=== PATIENT | female | born 1935 | race Hispanic/Latino ===

== ENCOUNTER 2017-09-22 17:46 | Inpatient (IN) | payer MEDICARE, OTHER ==
[2017-09-22] MEDS ORDERED: Levalbuterol 1.25 MG/3 ML Inhal Soln UD IH STA ×2 (18:28→18:35)
--- NOTE | 2017-09-22 19:00 | RAD ---
HISTORY: cough COMPARISON: None. FINDINGS: LUNGS: Right upper lobe infiltrate/volume loss. Underlying mass is not excluded. Consolidative changes left lower lobe lateral segment. PLEURA: Left pleural effusion. CARDIOVASCULAR: No radiographic findings to suggest acute or significant cardiovascular disease. OSSEOUS STRUCTURES: No significant abnormalities. VISUALIZED UPPER ABDOMEN: Normal. OTHER FINDINGS: None. IMPRESSION: Infiltrate/ mass right upper lobe. Left pleural effusion likely partially loculated with underlying compressive atelectasis.
[2017-09-22 19:06] LABS: VENOUS BLOOD GAS BASE EXCESS 21.4 mmol/L (0.0-2.0); VENOUS BLOOD GAS PO2 27 mm/Hg (30-55); VENOUS BLOOD PH 7.34 (7.32-7.43)
[2017-09-22 19:13] LABS: BASO # 0.01 K/mm3 (0.0-2.0); BASO % 0.1 % (0.0-3.0); EOS # 0.2 (0.0-0.7); EOS % 1.3 % (1.5-5.0); GRAN # 8.49 (1.4-6.5); GRAN % 74.3 % (50.0-68.0); HEMOGLOBIN 11.4 g/dL (12.0-16.0); LYMPH # 1.4 (1.2-3.4); LYMPH % 12.1 % (22.0-35.0); MEAN CELL VOLUME 93.6 fl (80.0-105.0); MEAN CORPUSCULAR HEMOGLOBIN 27.2 pg (25.0-35.0); MEAN CORPUSCULAR HGB CONC 29.1 g/dl (31.0-37.0); MONO # 1.4 (0.1-0.6); MONO % 12.2 % (1.0-6.0); RBC 4.19 10^6/uL (3.5-6.1); RED CELL DISTRIBUTION WIDTH 15.1 % (11.5-14.5); WHITE BLOOD COUNT 11.4 10^3/ul (4.5-11.0)
[2017-09-22 19:17] LABS: ALBUMIN 3.7 g/dL (3.0-4.8); ALT/SGPT 32 U/L (7-56); AST/SGOT 23 U/L (14-36); BLOOD UREA NITROGEN 18 mg/dL (7-21); CALCIUM 10.3 mg/dL (8.4-10.5); GFR AFRICAN-AMERICAN > 60; GFR NON-AFRICAN AMERICAN > 60
[2017-09-22 19:20] LABS: PARTIAL THROMBOPLASTIN TIME 29.5 Seconds (25.1-36.5); PROTHROMBIN TIME 11.8 SECONDS (9.4-12.5)
[2017-09-22 19:29] LABS: B-TYPE NATRIURETIC PEPTIDE 93.2 pg/mL (0-450); TROPONIN I < 0.01 ng/mL
--- NOTE | 2017-09-22 19:49 | ED PDOC ---
Arrival/HPI - General Chief Complaint: Cough, Cold, Congestion Time Seen by Provider: 09/22/17 18:27 Historian: Patient - History of Present Illness Narrative History of Present Illness (Text): 09/22/17 19:46 82yo female with PMhx of COPD, Lung CA, hypothyroid, hypertension who present with complaint of greenish productive cough, generalized weakness and rhinorrhea. also reports worsening SOB for the past few days. States she uses oxygen at home. She reports that she did radiation last year, after she was diagnosed in 2016 with Lung CA. She denies fever, chills, nausea, vomiting, chest pain, sick contact, travel. Past Medical History - Provider Review Nursing Documentation Reviewed: Yes - Infectious Disease Hx of Infectious Diseases: None - Cardiac Hx Hypertension: Yes - Pulmonary Hx Chronic Obstructive Pulmonary Disease (COPD): Yes Other/Comment: Lung CA - Psychiatric Hx Substance Use: No Family/Social History - Physician Review Nursing Documentation Reviewed: Yes Family/Social History: Unknown Family HX Smoking Status: Never Smoked Hx Alcohol Use: No Hx Substance Use: No Allergies/Home Meds Allergies/Adverse Reactions: Allergies codeine Allergy (Verified 09/22/17 17:55) ANAPHYLAXIS Home Medications: Home Meds Medication Instructions Recorded Confirmed Aspirin [Ecotrin] 81 mg PO DAILY 09/22/17 09/22/17 Atorvastatin [Lipitor] 20 mg PO DAILY 09/22/17 09/22/17 Isosorbide Mononitrate [Isosorbide 30 mg PO DAILY 09/22/17 09/22/17 Mononitrate ER] Levetiracetam [Roweepra] 500 mg PO BID 09/22/17 09/22/17 Levothyroxine [Synthroid] 25 mcg PO DAILY 09/22/17 09/22/17 Losartan/Hydrochlorothiazide 100 tab PO DAILY 09/22/17 09/22/17 [Losartan-Hctz 100-25 mg Tab] Umeclidinium Brm/Vilanterol Tr 62.5 puff PO DAILY 09/22/17 09/22/17 [Anoro Ellipta 62.5-25 Mcg INH] Verapamil [Calan SR Tab] 240 mg PO DAILY 09/22/17 09/22/17 Review of Systems - Physician Review All systems were reviewed & negative as marked: Yes - Review of Systems Constitutional: Fatigue Eyes: Normal ENT: Normal Respiratory: SOB, Cough, Sputum. absent: Wheezing Cardiovascular: Normal Gastrointestinal: Normal Genitourinary Female: Normal Musculoskeletal: Normal Skin: Normal Neurological: Normal Endocrine: Normal Hemo/Lymphatic: Normal Psychiatric: Normal Physical Exam Vital Signs Reviewed: Yes Vital Signs Temp Pulse Resp BP Pulse Ox 09/22/17 20:08 77 18 141/71 100 09/22/17 18:03 97.5 F L 79 21 143/72 93 L Temperature: Afebrile Blood Pressure: Normal Pulse: Regular Respiratory Rate: Normal Appearance: Positive for: Well-Appearing, Non-Toxic, Comfortable Pain Distress: None Mental Status: Positive for: Alert and Oriented X 3 - Systems Exam Head: Present: Atraumatic, Normocephalic Pupils: Present: PERRL Extroacular Muscles: Present: EOMI Conjunctiva: Present: Normal Mouth: Present: Moist Mucous Membranes Neck: Present: Normal Range of Motion Respiratory/Chest: Present: Good Air Exchange, Decreased Breath Sounds (Diffuse decrease BS x 4). No: Respiratory Distress, Accessory Muscle Use, Wheezes, Rales, Retracting, Rhonchi, Tachypneic Cardiovascular: Present: Regular Rate and Rhythm, Normal S1, S2. No: Murmurs Abdomen: Present: Normal Bowel Sounds. No: Tenderness, Distention, Peritoneal Signs Back: Present: Normal Inspection Upper Extremity: Present: Normal Inspection. No: Cyanosis, Edema Lower Extremity: Present: Normal Inspection. No: Edema Neurological: Present: GCS=15, CN II-XII Intact, Speech Normal Skin: Present: Warm, Dry, Normal Color. No: Rashes Psychiatric: Present: Alert, Oriented x 3, Normal Insight, Normal Concentration Medical Decision Making ED Course and Treatment: 09/23/17 01:08 Pt presented for stated history. Her PO on NC was 93%. Mild leukocytosis was noted. CXR Right upper infiltrate with underlaying mass and LLL mass. Pt is already aware of the mass. Notes that she did Radiation last year. PT with multiple co morbidities, will be admitted for IV abx Case was DW Dr. Palomino and he accepted pt for admission. Result and plan was DW both pt and the daughter and they agreed. - Lab Interpretations Lab Results: 09/22/17 18:45 09/22/17 18:45 Lab Results 09/22/17 18:45: pO2 27 L, VBG pH 7.34, VBG pCO2 98.0 H*, VBG HCO3 52.9 H, VBG Total CO2 55.9 H, VBG O2 Sat (Calc) 57.9, VBG Base Excess 21.4 H, VBG Potassium 4.4, Sodium 138.0, Chloride 96.0 L, Glucose 126 H, Lactate 1.4, FiO2 21.0, Venous Blood Potassium 4.4 09/22/17 18:45: Sodium 141, Chloride 88 L, Potassium 4.4, Carbon Dioxide 39 H, Anion Gap 18, BUN 18, Creatinine 0.7, Est GFR ( Amer) > 60, Est GFR (Non- Af Amer) > 60, Random Glucose 121 H, Calcium 10.3, Total Bilirubin 0.4, AST 23, ALT 32, Alkaline Phosphatase 89, Lactate Dehydrogenase 311 L, Total Creatine Kinase 21 L, Troponin I < 0.01, NT-Pro-B Natriuret Pep 93.2, Total Protein 7.2, Albumin 3.7, Globulin 3.5, Albumin/Globulin Ratio 1.0 L 09/22/17 18:45: PT 11.8, INR 1.00, APTT 29.5 09/22/17 18:45: WBC 11.4 H, RBC 4.19, Hgb 11.4 L, Hct 39.2, MCV 93.6, MCH 27.2, MCHC 29.1 L, RDW 15.1 H, Plt Count 248, MPV 10.0, Gran % 74.3 H, Lymph % (Auto) 12.1 L, Bay % (Auto) 12.2 H, Eos % (Auto) 1.3 L, Baso % (Auto) 0.1, Gran # 8.49 H, Lymph # (Auto) 1.4, Bay # (Auto) 1.4 H, Eos # (Auto) 0.2, Baso # (Auto ) 0.01 - RAD Interpretation Radiology Orders: 09/22/17 18:28 CHEST PORTABLE [RAD] Stat - Medication Orders Current Medication Orders: Albuterol/Ipratropium (Duoneb 3 Mg/0.5 Mg (3 Ml) Ud) 3 ml IH Q2H PRN PRN Reason: Shortness of Breath Last Admin: 09/22/17 23:34 Dose: 3 ml Albuterol/Ipratropium (Duoneb 3 Mg/0.5 Mg (3 Ml) Ud) 3 ml IH [id number] KATE Last Admin: 09/23/17 01:07 Dose: Aspirin (Ecotrin) 81 mg PO DAILY KATE Ceftriaxone Sodium (Rocephin 1 Gram Ivpb) 1 gm in 100 mls @ 100 mls/hr IVPB DAILY KATE PRN Reason: Protocol Azithromycin 250 mg/ Sodium (Chloride) 250 mls @ 167 mls/hr IVPB DAILY KATE PRN Reason: Protocol Methylprednisolone (Solu-Medrol) 40 mg IV Q12 KATE Last Admin: 09/22/17 22:24 Dose: 40 mg eMAR Start Stop Document 09/22/17 22:24 OCS (Rec: 09/22/17 22:24 OCS [id number]) Intravenous Solution Start Date 09/22/17 Start Time 22:24 End Date 09/22/17 End time 22:26 Total Infusion Time 2 Pantoprazole Sodium (Protonix Ec Tab) 40 mg PO 0630 KATE Discontinued Medications Ceftriaxone Sodium (Rocephin 1 Gram Ivpb) 1 gm in 100 mls @ 200 mls/hr IVPB STAT STA PRN Reason: Protocol Stop: 09/22/17 20:24 Last Admin: 09/22/17 20:47 Dose: 200 mls/hr eMAR Start Stop Document 09/22/17 20:47 OCS (Rec: 09/22/17 20:48 OCS [id number]) Intravenous Solution Start Date 09/22/17 Start Time 20:48 End Date 09/22/17 End time 21:18 Total Infusion Time 30 Azithromycin (Zithromax 500mg In Ns) 500 mg in 250 mls @ 167 mls/hr IVPB STAT STA PRN Reason: Protocol Stop: 09/22/17 21:24 Last Admin: 09/22/17 22:24 Dose: 167 mls/hr eMAR Start Stop Document 09/22/17 22:24 OCS (Rec: 09/22/17 22:25 OCS [id number]) Intravenous Solution Start Date 09/22/17 Start Time 22:25 End Date 09/22/17 End time 23:55 Total Infusion Time 90 Levalbuterol HCl (Xopenex) 1.25 mg IH STAT STA Stop: 09/22/17 18:29 Last Admin: 09/22/17 19:45 Dose: 1.25 mg Levalbuterol HCl (Xopenex) 1.25 mg IH STAT STA Stop: 09/22/17 18:36 Last Admin: 09/22/17 20:48 Dose: Methylprednisolone (Solu-Medrol) 125 mg IVP STAT STA Stop: 09/22/17 18:29 Last Admin: 09/22/17 19:45 Dose: 125 mg IVP Administration Document 09/22/17 19:45 [email or web address] (Rec: 09/22/17 19:45 [id number] Charges for Administration # of IVP Administrations 1 Disposition/Present on Arrival - Present on Arrival Any Indicators Present on Arrival: No History of DVT/PE: No History of Uncontrolled Diabetes: No Urinary Catheter: No History of Decub. Ulcer: No History Surgical Site Infection Following: None - Disposition Have Diagnosis and Disposition been Completed?: Yes Diagnosis: Pneumonia, Lung cancer Disposition: HOSPITALIZED Disposition Time: 19:50 Patient Problems: Current Active Problems Problem Status Onset Lung cancer Acute Pneumonia Acute Condition: FAIR
[2017-09-22] MEDS ORDERED: Azithromycin 500MG/NS 250ml 500 MG/250 ML BAG IVPB STA (19:55)
[2017-09-22] MEDS ORDERED: cefTRIAXone 1 gm 1 GM/100 ML BAG IVPB STA (19:55)
[2017-09-22] MEDS ORDERED: Albuterol-Ipratrop 3 mg / 0.5 (3 ml) UD IH PRN (21:24)
[2017-09-22] MEDS: MethylPREDNISolone 40 mg Vial IV SCH (22:24)
[2017-09-23] MEDS: Albuterol-Ipratrop 3 mg / 0.5 (3 ml) UD IH SCH ×4 (01:07→19:40)
[2017-09-23] MEDS: Pantoprazole 40 mg EC Tab PO SCH (06:59)
--- NOTE | 2017-09-23 08:06 | HP ---
HISTORY OF PRESENT ILLNESS: The patient is 82-year-old, seen and examined, came to the emergency room because of increasing cough, congestion, and shortness of breath, has been going on for almost a week, got worse today, complained of generalized weakness, complained of having productive yellow phlegm with increasing weakness and runny nose. PAST MEDICAL HISTORY: The patient has a significant past medical history of: 1. COPD. 2. History of CA of lung. 3. Hypothyroidism. 4. Hypertension. The patient had radiation done last year. She was diagnosed with CA of lung in 2016. ALLERGIES: THE PATIENT IS ALLERGIC TO CODEINE. MEDICATIONS AT HOME: She is on home oxygen and omeprazole. SOCIAL HISTORY: Denies smoking, drinking or alcohol use. REVIEW OF SYSTEMS: Significant for generalized weakness, increasing shortness of breath, or cough. PHYSICAL EXAMINATION GENERAL: On examination, the patient is awake, alert, oriented and communicative. VITAL SIGNS: The patient is afebrile. Pulse 79, respirations 21, and blood pressure 140/71. LUNGS: Bilateral decreased breath sounds. HEART: S1 and S2 audible. ABDOMEN: Soft, nontender. No rebound. No guarding. NEUROLOGIC: The patient is awake, alert, oriented, and able to communicate. LABORATORY EXAM: WBC 11.4, hemoglobin 11.4, hematocrit 39.2, and platelets 248,000. PT 11.8 and INR 1.00. Chemistries: Sodium 141, potassium 4.4, chloride 88, CO2 39, BUN 18, creatinine 0.7, and blood sugar 121. LFTs are within normal limits. LDH is 311. Troponin is 0.01, BNP 93. X-ray shows right upper lobe infiltrate and has mass in the left upper lung. ASSESSMENT 1. Right upper lobe infiltrate. 2. Left upper lobe mass. 3. Hypertension. 4. Hyperlipidemia. 5. History of carcinoma of lung, status post radiation. PLAN: This patient will be admitted; started on IV steroids, IV antibiotics, nebulizer treatment. Monitor blood sugar, monitor blood pressure. Rosana Palomino MD
[2017-09-23] MEDS: cefTRIAXone 1 gm 1 GM/100 ML BAG IVPB SCH (11:10)
[2017-09-23] MEDS: MethylPREDNISolone 40 mg Vial IV SCH ×2 (11:10→21:34)
[2017-09-23] MEDS: Azithromycin 250 MG in Sodium Chloride 0.9% 250 ML IVPB SCH (11:11)
[2017-09-23] MEDS ORDERED: [UNRECOGNIZED DRUG - OTHER] PO SCH (12:15)
[2017-09-23] MEDS ORDERED: HYDROCHLOROTHIAZIDE PO SCH (12:15)
[2017-09-23] MEDS ORDERED: LOSARTAN PO SCH (12:15)
[2017-09-23] MEDS: Levothyroxine 25 MCG TAB PO SCH (12:18)
[2017-09-23] MEDS: Verapamil 240 mg ER Tab PO SCH (12:50)
--- NOTE | 2017-09-23 14:29 | CT ---
PROCEDURE: CT Chest without contrast HISTORY: lung mass COMPARISON: None. TECHNIQUE: Contiguous axial images were obtained through the chest without intravenous contrast enhancement. Sagittal and coronal reconstructions were performed. Radiation dose (DLP): 530.42 mGy-cm. This CT exam was performed using one or more of the following dose reduction techniques: Automated exposure control, adjustment of the mA and/or kV according to patient size, and/or use of iterative reconstruction technique. FINDINGS: LUNGS: There is a right upper lobe mass, irregular in shape, measuring approximately 4.4 x 2.9 x 2.5 cm. There is associated minimal right upper lobe atelectasis abutting the minor fissure. Mass extends to the right hilum. There is no other pulmonary mass identified. There is mild centrilobular pulmonary emphysema. There is no acute infiltrate. There is minimal left lower lobe subsegmental atelectasis adjacent to a small pleural effusion. MEDIASTINUM: Unremarkable thoracic aorta. No aneurysm. Mild cardiomegaly. There is shift of the heart and mediastinum towards the left side which should indicate some left-sided volume loss though there is no atelectasis evident. Main pulmonary artery unremarkable. No vascular congestion. There is mild mediastinal lymphadenopathy. There is a 1.5 cm short axis precarinal lymph node. Several other minimally enlarged mediastinal nodes are evident. The left hilum is unremarkable. PLEURA: Minimal left pleural effusion. No right pleural effusion. No pneumothorax. BONES: No fracture. No destructive lesion. UPPER ABDOMEN: Small hiatal hernia. OTHER FINDINGS: None. IMPRESSION: Irregular right upper lobe mass with mild associated right upper lobe atelectasis. The mass measures approximately 4.4 cm in greatest dimension. Strongly suspicious for malignancy. Extension to right hilum with mild associated mediastinal lymphadenopathy. Very small left pleural effusion. Left-sided volume loss without evidence of atelectasis, as demonstrated by shift of heart and mediastinum towards the left side. Mild cardiomegaly. Small hiatal hernia. Mild centrilobular pulmonary emphysema.
--- NOTE | 2017-09-23 15:53 | PN ---
DATE: SUBJECTIVE: The patient is 82 years old, seen and examined, seems to be doing a little better. Daughter present at bedside. Denies any nausea or vomiting. No diarrhea, no shortness of breath. PHYSICAL EXAMINATION: VITAL SIGNS: She is afebrile, pulse 82, respirations 24, blood pressure 130/75. LUNGS: Bilateral few expiratory rhonchi. HEART: S1, S2 audible. ABDOMEN: Soft, nontender. No rebound, no guarding. NEUROLOGIC: She is awake, alert, oriented. Able to communicate. LABORATORY DATA: Her blood sugar is 187. Flu test is negative. ASSESSMENT: 1. Right upper lobe pneumonia. 2. Chronic obstructive pulmonary disease exacerbation. 3. History of cancer of lung, status post radiation, last 08/2016. 4. Left pleural effusion, partially loculated with underlying compressive atelectasis. 5. Hypothyroidism. 6. History of seizure disorder. PLAN: We will continue patient on antibiotics. I will order for CT scan of the chest to see details of the mass. As per patient's daughter, they were told that mass has almost gone away. Once the CT scan is available, we will discuss with patient further management. Rosana Palomino MD
[2017-09-24] MEDS: Albuterol-Ipratrop 3 mg / 0.5 (3 ml) UD IH SCH ×4 (01:27→20:02)
[2017-09-24] MEDS: Pantoprazole 40 mg EC Tab PO SCH (06:22)
[2017-09-24] MEDS: Levothyroxine 25 MCG TAB PO SCH (11:38)
[2017-09-24] MEDS: Verapamil 240 mg ER Tab PO SCH (11:39)
[2017-09-24] MEDS: cefTRIAXone 1 gm 1 GM/100 ML BAG IVPB SCH (11:40)
[2017-09-24] MEDS: MethylPREDNISolone 40 mg Vial IV SCH ×2 (11:40→22:06)
[2017-09-24 12:05] LABS: ARTERIAL BLOOD GAS HEMOGLOBIN 11.1 g/dL (11.7-17.4); ARTERIAL BLOOD GAS O2 CAPACITY 15.4 mL/dl (16-24); ARTERIAL BLOOD GAS O2 CONTENT 15.2 ML/dl (15-23); ARTERIAL BLOOD GAS PCO2 64 mm/Hg (35-45); ARTERIAL BLOOD GAS PH 7.42 (7.35-7.45); ARTERIAL BLOOD GAS TCO2 43.5 mmol.L (22-28)
[2017-09-24 12:10] LABS: ARTERIAL BLOOD GAS HCO3 41.5 mmol/L (21-28)
[2017-09-24] MEDS: Azithromycin 250 MG in Sodium Chloride 0.9% 250 ML IVPB SCH (13:00)
--- NOTE | 2017-09-24 15:56 | PN ---
DATE: SUBJECTIVE: The patient is 82-year-old, seen and examined, lying in bed, seems to be comfortable. No cough. No congestion. No nausea or vomiting. She states her shortness of breath is much better. PHYSICAL EXAMINATION: VITAL SIGNS: She is afebrile, pulse 88, respirations 20, and blood pressure 126/67. LUNGS: Bilateral good airflow. Occasional expiratory rhonchi. HEART: S1 and S2 audible. ABDOMEN: Soft and nontender. No rebound. No guarding. NEUROLOGIC: The patient is awake, alert, oriented, ambulatory. EXTREMITIES: Bilateral leg, no edema. LABORATORY DATA: Blood sugar is 174. She has CT scan of the chest done that shows irregular right upper lobe mass with mild associated right upper lobe atelectasis. Mass measures 4.4 cm in greatest dimension, suspicious for malignancy, extension to the right hilum with mild associated mediastinal lymphadenopathy, very small left pleural effusion, left side volume loss without evidence of atelectasis. ASSESSMENT: 1. Chronic obstructive pulmonary disease exacerbation. 2. Bronchospasm. 3. Right upper lung mass, status post 36 rounds of radiation. 4. History of seizure disorder. 5. Hypothyroidism. 6. Hypertension. 7. Hyperlipidemia. PLAN: We will continue the patient on current medication. Continue on nebulizer treatment. The patient states she became little confused and disoriented last night. I will cut down her steroids since her wheezing has improved. We will follow up closely in a.m. and taper down her steroids. Encourage ambulation and we will reevaluate in a.m. Rosana Palomino MD
[2017-09-24] MEDS: Budesonide 0.5 mg/2 ml Inhal Susp UD IH SCH (20:02)
--- NOTE | 2017-09-24 21:40 | CON ---
DATE: PULMONARY CONSULTATION REASON FOR CONSULTATION: Lung mass. REFERRING PHYSICIAN: Rosana Palomino MD. HISTORY OF PRESENT ILLNESS: The patient is an 82-year-old female, with past medical history significant for advanced lung cancer (diagnosed in 2016), status post radiation therapy (no chemotherapy), advanced chronic obstructive pulmonary disease(on home oxygen), hypothyroidism, hypertension, who presents to [facility] with increasing shortness of breath at rest, dyspnea on exertion, cough, and sputum production for 1 week. There is no history of chest pain, coughing up of blood, or chest pain - made worse with deep respirations. There is no history of temperatures, chills, or infectious exposure. There is no history of night sweats, weight loss, or appetite change prior to the above events. No history of leg or calf pains. No history of syncope or diaphoresis. No history of recent travel or trauma. REVIEW OF SYSTEMS: No history of nausea, vomiting, or diarrhea. No acute urinary symptoms. No new neurologic or musculoskeletal complaints. Rest of the review of systems negative. ALLERGIES: CODEINE. SOCIAL HISTORY: Positive for former tobacco usage. No alcohol. FAMILY HISTORY: No inheritable diseases. HOME MEDICATIONS: Include Synthroid, Ecotrin, losartan, Lipitor, isosorbide mononitrate, Anoro Ellipta. PHYSICAL EXAMINATION: GENERAL: Patient appears comfortable this morning. She is not short of breath at rest. VITAL SIGNS: Temperature is 98.2, pulse 88, respirations 18/20, blood pressure 126/67. Oxygen saturation on nasal cannula is 96%. HEENT: Normocephalic and atraumatic. No JVD. CARDIOVASCULAR: Systolic ejection murmur at the lower left sternal border. No S3 gallop. LUNGS: Decreased breath sounds at the bases. Mild bilateral rhonchi and wheezing are appreciated. EXTREMITIES: Mild edema. No cyanosis, no clubbing. Calves are nontender to palpation. GASTROINTESTINAL: Abdomen is soft, nontender, and nondistended. Bowel sounds are positive. SKIN: No acute rash. NEUROLOGIC: Exam limited to present time. PERTINENT LABORATORY DATA: CAT scan of the chest was done yesterday and reviewed. There is a large right upper lobe lung mass seen. There is also a small left pleural effusion with adjacent atelectasis. There is also increased mediastinal lymphadenopathy noted. CBC: White count 11.4, hemoglobin 11.4, hematocrit 39.2, platelets of 248,000. Complete metabolic profile: Chloride 88, carbon dioxide 39, glucose 121, LDH 311, rest of the metabolic profile is within normal limits. IMPRESSION: 1. Acute bronchitis. 2. Advanced chronic obstructive pulmonary disease, on home oxygen. 3. Advanced lung cancer. 4. Mild anemia. PLAN: The patient presents to [facility] with a 1-week history of worsening pulmonary symptoms. I did question the patient at length, as well as reviewed the chart at length. The patient does have a history of advanced lung cancer -- first diagnosed in 2016. As per the patient, the cancer was first diagnosed in both of the upper lobes. As above, I did review the CAT scan of the chest. The CAT scan of the chest reveals a large right upper lobe mass. There is also associated mediastinal adenopathy. Lastly, there is also a small left pleural effusion with adjacent atelectasis. I will discuss the above history with the nursing staff and nurse practitioner. We will try to get the old records from [place] as soon as possible. On physical exam, there is mild bronchospasm noted. I will continue the current nebulizer treatments and intravenous steroids for now. I will also add inhaled Pulmicort. The patient has also been placed on intravenous antibiotic therapy. There is no history of temperatures. There is a mild leukocytosis. I will continue with the antibiotic therapy for now. The patient does feel better this morning and is clinically improved -- compared to the past few days. However, unfortunately, her overall status/prognosis is poor. Again, we will try to obtain the old records from [place] as soon as possible. I will discuss the above with Dr. Palomino. Thank you very much for this pulmonary consultation. Ace Tovar MD ITA
[2017-09-25] MEDS: Albuterol-Ipratrop 3 mg / 0.5 (3 ml) UD IH SCH ×4 (01:16→19:58)
[2017-09-25] MEDS: Pantoprazole 40 mg EC Tab PO SCH (07:37)
--- NOTE | 2017-09-25 08:58 | PN ---
DATE: 09/25/2017 PULMONARY NOTE SUBJECTIVE: The patient appears very comfortable this morning. She is not short of breath at rest. PHYSICAL EXAMINATION VITAL SIGNS: (Last noted in the computer): Temperature is 98.2, pulse 88, respirations 18, blood pressure 126/67. Oxygen saturation on nasal cannula is 96%. HEENT: Normocephalic, atraumatic. No JVD. CARDIOVASCULAR: Systolic ejection murmur at the lower left sternal border. No S3 gallop. LUNGS: Improved breath sounds at the bases. Mild/less rhonchi. No wheezing this morning. EXTREMITIES: Mild edema. No cyanosis, no clubbing. Calves are nontender to palpation. GI: Abdomen is soft, nontender and nondistended. Bowel sounds are positive. SKIN: No acute rash. NEUROLOGIC: Limited at the present time. PERTINENT LABORATORY DATA: Arterial blood gas was done yesterday on nasal cannula. Results are: PH 7.42, pCO2 of 64, pO2 of 93. IMPRESSION: 1. Acute bronchitis. 2. Advanced chronic obstructive pulmonary disease, on home oxygen. 3. Advanced lung cancer. 4. Mild anemia. PLAN: The patient appears very comfortable this morning. She is not short of breath at rest. She does state to feeling much, much better overall. On physical exam, there is certainly less bronchospasm noted. I will continue the current nebulizer treatments and low-dose intravenous steroids (decreased yesterday) for now. I have also reviewed the arterial blood gas. The pCO2 is significantly elevated. However, the pH is normal - indicating advanced chronic lung disease. As noted yesterday, I did discuss the CAT scan findings with the patient at length. I also discussed the case with the nurse practitioner on 5R. We are trying to obtain the records from [place]. I believe the patient has had maximum radiation already. She is definitely not interested in chemotherapy at this point in time. The patient also has two grandchildren who are physicians. I asked the patient to give my number(she has my card) to the grandchildren-- so that we can have additional conversation. Clinical status of the patient is significantly improved - compared to the initial presentation. However, again, unfortunately, the future status/prognosis for this jeffrey elderly patient does remain poor. I did discuss the above with Dr. Palomino yesterday. I will also discuss the case with her today. Ace Tovar MD [facility] # [id number] ITA
[2017-09-25] MEDS: MethylPREDNISolone 40 mg Vial IV SCH ×2 (10:20→21:25)
[2017-09-25] MEDS: Levothyroxine 25 MCG TAB PO SCH (10:20)
[2017-09-25] MEDS: Verapamil 240 mg ER Tab PO SCH (10:22)
[2017-09-25] MEDS: cefTRIAXone 1 gm 1 GM/100 ML BAG IVPB SCH (10:22)
[2017-09-25] MEDS: Azithromycin 250 MG in Sodium Chloride 0.9% 250 ML IVPB SCH (12:00)
[2017-09-25] MEDS: Budesonide 0.5 mg/2 ml Inhal Susp UD IH SCH ×2 (13:51→19:58)
[2017-09-25 17:14] VITALS: RESP 20
--- NOTE | 2017-09-25 20:17 | PN ---
DATE: SUBJECTIVE: The patient is an 82-year-old, seen and examined, sitting in chair, seems to be comfortable. Less cough and congestion. No shortness of breath. PHYSICAL EXAMINATION: VITAL SIGNS: She is afebrile, pulse 84, respirations 18, blood pressure 118/70. LUNGS: Bilateral fair airflow. Few occasional rhonchi on the right upper lung region. HEART: S1, S2 audible. ABDOMEN: Soft, nontender. No rebound, no guarding. NEUROLOGIC: Patient is awake and alert, able to communicate. LABORATORY DATA: Blood sugar is 174. Flu test is negative. ASSESSMENT AND PLAN: 1. Right upper lung mass. 2. Asthmatic bronchitis. 3. Chronic obstructive pulmonary disease exacerbation. 4. Hypertension. 5. Seizure disorder. 6. Hyperlipidemia. PLAN: The patient is slowly improving. Steroid has been tapered down. Continue antibiotics, and get physical therapy evaluation to assess if she is a candidate to go home on p.o. medication or she needs rehab. Rosana Palomino MD
[2017-09-26] MEDS: Albuterol-Ipratrop 3 mg / 0.5 (3 ml) UD IH SCH ×3 (01:53→13:14)
[2017-09-26] MEDS: Pantoprazole 40 mg EC Tab PO SCH (06:33)
[2017-09-26] MEDS: Budesonide 0.5 mg/2 ml Inhal Susp UD IH SCH (07:40)
[2017-09-26 09:08] VITALS: BP 132/63; PULSE 84; TEMP 98.8; O2SAT 95
--- NOTE | 2017-09-26 09:08 | PN ---
DATE: 09/26/2017 PULMONARY NOTE SUBJECTIVE: The patient appears very comfortable this morning. She is not short of breath at rest. PHYSICAL EXAMINATION VITAL SIGNS: (Last noted in the computer): Temperature is 97.9, pulse is 56, respirations 18, blood pressure 124/57. Oxygen saturation on nasal cannula is 100%. HEENT: Normocephalic, atraumatic. No JVD. CARDIOVASCULAR: Systolic ejection murmur at the lower left sternal border. No S3 gallop. LUNGS: Very minimal/less rhonchi. No wheezing. EXTREMITIES: Mild edema. No cyanosis, no clubbing. Calves are nontender to palpation. GI: Abdomen is soft, nontender and nondistended. Bowel sounds are positive. SKIN: No acute rash. NEUROLOGIC: Limited at the present time. IMPRESSION: 1. Acute bronchitis. 2. Advanced chronic obstructive pulmonary disease, on home oxygen. 3. Advanced lung cancer. 4. Mild anemia. PLAN: The patient appears very comfortable this morning. She is not short of breath at rest. She does state to feeling much, much better overall. On physical exam, her bronchospasm continues to resolve. In addition, the oxygen saturation is now 100% on nasal cannula. I will continue the current nebulizer treatments and change to oral steroids this morning. I did have a long talk with the patient again in reference to her CAT scan and overall condition. At this point in time, the patient does not want any additional evaluation regarding her right upper lobe lung mass. She also stated to me again that she does not want any chemotherapy. I then offered the idea of getting a PET scan as an outpatient - to more adequately assess her disease. She also does not want any PET scanning done. I then asked the patient if she can call her daughter - so I can meet with her this morning. A tentative meeting is scheduled at 11:00 a.m. In addition, we have not received any old records from [place]. I did discuss this issue with the nursing staff this morning. The clinical status of this patient is significantly improved - compared to the initial presentation. However, again, unfortunately, the future status/prognosis for this jeffrey elderly patient is very poor. Again, I have a tentative family meeting scheduled at 11:00 a.m. I will discuss the above with Dr. Palomino later this morning. Ace Tovar MD [facility] # [id number]
[2017-09-26] MEDS: Verapamil 240 mg ER Tab PO SCH (09:38)
[2017-09-26] MEDS: Levothyroxine 25 MCG TAB PO SCH (09:38)
[2017-09-26] MEDS: cefTRIAXone 1 gm 1 GM/100 ML BAG IVPB SCH (09:43)
[2017-09-26] MEDS: Azithromycin 250 MG in Sodium Chloride 0.9% 250 ML IVPB SCH (09:44)
[2017-09-27] MEDS ORDERED: Cefpodoxime (Vantin) 200 mg Tab PO SCH (10:00)
== END 2017-09-26 15:00 | disposition home or self-care (01) | DRG 194 ==
LOC: ED 17:46 → ERH 20:11 → 5RNO 23:09 → OBSVTOIN 09-23 17:05 → UNDODISIN 09-24 14:57
PROVIDERS: ADMIT Internal Medicine; ATTEND Internal Medicine
DX: J18.9 Pneumonia, unspecified organism (principal); J44.1 Chronic obstructive pulmonary disease with (acute) exacerbation; C34.11 Malignant neoplasm of upper lobe, right bronchus or lung; J44.0 Chronic obstructive pulmonary disease with (acute) lower respiratory infection; J20.9 Acute bronchitis, unspecified; J90 Pleural effusion, not elsewhere classified; J98.11 Atelectasis; D64.9 Anemia, unspecified; E03.9 Hypothyroidism, unspecified; E78.5 Hyperlipidemia, unspecified; G40.909 Epilepsy, unspecified, not intractable, without status epilepticus; I10 Essential (primary) hypertension; Z99.81 Dependence on supplemental oxygen; Z79.82 Long term (current) use of aspirin; Z87.891 Personal history of nicotine dependence; Z88.5 Allergy status to narcotic agent

== ENCOUNTER 2017-12-18 19:07 | Inpatient (IN) | payer MEDICARE ==
--- NOTE | 2017-12-18 19:30 | ED PDOC ---
Arrival/HPI - General Chief Complaint: Shortness Of Breath Time Seen by Provider: 12/18/17 19:23 - History of Present Illness Narrative History of Present Illness (Text): 82 y/o F c PMHx COPD, Lung CA, hypothyroid, hypertension p/w dyspnea x 1 week. Patient states she has dyspnea at baseline but worse than typical for the past week, which she states feels similar to previous COPD exacerbations and dyspnea from lung cancer. She is on home O2 at 3.5 L. She denies fever, chills, body aches, chest pain, leg swelling, vomiting, recent travel, sick contacts. PMD Kerry Cortes Past Medical History - Infectious Disease Hx of Infectious Diseases: None - Cardiac Hx Hypertension: Yes - Pulmonary Hx Chronic Obstructive Pulmonary Disease (COPD): Yes Other/Comment: Lung CA Stage 4 - Neurological Hx Neurological Disorder: No - HEENT Hx Cataracts: Yes (B/L removed) - Renal Hx Renal Disorder: No - Endocrine/Metabolic Hx Endocrine Disorders: Yes Hx Hypothyroidism: Yes - Hematological/Oncological Hx Cancer: Yes (lung ca 2016) - Integumentary Hx Dermatological Disorder: No - Musculoskeletal/Rheumatological Hx Musculoskeletal Disorders: No Hx Falls: No - Gastrointestinal Hx Gastrointestinal Disorders: No - Genitourinary/Gynecological Hx Genitourinary Disorders: No - Psychiatric Hx Psychophysiologic Disorder: No Hx Substance Use: No Family/Social History Family/Social History: No Known Family HX Smoking Status: Never Smoked Hx Alcohol Use: No Hx Substance Use: No Allergies/Home Meds Allergies/Adverse Reactions: Allergies codeine Allergy (Verified 12/18/17 19:19) ANAPHYLAXIS Home Medications: Home Meds Medication Instructions Recorded Confirmed Aspirin [Ecotrin] 81 mg PO DAILY 09/22/17 09/22/17 Atorvastatin [Lipitor] 20 mg PO DAILY 09/22/17 09/22/17 Isosorbide Mononitrate [Isosorbide 30 mg PO DAILY 09/22/17 09/22/17 Mononitrate ER] Levetiracetam [Roweepra] 500 mg PO BID 09/22/17 09/22/17 Levothyroxine [Synthroid] 25 mcg PO DAILY 09/22/17 09/22/17 Losartan/Hydrochlorothiazide 100 tab PO DAILY 09/22/17 09/22/17 [Losartan-Hctz 100-25 mg Tab] Umeclidinium Brm/Vilanterol Tr 62.5 puff PO DAILY 09/22/17 09/22/17 [Anoro Ellipta 62.5-25 Mcg INH] Verapamil [Calan SR Tab] 240 mg PO DAILY 09/22/17 09/22/17 Review of Systems - Physician Review All systems were reviewed & negative as marked: Yes - Review of Systems Constitutional: absent: Fevers Cardiovascular: absent: Chest Pain Physical Exam - Physical Exam Narrative Physical Exam (Text): Gen: NAD Head: NC/AT Eyes: PERRL ENT: MMM Neck: Supple Chest: No tenderness CV: Regular rate Lungs: Diffuse minimal wheezing, decreased breath sounds, pulse oximetry 99% on 3.5 L NC Abd: Soft, NT Back: No CVA tenderness Extremities: No edema Skin: No rash Neuro: Alert, no focal deficit Vital Signs Temp Pulse Resp BP Pulse Ox 12/18/17 19:16 98.0 F 81 18 142/78 97 12/18/17 19:15 86 18 142/78 91 L Medical Decision Making ED Course and Treatment: Differential includes COPD exacerbation, worsening chronic dyspnea from COPD/ lung cancer, pneumonia, pleural effusion. Plan: CXR, labs, duonebs, steroids. EKG NSR 87 bpm, no ST/T wave changes CXR no new consolidation, unchanged from previous. Patient with increased wheezing after duonebs, improving air movement. 12/18/17 21:23: Case discussed in detail with Dr. Palomino. Accepts patient to her service. - Lab Interpretations Lab Results: 12/18/17 19:42 12/18/17 19:42 Lab Results 12/18/17 19:42: Sodium 142, Potassium 4.4, Chloride 90 L, Carbon Dioxide 45 H, Anion Gap 11, BUN 17, Creatinine 0.6 L, Est GFR ( Amer) > 60, Est GFR ( Non-Af Amer) > 60, Random Glucose 123 H, Calcium 10.1, Total Bilirubin 0.5, AST 26, ALT 24, Alkaline Phosphatase 88, Total Creatine Kinase 33 L, Troponin I < 0.01, NT-Pro-B Natriuret Pep 94.0, Total Protein 6.8, Albumin 3.8, Globulin 3.1 , Albumin/Globulin Ratio 1.2 12/18/17 19:42: WBC 11.1 H, RBC 4.06, Hgb 11.1 L, Hct 37.8, MCV 93.1, MCH 27.3, MCHC 29.4 L, RDW 15.6 H, Plt Count 262, MPV 9.4, Gran % 76.2 H, Lymph % (Auto) 10.7 L, Mcduffie % (Auto) 11.5 H, Eos % (Auto) 1.5, Baso % (Auto) 0.1, Gran # 8.44 H , Lymph # (Auto) 1.2, Mcduffie # (Auto) 1.3 H, Eos # (Auto) 0.2, Baso # (Auto) 0.01 - RAD Interpretation Radiology Orders: 12/18/17 19:24 CHEST PORTABLE [RAD] Stat - Medication Orders Current Medication Orders: Discontinued Medications Albuterol/Ipratropium (Duoneb 3 Mg/0.5 Mg (3 Ml) Ud) 3 ml IH Q15M KATE Stop: 12/18/17 20:01 Last Admin: 12/18/17 20:14 Dose: 3 ml Methylprednisolone (Solu-Medrol) 125 mg IVP STAT STA Stop: 12/18/17 19:25 Last Admin: 12/18/17 19:45 Dose: 125 mg IVP Administration Document 12/18/17 19:45 HI (Rec: 12/18/17 19:45 HI [id number]) Charges for Administration # of IVP Administrations 1 Disposition/Present on Arrival - Present on Arrival Any Indicators Present on Arrival: No History of DVT/PE: No History of Uncontrolled Diabetes: No Urinary Catheter: No History of Decub. Ulcer: No History Surgical Site Infection Following: None - Disposition Have Diagnosis and Disposition been Completed?: Yes Diagnosis: COPD exacerbation Disposition: HOSPITALIZED Disposition Time: 20:34 Patient Plan: Observation, Telemetry Condition: FAIR Referrals: Miriam Payne MD [Primary Care Provider] - Follow up with primary Forms: [employer] (Senegalese)
[2017-12-18] MEDS: Albuterol-Ipratrop 3 mg / 0.5 (3 ml) UD IH SCH ×3 (19:45→20:14)
[2017-12-18 19:59] LABS: BASO # 0.01 K/mm3 (0.0-2.0); BASO % 0.1 % (0.0-3.0); EOS # 0.2 (0.0-0.7); EOS % 1.5 % (1.5-5.0); GRAN # 8.44 (1.4-6.5); GRAN % 76.2 % (50.0-68.0); HEMOGLOBIN 11.1 g/dL (12.0-16.0); LYMPH # 1.2 (1.2-3.4); LYMPH % 10.7 % (22.0-35.0); MEAN CELL VOLUME 93.1 fl (80.0-105.0); MEAN CORPUSCULAR HEMOGLOBIN 27.3 pg (25.0-35.0); MEAN CORPUSCULAR HGB CONC 29.4 g/dl (31.0-37.0); MEAN PLATELET VOLUME 9.4 fl (7.0-11.0); MONO # 1.3 (0.1-0.6); MONO % 11.5 % (1.0-6.0); RBC 4.06 10^6/uL (3.5-6.1); RED CELL DISTRIBUTION WIDTH 15.6 % (11.5-14.5); WHITE BLOOD COUNT 11.1 10^3/ul (4.5-11.0)
[2017-12-18 20:16] LABS: ALB/GLOB RATIO 1.2 (1.1-1.8); ALBUMIN 3.8 g/dL (3.0-4.8); ALT/SGPT 24 U/L (7-56); AST/SGOT 26 U/L (14-36); BLOOD UREA NITROGEN 17 mg/dL (7-21); CALCIUM 10.1 mg/dL (8.4-10.5); GFR AFRICAN-AMERICAN > 60; GFR NON-AFRICAN AMERICAN > 60
[2017-12-18 20:25] LABS: TROPONIN I < 0.01 ng/mL
[2017-12-18] MEDS ORDERED: Albuterol-Ipratrop 3 mg / 0.5 (3 ml) UD IH PRN (22:47)
[2017-12-19] MEDS: MethylPREDNISolone 40 mg Vial IV SCH ×3 (00:36→21:56)
[2017-12-19] MEDS: Albuterol-Ipratrop 3 mg / 0.5 (3 ml) UD IH SCH ×4 (01:44→20:00)
[2017-12-19] MEDS ORDERED: Albuterol-Ipratrop 3 mg / 0.5 (3 ml) UD IH SCH (02:00)
[2017-12-19 02:33] VITALS: BMI 26.6
[2017-12-19] MEDS: Pantoprazole 40 mg EC Tab PO SCH (06:20)
[2017-12-19] MEDS: Levothyroxine 25 MCG TAB PO SCH (06:21)
--- NOTE | 2017-12-19 07:04 | RAD ---
HISTORY: dyspnea COMPARISON: 09/22/2017 single-view chest. 09/23/2017 CT thorax Summary of findings on the comparison examination: There is a right upper lobe mass, irregular in shape, measuring approximately 4.4 x 2.9 x 2.5 cm. There is associated minimal right upper lobe atelectasis abutting the minor fissure. Mass extends to the right hilum. FINDINGS: LUNGS: Consolidative changes, volume loss affecting right upper lobe. These are progressive. PLEURA: Stable left pleural effusion. CARDIOVASCULAR: Normal. OSSEOUS STRUCTURES: No significant abnormalities. VISUALIZED UPPER ABDOMEN: Normal. OTHER FINDINGS: None. IMPRESSION: Progressive consolidative changes/mass right upper lobe.
[2017-12-19] MEDS: Verapamil 240 mg ER Tab PO SCH (09:56)
[2017-12-19] MEDS: levoFLOXacin 500 mg in D5W 500 MG/100 ML BAG IVPB SCH (09:58)
--- NOTE | 2017-12-19 10:59 | HP ---
HISTORY OF PRESENT ILLNESS: The patient is an 82-year-old, patient of , came to the Emergency Room because of some increasing shortness of breath. No history of fever or chills. Patient states she was admitted in September and had similar complaints. She was unable to catch her breath. She has been having generalized weakness. Patient takes nebulizer treatment and home oxygen but despite of doing all these, she was still having shortness of breath, came to Emergency Room for further evaluation. No history of hemoptysis. No hematemesis. Does complain of generalized weakness. PAST MEDICAL HISTORY: She has significant past medical history for CA of lung, that was diagnosed in 2016. Patient had radiation therapy done last year. She also has significant past medical history of; 1. COPD. 2. Hypothyroidism. 3. Hypertension. ALLERGIES: SHE IS ALLERGIC TO CODEINE. MEDICATIONS AT HOME: She is on omeprazole, she was given verapamil 240 daily, Anoro Ellipta, losartan 100 daily, levothyroxine 25 mcg daily, isosorbide, Pulmicort, atorvastatin and aspirin 81 daily. SOCIAL HISTORY: She has grown-up daughters, who are very caring and around her. PHYSICAL EXAMINATION: GENERAL: She is awake, alert, oriented, able to communicate. Mild shortness of breath. VITAL SIGNS: She is afebrile, pulse 81, respirations 18, blood pressure 158/75. LUNGS: Bilateral few expiratory rhonchi. HEART: S1 and S2 audible. ABDOMEN: Soft, nontender. No rebound, no guarding. NEUROLOGIC: She is awake, alert, oriented, able to communicate. EXTREMITIES: Bilateral leg +1 edema. DATA: CT scan of the lung was done in September, shows irregular right upper lung mass with mildly associated right upper lobe atelectasis, mass measures 4.4 cm in greatest dimension, IMPRESSION: 1. Hypothyroidism. 2. Hypertension. 3. Chronic obstructive pulmonary disease. PLAN: The patient will be admitted on Telemetry. Started on IV steroids, nebulizer treatment. DVT prophylaxis and we medication. We will follow up the patient in the morning. Rosana Palomino MD [facility] # [id number]
--- NOTE | 2017-12-19 13:13 | PN ---
DATE: 12/19/2017 SUBJECTIVE: The patient is 82-year-old, seen and examined, lying in bed, seems to be comfortable. She states she feels a little better than yesterday, less shortness of breath. No fever or chills noted. She did eat. No vomiting. PHYSICAL EXAMINATION: VITAL SIGNS: She is afebrile, pulse 94, respirations 18, blood pressure 157/85. LUNGS: Bilateral soft crackle at bases and the right upper lung area. HEART: S1 and S2 audible. ABDOMEN: Soft, nontender. No rebound, no guarding. NEUROLOGICAL: The patient is awake, alert, oriented, communicative. ASSESSMENT: 1. Chronic obstructive pulmonary disease exacerbation. 2. Right lung cancer. 3. Hypertension. 4. Hyperlipidemia. PLAN: I will discontinue Telemetry. I will continue her on IV steroids, continue nebulizer treatment. Start physical therapy and also, consult Dr. Cortes because the patient states she has not been seen by him for a very long time. In the meantime, we will continue her on current treatment. Rosana Palomino MD
[2017-12-19] MEDS ORDERED: Iohexol 350 MG/100 ML VIAL ONE (14:22)
--- NOTE | 2017-12-19 15:46 | CT ---
PROCEDURE: CT Chest with contrast (Pulmonary Angiogram) HISTORY: lung ca COMPARISON: CT 09/23/2017 TECHNIQUE: Axial computed tomography images were obtained of the chest in the pulmonary arterial phase of enhancement. Coronal and sagittal reformatted images were created and reviewed. Intravenous contrast dose: 100 cc of Omni 350 Radiation dose: Total exam DLP = 303 mGy-cm. This CT exam was performed using one or more of the following dose reduction techniques: Automated exposure control, adjustment of the mA and/or kV according to patient size, and/or use of iterative reconstruction technique. FINDINGS: PULMONARY ARTERIES: Unremarkable. No pulmonary embolism. AORTA: No acute findings. No thoracic aortic aneurysm. LUNGS: Large right upper lobe lung mass extending to the right hilum. The mass measures 3.8 x 5.6 cm previously 2.9 x 4.3 cm. PLEURAL SPACES: Unremarkable. No effusion or pneuomothorax. HEART: Unremarkable. No cardiomegaly. No significant pericardial effusion. LYMPH NODES: There is an enlarged pretracheal lymph node measuring 14 x 19 mm. This is unchanged. BONES, CHEST WALL: Unremarkable. No fracture or destructive lesion OTHER FINDINGS: Unremarkable. IMPRESSION: Increased size of right upper lobe lung mass. Stable appearance of pretracheal adenopathy. No evidence of pulmonary embolus
--- NOTE | 2017-12-19 18:56 | CARD ---
APPROVED REPORT EKG Measurement Heart [id number] <Conclusion> Normal sinus rhythm Cannot rule out Anterior infarct, age undetermined Abnormal ECG
--- NOTE | 2017-12-20 01:14 | CON ---
DATE: ONCOLOGY CONSULTATION HISTORY OF PRESENT ILLNESS: This is an 82-year-old woman with lung cancer. She has a right upper lobe lung cancer about 3 cm, she presented with severe COPD, shortness of breath about a month ago. She was not able to undergo a CAT scan guided biopsy; so we did a liquid biopsy, which revealed that she had a PD-L1 positive mutation. So, this is a PD-L1 positive mutated lung cancer. We cannot say if it is adenosquamous, but that is what is driving the tumor. We did look for other markers such as ALK and ROS, BRAF and EGFR, but these are negative. We had a long discussion in the office as to whether to treat with immunotherapy or to observe her and the decision with myself, the patient and the daughter was to observe her and not to treat and with just symptom control. I have not seen her since. What has happened is she was out for dinner and as she was leaving the restaurant, she became suddenly short of breath such that they decided to bring her to the emergency room. She did not have any cough or phlegm or fever and she was not sick up until that moment. PHYSICAL EXAMINATION: SKIN: No petechiae. No bruises. HEENT: Anicteric. NODES: Nonpalpable in axillary, cervical, supraclavicular, or inguinal regions. LUNGS: Showed on the anterior left lung there seems to be a rub, I can pretty much hear rub and it is persisting. I do not rales, rhonchi, wheezing. HEART: S1 and S2. No rub on the heart. ABDOMEN: Shows no liver, no spleen, no tenderness, no rebound. EXTREMITIES: No edema. ASSEMBLER TESTER: No focal finding. LABORATORY DATA: Her BUN and creatinine are good. ASSESSMENT AND PLAN: I am going to order an angiogram to rule out pulmonary embolism; I think that may certainly be possible. The chest x-ray shows somewhat increased amount of atelectasis surrounding the tumor and it may have something to deal with her chronic obstructive pulmonary disease, a little bit worse. It may be an early pneumonia developing, but I suspect that there could be a blood clot causing the shortness of breath. If this is negative that is fine. We will treat for the infection. No plans for giving chemotherapy or immunotherapy at this time. Michael Cortes MD [facility] # [id number]
[2017-12-20] MEDS: Albuterol-Ipratrop 3 mg / 0.5 (3 ml) UD IH SCH ×4 (02:15→20:03)
[2017-12-20] MEDS: Levothyroxine 25 MCG TAB PO SCH (05:31)
[2017-12-20] MEDS: Pantoprazole 40 mg EC Tab PO SCH (05:31)
[2017-12-20] MEDS: levoFLOXacin 500 mg in D5W 500 MG/100 ML BAG IVPB SCH (10:02)
[2017-12-20] MEDS: MethylPREDNISolone 40 mg Vial IV SCH ×2 (10:02→21:01)
[2017-12-20] MEDS: Verapamil 240 mg ER Tab PO SCH (10:03)
--- NOTE | 2017-12-20 15:09 | PN ---
DATE: 12/20/2017 SUBJECTIVE: The patient is 82 year old, seen and examined, sitting in chair, seems to be comfortable. She states she feels a lot better. PHYSICAL EXAMINATION: VITAL SIGNS: She is afebrile, pulse 87, respirations 18, blood pressure 143/66. LUNGS: Bilateral good airflow. Few expiratory rhonchi. HEART: S1 and S2 audible. ABDOMEN: Soft, nontender. No rebound, no guarding. NEUROLOGIC: She is awake, alert, oriented, able to communicate. LABORATORY EXAM: There is no new lab. However, CT scan of the chest shows increased size of right upper lobe lung mass, stable appearance of paratracheal adenopathy. ASSESSMENT: 1. Chronic obstructive pulmonary disease exacerbation. 2. Right upper lung mass. 3. Deconditioning and difficulty walking. 4. Asthmatic bronchitis. 5. Hypertension. 6. Hyperlipidemia. 7. Seizure disorder. PLAN: We will continue the patient on IV steroid, nebulizer treatment, encourage physical therapy. We will reevaluate the patient in a.m. Rosana Palomino MD
[2017-12-21] MEDS: Albuterol-Ipratrop 3 mg / 0.5 (3 ml) UD IH SCH ×4 (01:13→20:19)
[2017-12-21] MEDS: Levothyroxine 25 MCG TAB PO SCH (05:57)
[2017-12-21] MEDS: Pantoprazole 40 mg EC Tab PO SCH (05:57)
[2017-12-21] MEDS: levoFLOXacin 500 mg in D5W 500 MG/100 ML BAG IVPB SCH (10:18)
[2017-12-21] MEDS: MethylPREDNISolone 40 mg Vial IV SCH ×2 (10:18→21:17)
[2017-12-21] MEDS: Verapamil 240 mg ER Tab PO SCH (10:19)
--- NOTE | 2017-12-21 23:57 | PN ---
DATE: 12/21/2017 HISTORY OF PRESENT ILLNESS: Ms. Benito is an 82-year-old female admitted with shortness of breath. She has history of lung cancer, right upper lobe, treated with radiation last year. She has increasing mass now. Shortness of breath has decreased during hospitalization with antibiotic and bronchodilators. PAST MEDICAL HISTORY: 1. Lung cancer diagnosed in 2016. Progression of disease now. 2. COPD. 3. Hypothyroidism. 4. Hypertension. ALLERGIES: TO CODEINE. PAST SURGICAL HISTORY: None. HOME MEDICATION: Omeprazole, verapamil, losartan, levothyroxine, isosorbide, atorvastatin and aspirin 81 mg daily. SOCIAL HISTORY: Nonsmoker. No history of alcohol abuse. PHYSICAL EXAMINATION GENERAL: Comfortable in bed, in no acute distress. Mild shortness of breath. VITAL SIGNS: Respiratory rate 20 per minute, blood pressure 150/70, afebrile, temperature 98,7, heart rate 80 per minute. HEENT: Pallor positive. NECK: No lymphadenopathy. CHEST: Air entry present and equal bilaterally. No added sounds. CARDIOVASCULAR: S1 and S2 normal. No murmur. No gallop. ABDOMEN: Soft, nontender. No hepatosplenomegaly. EXTREMITIES: 1+ edema. CAT scan, right upper lobe mass, 4 cm. ASSESSMENT AND PLAN: 1. Right upper lobe mass, progression of disease, lung cancer. 2. Chronic obstructive pulmonary disease exacerbation. 3. Hypertension. 4. Hypothyroidism. PLAN: We will continue bronchodilators, albuterol every 6 hours scheduled and p.r.n., Lipitor 20 mg daily, hydrochlorothiazide 25 mg daily, Imdur 30 mg daily. Continue Keppra 500 mg p.o. b.i.d., Levaquin 500 IV daily, Cozaar 100 mg daily, Synthroid to continue 25 mcg daily. Also, verapamil 240 mg p.o. daily. Bedside physical therapy. Encouraged ambulation. Maine Alcaraz MD
[2017-12-22] MEDS: Albuterol-Ipratrop 3 mg / 0.5 (3 ml) UD IH SCH ×4 (02:16→19:39)
[2017-12-22] MEDS: Levothyroxine 25 MCG TAB PO SCH (05:29)
[2017-12-22] MEDS: Pantoprazole 40 mg EC Tab PO SCH (05:29)
[2017-12-22] MEDS: levoFLOXacin 500 mg in D5W 500 MG/100 ML BAG IVPB SCH (10:05)
[2017-12-22] MEDS: MethylPREDNISolone 40 mg Vial IV SCH ×2 (10:05→22:08)
[2017-12-22] MEDS: Verapamil 240 mg ER Tab PO SCH (10:06)
[2017-12-22 12:00] LABS: HEMOGLOBIN 11.6 g/dL (12.0-16.0); MEAN CELL VOLUME 90.1 fl (80.0-105.0); MEAN CORPUSCULAR HEMOGLOBIN 27.3 pg (25.0-35.0); MEAN CORPUSCULAR HGB CONC 30.3 g/dl (31.0-37.0); MEAN PLATELET VOLUME 9.8 fl (7.0-11.0); RBC 4.25 10^6/uL (3.5-6.1); RED CELL DISTRIBUTION WIDTH 15.8 % (11.5-14.5); WHITE BLOOD COUNT 13.3 10^3/ul (4.5-11.0)
[2017-12-22 12:13] LABS: ALB/GLOB RATIO 1.2 (1.1-1.8); ALBUMIN 3.7 g/dL (3.0-4.8); ALT/SGPT 27 U/L (7-56); AST/SGOT 24 U/L (14-36); BLOOD UREA NITROGEN 27 mg/dL (7-21); CALCIUM 9.7 mg/dL (8.4-10.5); GFR AFRICAN-AMERICAN > 60; GFR NON-AFRICAN AMERICAN > 60
--- NOTE | 2017-12-22 14:17 | PN ---
DATE: 12/22/2017 SUBJECTIVE: The patient is 82 years old, seen and examined, sitting in chair, seems to be comfortable, get short of breath on walking, still has scanty cough and shortness of breath. PHYSICAL EXAMINATION: VITAL SIGNS: She is afebrile, pulse 77, respirations 18, blood pressure 147/71. LUNGS: Bilateral diffuse and decreased breath sound. HEART: S1 and S2 audible. ABDOMEN: Soft, nontender, no rebound, no guarding. NEUROLOGICAL: She is awake, alert, oriented, communicative. LABORATORY DATA: WBC 13.3, hemoglobin 11.6, hematocrit 38.3, platelets 254. Chemistry: Sodium 141, potassium 3.9, chloride 92, CO2 of 14, BUN 27, creatinine 0.8, blood sugar 127. ASSESSMENT AND PLAN: 1. Chronic obstructive pulmonary disease exacerbation. 2. History of cancer of lung with right upper lung mass. 3. Hypertension. 4. Hyperlipidemia. 5. History of heavy smoking in the past. 6. History of coronary artery disease. PLAN: The patient is deconditioned. Given her age and comorbidities, she would benefit from physical therapy. We will request for TCU evaluation. If accepted, she can be transferred to TCU. I will cut down her steroids, continue her on current medications. Rosana Palomino MD
[2017-12-23] MEDS: Albuterol-Ipratrop 3 mg / 0.5 (3 ml) UD IH SCH ×4 (01:29→22:33)
[2017-12-23] MEDS: Pantoprazole 40 mg EC Tab PO SCH (05:54)
[2017-12-23] MEDS: Levothyroxine 25 MCG TAB PO SCH (05:54)
[2017-12-23] MEDS: MethylPREDNISolone 40 mg Vial IV SCH ×2 (10:43→21:43)
[2017-12-23] MEDS: levoFLOXacin 500 mg in D5W 500 MG/100 ML BAG IVPB SCH (10:44)
[2017-12-23] MEDS: Verapamil 240 mg ER Tab PO SCH (10:44)
--- NOTE | 2017-12-23 13:53 | PN ---
DATE: 12/23/2017 SUBJECTIVE: The patient is 82 years old, seen and examined, sitting in chair, states she feels better than before. Still gets short of breath on ambulating. PHYSICAL EXAMINATION: VITAL SIGNS: She is afebrile. Pulse 71, respirations 20, blood pressure 135/60. LUNGS: Bilateral good airflow. Decreased at bases. Few soft crackles in right upper lung area. HEART: S1 and S2 audible. ABDOMEN: Soft, nontender. No rebound, no guarding. NEUROLOGICAL: She is awake, alert, oriented, communicative. ASSESSMENT: 1. Chronic obstructive pulmonary disease exacerbation, 2. Right upper lung mass, status post radiation. 3. Hypertension. 4. Hyperlipidemia. PLAN: We will continue the patient on verapamil. She is on losartan. She is getting nebulizer treatment. We will continue her on isosorbide. She is also on Keppra for her seizure disorder. So, plan is the patient will be evaluated by TCU, accepted can be transferred to TCU, otherwise we will taper down her steroid and make discharge plans. Rosana Palomino MD
[2017-12-23 22:03] VITALS: O2SAT 96
[2017-12-24] MEDS: Albuterol-Ipratrop 3 mg / 0.5 (3 ml) UD IH SCH ×3 (02:53→13:29)
[2017-12-24] MEDS: Levothyroxine 25 MCG TAB PO SCH (06:22)
[2017-12-24] MEDS: Pantoprazole 40 mg EC Tab PO SCH (06:22)
[2017-12-24 08:38] VITALS: BP 141/65; PULSE 72; RESP 18; TEMP 98.3
[2017-12-24] MEDS: MethylPREDNISolone 40 mg Vial IV SCH (10:17)
[2017-12-24] MEDS: levoFLOXacin 500 mg in D5W 500 MG/100 ML BAG IVPB SCH (10:19)
[2017-12-24] MEDS: Verapamil 240 mg ER Tab PO SCH (10:23)
--- NOTE | 2017-12-25 11:15 | DS ---
HISTORY OF PRESENT ILLNESS: The patient is an 82-year-old, seen and examined. She states she feels lot better. She was admitted because of cough, congestion, shortness of breath, has been on steroid, nebulizer treatment with significant improvement. She is ambulating to the bathroom without getting hypoxic. Patient does admit that she has oxygen and nebulizer machine at home. PHYSICAL EXAMINATION: GENERAL: On examination today, she is awake, alert, oriented, communicative. VITAL SIGNS: The patient is afebrile, pulse 72, respirations 18, blood pressure 141/65. LUNGS: Bilateral good airflow. No rhonchi or crackle. HEART: S1, S2 audible. No murmur. ABDOMEN: Soft, nontender. No rebound. No guarding. NEUROLOGIC: She is awake, alert, oriented, communicative. LABORATORY EXAM: Blood sugar is 127. ASSESSMENT: 1. Right upper lung mass, status post radiation therapy almost a year ago. 2. Chronic obstructive pulmonary disease exacerbation. 3. Deconditioning, difficulty walking. 4. Hypertension. 5. Hypothyroidism. 6. Hyperlipidemia. PLAN: Patient will be discharged home. We will give her tapering dose of steroid. We will give her 3 more days of antibiotic and she will follow up with PMD as an outpatient. Rosana Palomino MD
== END 2017-12-24 19:47 | disposition home or self-care (01) | DRG 191 ==
LOC: ED 19:07 → ERH 21:23 → 2RNO 23:46 → OBSVTOIN 12-19 13:13 → 5RNO 12-20 00:47
PROVIDERS: ADMIT Internal Medicine; ATTEND Internal Medicine
DX: J44.1 Chronic obstructive pulmonary disease with (acute) exacerbation (principal); C34.11 Malignant neoplasm of upper lobe, right bronchus or lung; E03.9 Hypothyroidism, unspecified; I10 Essential (primary) hypertension; E78.5 Hyperlipidemia, unspecified; R26.2 Difficulty in walking, not elsewhere classified; G40.909 Epilepsy, unspecified, not intractable, without status epilepticus; I25.10 Atherosclerotic heart disease of native coronary artery without angina pectoris; Z87.891 Personal history of nicotine dependence; Z79.82 Long term (current) use of aspirin; Z88.5 Allergy status to narcotic agent

== ENCOUNTER 2018-03-01 15:59 | Inpatient (IN) | payer MEDICARE, OTHER ==
[2018-03-01 16:11] VITALS: BMI 25.7
--- NOTE | 2018-03-01 16:19 | ED PDOC ---
Arrival/HPI - General Chief Complaint: Back Pain Time Seen by Provider: 03/01/18 16:16 Historian: Patient - History of Present Illness Narrative History of Present Illness (Text): 03/01/18 16:17 82 y/o female, whose PMH includes hypertension, hypercholesterolemia, lung cancer stage 4 (treated with radiation refused chemo), and COPD, who presents to the emergency department complaining of left lower back pain since several days. Patient reports she has been unable to ambulate due to worsening pain in the last few days. She notes taking Aleve, with minor relief. Patient denies fall, trauma, chest pain, shortness of breath, headache, fever, chills, cough, bowel or bladder incontinence/retention, saddle anesthesia, paresthesias, focal weakness, sensory deficit, gait dysfunction, hematuria or dysuria. No radiation of pain into lower extremities. Time/Duration: < week Symptom Onset: Gradual Symptom Course: Worsening Activities at Onset: Rest Context: Home Past Medical History - Provider Review Nursing Documentation Reviewed: Yes - Infectious Disease Hx of Infectious Diseases: None - Reproductive Menopause: No - Cardiac Hx Cardiac Disorders: Yes (high cholesterol) Hx Hypertension: Yes - Pulmonary Hx Chronic Obstructive Pulmonary Disease (COPD): Yes - Neurological Hx Neurological Disorder: No - HEENT Hx Cataracts: Yes (Removed) - Renal Hx Renal Disorder: No - Endocrine/Metabolic Hx Hypothyroidism: Yes - Hematological/Oncological Hx Cancer: Yes (Lung) - Integumentary Hx Dermatological Disorder: No - Musculoskeletal/Rheumatological Hx Falls: No Hx Unsteady Gait: Yes (uses walker) - Gastrointestinal Hx Gastrointestinal Disorders: No - Genitourinary/Gynecological Hx Genitourinary Disorders: No - Psychiatric Hx Anxiety: Yes Hx Substance Use: No - Surgical History Hx Amputation: No Hx Appendectomy: No Hx Cholecystectomy: No Hx Gastric Bypass Surgery: No Hx Hysterectomy: No Hx Inguinal Hernia Repair: No Hx Joint Replacement: No Hx Kidney Transplant: No Hx Liver Transplant: No Hx Mastectomy: No Hx Musculoskeletal Surgery: No Hx Open Heart Surgery: No Hx Orthopedic Surgery: No Hx Splenectomy: No Hx Valve Replacement: No Family/Social History - Physician Review Nursing Documentation Reviewed: Yes Family/Social History: Unknown Family HX Smoking Status: Former Smoker Hx Alcohol Use: No Hx Substance Use: No Allergies/Home Meds Allergies/Adverse Reactions: Allergies codeine Allergy (Verified 03/01/18 16:11) ANAPHYLAXIS Home Medications: Home Meds Medication Instructions Recorded Confirmed Aspirin [Ecotrin] 81 mg PO DAILY 09/22/17 12/18/17 Atorvastatin [Lipitor] 20 mg PO DAILY 09/22/17 12/18/17 Isosorbide Mononitrate [Isosorbide 30 mg PO DAILY 09/22/17 12/18/17 Mononitrate ER] Levetiracetam [Roweepra] 500 mg PO BID 09/22/17 12/18/17 Levothyroxine [Synthroid] 25 mcg PO DAILY 09/22/17 12/18/17 Losartan/Hydrochlorothiazide 100 tab PO DAILY 09/22/17 12/18/17 [Losartan-Hctz 100-25 mg Tab] Umeclidinium Brm/Vilanterol Tr 62.5 puff PO DAILY 09/22/17 12/18/17 [Anoro Ellipta 62.5-25 Mcg INH] Verapamil [Calan SR Tab] 240 mg PO DAILY 09/22/17 12/18/17 Review of Systems - Review of Systems Constitutional: absent: Fevers ENT: absent: Sinus Congestion Respiratory: absent: SOB Cardiovascular: absent: Chest Pain Gastrointestinal: absent: Abdominal Pain Genitourinary Female: absent: Dysuria Musculoskeletal: Back Pain Skin: absent: Rash Neurological: absent: Headache, Focal Weakness Physical Exam Vital Signs Reviewed: Yes Vital Signs Temp Pulse Resp BP Pulse Ox 03/01/18 19:26 85 18 132/66 100 03/01/18 16:48 80 18 133/64 100 03/01/18 16:07 98.5 F 99 H 22 105/67 37 L Temperature: Afebrile Blood Pressure: Normal Pulse: Tachycardic Respiratory Rate: Normal Appearance: Positive for: Well-Appearing, Non-Toxic, Comfortable Pain Distress: None Mental Status: Positive for: Alert and Oriented X 3 - Systems Exam Head: Present: Atraumatic, Normocephalic Pupils: Present: PERRL Extroacular Muscles: Present: EOMI Conjunctiva: Present: Normal Respiratory/Chest: Present: Respiratory Distress, Wheezes. No: Clear to Auscultation, Good Air Exchange, Accessory Muscle Use, Rales, Retracting, Rhonchi Cardiovascular: Present: Regular Rate and Rhythm, Normal S1, S2. No: Murmurs Abdomen: Present: Tenderness (pelivc tenderness), Normal Bowel Sounds. No: Distention, Peritoneal Signs, Rebound, Guarding Back: Present: Paraspinal Tenderness (lower back and pelvic tenderness). No: CVA Tenderness, Midline Tenderness, Pain with Leg Raise Lower Extremity: Present: Normal Inspection, NORMAL PULSES, Normal ROM, Neurovascularly Intact, Capillary Refill < 2 s. No: Edema, Cyanosis, Emma's Sign, Tenderness, Swelling, Erythema, Deformity Neurological: Present: GCS=15, CN II-XII Intact, Speech Normal, Motor Func Grossly Intact, Normal Sensory Function, Normal Cerebellar Funct Skin: Present: Warm, Dry, Normal Color. No: Rashes Psychiatric: Present: Alert, Oriented x 3, Normal Insight, Normal Concentration Medical Decision Making ED Course and Treatment: 03/01/18 Impression: 82 y/o female with lower back and pelvic tenderness and bilateral wheezing with respiratory distress complaining of lower back pain Plan: -- CT abdomen and Pelvis -- Lumbar spine CT -- Duoneb and Morphine -- Reassess and disposition Progress Notes: 03/01/18 20:05 CT Lumbar Spine: FINDINGS: Vertebrae: Discs/spinal canal/neural foramina: There is a large lytic lesion with soft tissue mass noted within the L5 vertebral body, strongly suspicious for metastasis and it measures 2.8 cm. It extends to the spinal canal and causing impression on the sac and there is moderate central canal stenosis. There is neural foraminal narrowing noted on the left due to this. At L2-L3 level , there is disc bulge with left foraminal protrusion noted. At L3-L4 level , diffuse disc bulge associated with the soft tissue mass and lytic lesion , there is significant neuroforaminal narrowing on the left The mass is extending posteriorly into the spinal canal causing significant narrowing of the spinal canal. At L4-L5 level disc bulge is with mild to moderate central canal stenosis and significant neural foraminal narrowing on the left. At L5 S1 level disc bulge is noted. Soft tissues: Unremarkable. Vasculature: Significant atherosclerotic changes of the aorta. Pleural space: Small right pleural effusion. Other findings: Moderate hiatal hernia. IMPRESSION: There is a large lytic lesion with soft tissue mass noted within the L5 vertebral body, strongly suspicious for metastasis and it measures 2.8 cm. It extends to the spinal canal and causing impression on the sac and there is moderate central canal stenosis. There is neural foraminal narrowing noted on the left due to this. CT Abdomen and pelvis: FINDINGS: Limitations: Evaluation is limited due to lack of IV contrast. Lung bases: Unremarkable. No mass. No consolidation. Pleural space: Right small pleural effusion and left minimal effusion. Mediastinum: Moderate hiatal hernia. ABDOMEN: Liver: The liver is heterogenous in appearance. Gallbladder and bile ducts: Unremarkable. No calcified stones. No ductal dilation. Pancreas: Pancreas evaluation is limited. No ductal dilation. Spleen: Unremarkable. No splenomegaly. Adrenals: Unremarkable. No mass. Kidneys and ureters: Probable cyst in the right kidney. No obstructing stones. No hydronephrosis. Stomach and bowel: Bowel evaluation is limited due to lack of distention. No mucosal thickening. PELVIS: Appendix: No findings to suggest acute appendicitis. Bladder: Unremarkable. No stones. Reproductive: Unremarkable as visualized. ABDOMEN and PELVIS: Intraperitoneal space: Unremarkable. No free air. No significant fluid collection. Bones/joints: L4 large lytic lesion with large soft tissue mass extending to the spinal canal and left neural forearm at this level. The findings are strongly suspicious for metastasis or multiple myeloma. Further evaluation is recommended. No acute fracture. No dislocation. Soft tissues: Unremarkable. Vasculature: Atherosclerotic changes of the aorta. Significant atherosclerotic changes of the aorta. No abdominal aortic aneurysm. Lymph nodes: There is a borderline retrocrural lymph node. IMPRESSION: 1. L4 large lytic lesion with large soft tissue mass extending to the spinal canal and left neural forearm at this level. The findings are strongly suspicious for metastasis or multiple myeloma. Further evaluation is recommended. 2. Right small pleural effusion and left minimal effusion. 3. There is a borderline retrocrural lymph node. 03/01/18 20:20 Patient has hyperflexia and new metastasis to lumbar spine. patient will be admitted for neurosurgical evaluation. to r/out cauda equina spoke with Dr. Lin of [facility] @8:43 pm, recommends MRI with contrast will seee in consult 03/01/18 20:41 - RAD Interpretation Radiology Orders: 03/01/18 16:33 ABD & PELVIS W/O PO OR IV CONT [CT] Stat LUMBAR SPINE W/O CONTRAST [CT] Stat - Medication Orders Current Medication Orders: Discontinued Medications Albuterol/Ipratropium (Duoneb 3 Mg/0.5 Mg (3 Ml) Ud) 3 ml IH STAT STA Stop: 03/01/18 16:34 Last Admin: 03/01/18 16:46 Dose: 3 ml Morphine Sulfate (Morphine) 4 mg IM STAT STA Stop: 03/01/18 16:34 Last Admin: 03/01/18 16:46 Dose: 4 mg MAR Pain Assessment Document 03/01/18 16:46 GMD (Rec: 03/01/18 16:47 GMD [id number]) Pain Reassessment Is this a pain reassessment? No Presence of Pain Presence of Pain Yes Location Left, Right or Bilateral Left Upper or Lower Lower Pain Location Body Site Back IM Administration Charges Document 03/01/18 16:46 GMD (Rec: 03/01/18 16:47 GMD [id number]) Injection Site MAR Injection Site Left Deltoid Charges for Administration # of IM Administrations 1 - Scribe Statement The provider has reviewed the documentation as recorded by the Scribe Betsy Hardy Provider Scribe Attestation: All medical record entries made by the Scribe were at my direction and personally dictated by me. I have reviewed the chart and agree that the record accurately reflects my personal performance of the history, physical exam, medical decision making, and the department course for this patient. I have also personally directed, reviewed, and agree with the discharge instructions and disposition. Disposition/Present on Arrival - Present on Arrival Any Indicators Present on Arrival: No History of DVT/PE: No History of Uncontrolled Diabetes: No Urinary Catheter: No History of Decub. Ulcer: No History Surgical Site Infection Following: None - Disposition Have Diagnosis and Disposition been Completed?: Yes Diagnosis: Back pain Disposition: HOME/ ROUTINE Patient Plan: Discharge Patient Problems: Current Active Problems Problem Status Onset Back pain Acute Condition: IMPROVED Prescriptions: Tramadol HCl/Acetaminophen [Tramadol-Acetaminophn 37.5-325] 1 each PO Q6 PRN # 20 tablet PRN Reason: Pain, Moderate (4-7) Referrals: Monique Madrid, [Primary Care Provider] - Follow up with primary Forms: F[employer] (Persian)
[2018-03-01] MEDS ORDERED: Albuterol-Ipratrop 3 mg / 0.5 (3 ml) UD IH STA (16:33)
[2018-03-01] MEDS ORDERED: Morphine 4 mg/ml ISec IM STA (16:33)
[2018-03-01 21:17] LABS: BASO # 0.02 K/mm3 (0.0-2.0); BASO % 0.2 % (0.0-3.0); EOS # 0.2 (0.0-0.7); EOS % 1.9 % (1.5-5.0); GRAN # 7.9 (1.4-6.5); GRAN % 73.4 % (50.0-68.0); HEMOGLOBIN 10.4 g/dL (12.0-16.0); LYMPH # 1.6 (1.2-3.4); MEAN CELL VOLUME 90.5 fl (80.0-105.0); MEAN CORPUSCULAR HEMOGLOBIN 26.8 pg (25.0-35.0); MEAN CORPUSCULAR HGB CONC 29.6 g/dl (31.0-37.0); MEAN PLATELET VOLUME 9.4 fl (7.0-11.0); MONO % 9.5 % (1.0-6.0); RBC 3.88 10^6/uL (3.5-6.1); RED CELL DISTRIBUTION WIDTH 15.2 % (11.5-14.5); WHITE BLOOD COUNT 10.8 10^3/ul (4.5-11.0)
[2018-03-01 21:23] LABS: BLOOD UREA NITROGEN 18 mg/dL (7-21); CALCIUM 10.1 mg/dL (8.4-10.5); GFR AFRICAN-AMERICAN > 60; GFR NON-AFRICAN AMERICAN > 60
[2018-03-01 21:32] LABS: INR 0.98 (0.93-1.08); PARTIAL THROMBOPLASTIN TIME 29.5 Seconds (25.1-36.5); PROTHROMBIN TIME 11.2 SECONDS (9.4-12.5)
--- NOTE | 2018-03-01 22:19 | CP.PCM.PN ---
Subjective - Date & Time of Evaluation Date of Evaluation: 03/01/18 Time of Evaluation: 22:17 - Subjective Subjective: 82 y/o female, lung cancer stage 4 (treated with radiation refused chemo), and COPD, who presents to the emergency department complaining of left lower back pain since several days. Patient reports she has been unable to ambulate due to worsening pain in the last few days. Patient denies bladder incontinence/ retention, saddle anesthesia, paresthesias, focal weakness, sensory deficit, gait dysfunction, hematuria or dysuria. No radiation of pain into lower extremities. CT shows lytic lesion with soft tissue mass L5 extending into canal Will require MRI with contrast for complete diagnosis Suggest Decadron and will present formal recommendations after MRI Objective - Vital Signs/Intake and Output Vital Signs (last 24 hours): Temp Pulse Resp BP Pulse Ox 98.5 F 80 18 126/79 20 L 03/01/18 16:07 03/01/18 21:58 03/01/18 21:58 03/01/18 21:58 03/01/18 21:58 - Labs Labs: PT 11.2 SECONDS (9.4-12.5) 03/01/18 20:43 INR 0.98 (0.93-1.08) 03/01/18 20:43 APTT 29.5 Seconds (25.1-36.5) 03/01/18 20:43
[2018-03-01] MEDS ORDERED: Albuterol-Ipratrop 3 mg / 0.5 (3 ml) UD IH PRN (22:38)
[2018-03-01] MEDS ORDERED: Oxycodone/Acetaminophen 5/325 mg Tab PO PRN (22:38)
[2018-03-01] MEDS ORDERED: Morphine 4 mg/ml ISec IVP PRN (22:53)
[2018-03-01] MEDS: Dexamethasone 4 mg/1 ml IVP SCH (23:20)
[2018-03-02] MEDS: Albuterol-Ipratrop 3 mg / 0.5 (3 ml) UD IH SCH ×4 (01:26→19:49)
[2018-03-02] MEDS: Levothyroxine 25 MCG TAB PO SCH (05:13)
[2018-03-02] MEDS: Pantoprazole 40 mg EC Tab PO SCH (05:43)
--- NOTE | 2018-03-02 10:36 | CT ---
Date of service: 03/01/2018 PROCEDURE: CT Lumbar Spine without contrast HISTORY: Pain COMPARISON: Comparison made with concurrent CT scan of the abdomen and pelvis TECHNIQUE: Contiguous helical/transaxial computed tomography images were obtained of the lumbar spine without the use of intravenous contrast. Coronal and sagittal reformatted images were created and reviewed. Radiation dose: Total exam DLP = 691.23 mGy-cm. This CT exam was performed using one or more of the following dose reduction techniques: Automated exposure control, adjustment of the mA and/or kV according to patient size, and/or use of iterative reconstruction technique. . FINDINGS: VERTEBRAE: Unremarkable. No fracture. Normal alignment. DISCS/SPINAL CANAL/NEURAL FORAMINA: L1-2: Disc space height relatively maintained. No disc herniation or significant disc bulge. . L2-3: Minor disc space narrowing more so along the posterior disc margin. Small broad-based bulge of the posterior annulus is also present of. The disc extends slightly into the proximal inferior borders of both exit foramina more so on the left side. Facets are hypertrophic. Central canal appears adequate. . L3-4: As mentioned above, left lytic lesion in the posterior aspect of the L4 cyst segment encroaches superiorly and presumably compresses the posterior inferior margin of the L3-L4 disc. There is disc space narrowing and suspected concomitant broad-based disc bulge. Facet joints are hypertrophic at this level. Exit foramina narrowed bilaterally. . L4-5: There is a large rounded lytic lesion located in the posterior aspect of the L4 vertebral body segment which has broken through the posterior cortex and extends into the ventral surface of the spinal canal and apparently results in fairly significant compression of the thecal sac and intrathecal nerve roots at this level. Findings likely represent a metastatic or possibly myelomatous deposit however clinical correlation with history recommended. Note that this lytic lesion extends superiorly and presumably encroaches and compresses the posterior inferior half of the L4 L3-L4 disc. . There is also mild disc space narrowing more so along the posterior disc margin at the L4-L5 level with asymmetric broad-based disc bulge larger on the left than right. Facets are hypertrophic and flavum are also buckled. There is resultant bilateral lateral recess and central canal stenosis. Proximal exit foramina appear stenotic bilaterally L5-S1: Mild posterior disc space narrowing with broad-based bulge of the posterior annulus that extends into the proximal inferior margins of both exit foramina. The facets are significantly hypertrophic left greater than right. There is mild compression of the ventral surface of thecal sac and mild bilateral lateral recess narrowing more so on the left side. Central canal is marginal to adequate. Exit foramina are narrowed on the left and marginal to mildly narrowed on the right. . PARASPINAL SOFT TISSUES: As above OTHER FINDINGS: Bilateral pleural effusions right larger than left. Moderate size hiatal hernia. IMPRESSION: There is a large lytic lesion within the posterior aspect of the L4 segment which broken through the posterior cortex extends into the ventral surface of the spinal canal. The lesion also results in apparent significant compression of the thecal sac though follow-up MRI at would be helpful to further delineate the posterior borders of this lesion. Findings are of uncertain etiology though may represent a large metastatic or myelomatous deposit. Clinical correlation recommended. Note that preliminary report provided by overnight radiology service.
--- NOTE | 2018-03-02 10:39 | CON ---
DATE: 03/02/2018 PULMONARY CONSULTATION HISTORY OF PRESENT ILLNESS: Julee Gallardo is an 82-year-old patient with chronic obstructive pulmonary disease, hypoxemia and stage IV carcinoma of the lung. She had been treated with radiation in the past, refusing chemotherapy. The patient is not able to give a very good history. She does not remember how she came here or who her primary physician is. She states that she may have see me in the distant past. The patient's chart states that she has been unable to ambulate due to pain in the lower extremities and lower back. She is here for neurologic workup. She states that she has no real shortness of breath, but that she uses oxygen at home. She is not clear, however, whether she needs inhaled bronchodilator. She has had this problem for 1-2 years, the duration is unclear to her. At this time, the patient has no acute respiratory problems, but there is no followup according to the patient. PAST MEDICAL HISTORY: The past history has been reviewed. She has COPD as described above, status post cataract surgery, hypothyroidism, lung cancer, problems with her gait, severe anxiety. Past history also includes radiation therapy to the chest. FAMILY HISTORY: Coronary artery disease. No other history noted. SOCIAL HISTORY: Former smoker, not in many years. No illicit drugs. No suicidal ideation. ALLERGIES: CODEINE AND OPIATES, HISTORY OF ANAPHYLAXIS REPORTED. HOME MEDICATIONS: Include Lipitor, Ecotrin, isosorbide, Synthroid, losartan, Anoro and verapamil. REVIEW OF SYSTEMS: Difficult to obtain because of the patient's inability to remember answers. I have reviewed her chart, nothing appears to be different from what I gleaned from the nurse and the patient. I will discuss with family later when they are at the bedside. All other systems negative. PHYSICAL EXAMINATION: GENERAL: The patient is sitting in bed comfortable, in no acute distress. VITAL SIGNS: Stable. She remains afebrile with a pulse of 80, respiratory rate 16-18, blood pressure 130/70, pulse ox 100% on supplemental oxygen. HEENT: Normocephalic, atraumatic. Eyes: PERRLA. EOMs full. Conjunctivae pink. NECK: Supple. No jugular venous distention. No bruit. No mass. No thyromegaly. HEART: Regular rhythm. S1, S2 without murmur, gallop or rub. CHEST: Global decrease in breath sounds. Wheezing is noted. There are no signs of acute respiratory insufficiency. ABDOMEN: Soft. Bowel sounds normoactive without masses, guarding or rebound. EXTREMITIES: Reveal no clubbing, cyanosis or edema. There is no Homans' sign. NEUROLOGIC: Will defer to Neurosurgery. The patient is awake and alert, oriented. No focality is seen by my examination. SKIN: Warm and dry. No rash or excoriation. PSYCHIATRIC: Awake and alert, oriented possibly. Unable to answer questions. Poor memory. LABORATORY STUDIES: Available. A chest x-ray was not done. EKG not done. Blood works have been reviewed. These include a hemoglobin of 10.4, white count of 10.8, PT of 11.2, INR 0.98. Chemistries: Chloride 93, carbon dioxide 41, random blood sugar 117. Full SMA 23 not yet completed. IMPRESSION: 1. Chronic obstructive pulmonary disease. 2. Stage IV lung carcinoma. 3. Lytic lesions noted in L5 vertebral body, suspicious for metastasis. PLAN: Chest x-ray has been ordered. The patient will be put on bronchodilators with inhaled corticosteroids for the presence of wheezing on examination. Blood gas has been ordered as well. We will evaluate in case the patient needs further surgical intervention. Close evaluation is in order. We will see what can be done. The patient states that she does not want significant further intervention. She knows she has stage IV cancer and bad COPD and does not really want heroic measures done. I will defer to the other doctors on this case to further evaluate and treat accordingly. Ventura Johnson MD ITA
--- NOTE | 2018-03-02 10:52 | HP ---
HISTORY OF PRESENT ILLNESS: Patient is 82 years old, known to me from previous admission, came to emergency room because of lower back pain. Has been increasingly debilitating. She was unable to walk around. She does have excruciating pain for almost a week. Has been taking Aleve with no significant relief. Does complain of shortness of breath. No weakness or numbness. No urinary retention, no constipation. No recent fall or trauma. PAST MEDICAL HISTORY: Significant for: 1. Hypertension. 2. COPD. 3. History of CA lung that was diagnosed in 2016. Patient was given radiation at that point. Patient refused to take anything or therapy. 4. Hypothyroidism. ALLERGIES: SHE IS ALLERGIC CODEINE. SOCIAL HISTORY: History of smoking in the remote past. She lives with her daughter. MEDICATIONS AT HOME: She is on Lipitor 20 mg daily, nebulizer treatment. She is on Keppra 500 twice a day, verapamil 240 daily, losartan 100 mg daily, levothyroxine 25 mcg daily, isosorbide 30 mg daily, aspirin 81 daily. REVIEW OF SYSTEMS: Significant for lower back pain and increasing generalized weakness. PHYSICAL EXAMINATION: GENERAL: She is awake, alert, oriented, mild shortness of breath. VITAL SIGNS: She is afebrile, pulse 80, respirations 22, blood pressure 105/67. LUNGS: Bilateral fair airflow. Anteriorly . She has decreased breath sounds at the right base. HEART: S1, S2 audible. ABDOMEN: Soft, nontender. No rebound. No guarding. NEUROLOGIC: Patient is awake, alert, oriented, communicative. LABORATORY DATA: WBC 10.8, hemoglobin 10.4, hematocrit 35.1, platelet of 324. PT 11.2, INR 0.98. Chemistry: Sodium 141, potassium 4.5, chloride 93, CO2 of 41, BUN 18, creatinine 0.7, blood sugar of 117. She has CT scan of the lumbar spine done that shows lytic lesion with soft tissue mass in the lumbar 5 extending into the canal. ASSESSMENT: 1. Intractable lower back pain secondary to lytic lesion from the lung cancer. 2. Right upper lung mass, diagnosed in 2016, status post radiation. 3. Chronic obstructive pulmonary disease. 4. Hypertension. 5. Hypothyroidism. PLAN: Patient will be admitted to the Med-Surg floor. She is on complete bed rest. Started on Decadron. Resume her medications. Started on nebulizer treatment. Neurosurgical evaluation by Dr. Lin has been requested. She will be given analgesics. We will start her on Keppra. We will reevaluate patient in a.m. Rosana Palomino MD
[2018-03-02] MEDS: Verapamil 240 mg ER Tab PO SCH (10:57)
[2018-03-02] MEDS: Dexamethasone 4 mg/1 ml IVP SCH ×2 (10:58→21:50)
--- NOTE | 2018-03-02 11:00 | RAD ---
Date of service: 03/02/2018 HISTORY: pneumonia COMPARISON: 12/18/2017 TECHNIQUE: Chest PA and lateral FINDINGS: LUNGS: The lungs are clear. The infiltrate seen on the previous study has resolved PLEURA: Small pleural effusions. CARDIOVASCULAR: Normal. OSSEOUS STRUCTURES: No significant abnormalities. VISUALIZED UPPER ABDOMEN: Normal. OTHER FINDINGS: None. IMPRESSION: No active disease. Small pleural effusions
--- NOTE | 2018-03-02 11:12 | CT ---
Date of service: 03/01/2018 PROCEDURE: CT Abdomen and Pelvis without intravenous contrast HISTORY: pain left hip COMPARISON: None. TECHNIQUE: Without contrast.. Contrast dose: Radiation dose: Total exam DLP = 433 mGy-cm. This CT exam was performed using one or more of the following dose reduction techniques: Automated exposure control, adjustment of the mA and/or kV according to patient size, and/or use of iterative reconstruction technique. FINDINGS: LOWER THORAX: Small right effusion LIVER: Unremarkable. No gross lesion or ductal dilatation. GALLBLADDER AND BILE DUCTS: Unremarkable. PANCREAS: Unremarkable. No gross lesion or ductal dilatation. SPLEEN: Unremarkable. ADRENALS: Unremarkable. No mass. KIDNEYS AND URETERS: Unremarkable. No hydronephrosis. No solid mass. VASCULATURE: Unremarkable. No aortic aneurysm. BOWEL: Unremarkable. No obstruction. No gross mural thickening. APPENDIX: Unremarkable. Normal appendix. PERITONEUM: Unremarkable. No free fluid. No free air. LYMPH NODES: Unremarkable. No enlarged lymph nodes. BLADDER: Unremarkable. REPRODUCTIVE: Unremarkable. BONES: There is a large lytic lesion in the L4 vertebral body extending into the spinal canal. This was reported separately on the lumbar spine exam OTHER FINDINGS: The report concurs with the preliminary [facility] report IMPRESSION: Large lytic lesion in the L4 vertebral body extending into the spinal canal. No acute intra-abdominal findings.
[2018-03-02 13:49] LABS: ARTERIAL BLOOD GAS HEMOGLOBIN 12.6 g/dL (11.7-17.4); ARTERIAL BLOOD GAS O2 CAPACITY 17.3 mL/dl (16-24); ARTERIAL BLOOD GAS O2 CONTENT 16.1 ML/dl (15-23); ARTERIAL BLOOD GAS O2 SAT 92.9 % (95-98); ARTERIAL BLOOD GAS PCO2 63 mm/Hg (35-45); ARTERIAL BLOOD GAS TCO2 40.9 mmol.L (22-28)
[2018-03-02] MEDS ORDERED: Gadodiamide 287 MG/ML VIAL (15ML) IV ONE (17:30)
--- NOTE | 2018-03-02 17:57 | PN ---
DATE: 03/02/2018 SUBJECTIVE: The patient is 82-year-old who came to Emergency Room for left lower back pain radiating towards her left hip. Pain has been getting progressively increased in the last few days, not relieved by these so she was brought to Emergency Room. The patient does have history of CA of lungs and she had radiation therapy done in [place]. Did not wanted chemotherapy. PHYSICAL EXAMINATION: GENERAL: She is awake and alert, able to communicate. VITAL SIGNS: She is afebrile, pulse 74, respirations 20, blood pressure 124/60. LUNGS: Bilateral fair airflow. No rhonchi or crackle. HEART: S1 and S2 audible. ABDOMEN: Soft, nontender. No rebound, no guarding. NEUROLOGIC: She is awake, alert, oriented, able to communicate. EXTREMITY: Moves all extremity. No focal deficit. She does have a left lower back pain that hurts upon moving. She states while she is resting, she does not have pain. DATA: X-ray of the chest, small pleural effusion. CT scan of the lumbar spine shows bilateral pleural effusion and large lytic lesion within the posterior aspect of L4 segment broken through the posterior cortex extending into the ventral surface of the spinal canal. The also resulted in apparent significant compression of the thecal sac, though followup MRI would be helpful to further delineate the posterior part of the and CT scan of the abdomen and pelvis was also done and that shows large lytic lesion in the L4 vertebral body extending into the spinal canal. ASSESSMENT: 1. 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 2. Chronic obstructive pulmonary disease. 3. Hypertension. 4. Hypothyroidism. PLAN: Discussed with the patient's daughter, they want conservative treatment. I will discuss with Dr. Berto Rai and Dr. Wellington to evaluate her for targeted radiation. We will continue her on her usual medications, analgesics as needed. We will follow up patient in the morning. Rosana Palomino MD
[2018-03-02] MEDS: Budesonide 0.5 mg/2 ml Inhal Susp UD IH SCH (19:49)
[2018-03-03] MEDS: Albuterol-Ipratrop 3 mg / 0.5 (3 ml) UD IH SCH ×4 (02:34→19:51)
[2018-03-03] MEDS: Pantoprazole 40 mg EC Tab PO SCH (05:29)
[2018-03-03] MEDS: Levothyroxine 25 MCG TAB PO SCH (05:29)
[2018-03-03] MEDS: Budesonide 0.5 mg/2 ml Inhal Susp UD IH SCH ×2 (07:15→19:51)
--- NOTE | 2018-03-03 09:39 | MRI ---
Date of service: 03/02/2018 PROCEDURE: MR LUMBAR SPINE WITH AND WITHOUT CONTRAST HISTORY: Lung CA. L4 met. ? neuro involvement COMPARISON: None available. TECHNIQUE: Multiecho multiplanar sequences were performed through the lumbar spine with and without the use of intravenous contrast. FINDINGS: Normal lumbar lordosis. There is a 2.5 x 3 cm mass in the L4 vertebral body which extends into the spinal canal left greater than right. This could be compressing the left L4 nerve root. This does not significantly compress the thecal sac or cauda equina. There is diffuse enhancement of the L4 vertebral body. There is also enhancement of the inferior portion of L3. This is also consistent with contiguous tumor invasion which appears to traverse the disc space as seen on postcontrast images 8 and 9 series 13 Conus medullaris unremarkable at the level of L1 Paraspinal soft tissues are unremarkable. IMPRESSION: There is a 2.5 x 3 cm mass in the L4 vertebral body which extends into the spinal canal left greater than right. This could be compressing the left L4 nerve root. This does not significantly compress the thecal sac or cauda equina. There is diffuse enhancement of the L4 vertebral body. There is also enhancement of the inferior portion of L3. This is also consistent with contiguous tumor invasion which appears to traverse the disc space
--- NOTE | 2018-03-03 10:01 | PN ---
DATE: 03/03/2018 PULMONARY PROGRESS NOTE SUBJECTIVE: The patient is feeling well with no complaints of shortness of breath as we are aware she has stage IV carcinoma of the lung and does not desire further intervention. She feels well, however, without significant symptoms. She is here for back pain, which is being worked up with an MRI. The patient's pulmonary status is stable at this time from a clinical point of view. OBJECTIVE: VITAL SIGNS: Stable. She is afebrile without fever or chills. Respiratory rate is 16, blood pressure 130/70, heart rate 86. Pulse ox 100% on supplemental oxygen. HEENT: Normocephalic, atraumatic. NECK: Supple. No JVD. No lymphadenopathy. HEART: Regular rhythm. S1, S2 without murmur, gallop or rub. CHEST: Global decrease in breath sounds. Wheezing is markedly reduced today. ABDOMEN: Soft. Bowel sounds normoactive without mass, guarding, rebound or organomegaly. EXTREMITIES: Reveal no clubbing, cyanosis, edema. There is no Homans' sign. NEUROLOGIC: Exam shows no mentation changes. She still has back pain. SKIN: Warm and dry. DATA: Chest x-ray was requested yesterday. This has been done in the early afternoon. Review of the chest x-rays were actually clear. There were infiltrates on previous films, which have resolved. There is clearly no evidence of lung cancer. We will need to evaluate older films to determine the previous abnormalities. IMPRESSION: 1. Chronic obstructive pulmonary disease. 2. Status post stage IV lung cancer with a normal looking x-ray (???). 3. Lytic lesions in L5 vertebral body, suspicious for metastasis. PLAN: Continue inhaled bronchodilators and corticosteroids. Await blood gas determination. No evidence of acute shortness of breath. Minimal wheezing at this time. Chest x-ray ironically does not show additional abnormalities. A CT scan of the chest will be ordered to look for additional problems that may be present and not seen on chest x-ray. Ventura Johnson MD
[2018-03-03] MEDS: Dexamethasone 4 mg/1 ml IVP SCH ×2 (10:25→21:47)
[2018-03-03] MEDS: Verapamil 240 mg ER Tab PO SCH (10:26)
--- NOTE | 2018-03-03 10:48 | CT ---
Date of service: 03/03/2018 PROCEDURE: CT Chest without contrast HISTORY: hx of Stage 4 Lung Ca COMPARISON: Contrast-enhanced CT 12/19/2017 TECHNIQUE: Contiguous axial images were obtained through the chest without intravenous contrast enhancement. Sagittal and coronal reconstructions were performed. Radiation dose (DLP): 401 mGy-cm. This CT exam was performed using one or more of the following dose reduction techniques: Automated exposure control, adjustment of the mA and/or kV according to patient size, and/or use of iterative reconstruction technique. FINDINGS: LUNGS: There is a large mass adjacent to the mediastinum in the right upper lobe measuring 3.4 cm wide by 7.3 cm AP x 9.2 cm in height. On the previous study a right superior hilar mass is seen measuring 3.2 cm height by 4.1 cm wide MEDIASTINUM: Unremarkable thoracic aorta. No aneurysm. Normal sized heart. Main pulmonary artery unremarkable. No vascular congestion. Mildly enlarged mediastinal lymph nodes are seen PLEURA: Small right pleural effusion BONES: No fracture. No destructive lesion. UPPER ABDOMEN: Grossly unremarkable. OTHER FINDINGS: None. IMPRESSION: There is a large mass adjacent to the mediastinum in the right upper lobe measuring 3.4 cm wide by 7.3 cm AP x 9.2 cm in height. Increased in size from prior exam
--- NOTE | 2018-03-03 14:54 | PN ---
DATE: 03/03/2018 SUBJECTIVE: The patient is 82 years old, seen and examined. Still has pain in the left buttock area, probably referred pain from her lytic met. Eating and tolerating. No chest pain, no shortness of breath. PHYSICAL EXAMINATION: VITAL SIGNS: She is afebrile, pulse 86, respiration 20, blood pressure 117/59. LUNGS: Bilateral fair airflow. No rhonchi or crackle. HEART: S1 and S2 audible. ABDOMEN: Soft, nontender. No rebound, no guarding. LABORATORY DATA: She had CT scan of the chest done that shows large mass adjacent to the mediastinum in the right upper lobe measuring 3.4 cm, widened 7.3 cm, 9.2 cm in height. An MRI of the lumbar spine shows 3.5 x 3 cm mass in the L4 vertebral body, which extended into the spinal canal, left greater than the right, could be compressing the left L4 nerve root. This does not significantly compress the thecal sac with cauda equina. ASSESSMENT: 1. Right upper lung mass. 2. Carcinoma of the lung, status post radiation therapy. 3. 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 4. Chronic obstructive pulmonary disease. PLAN: Awaiting neurosurgical input. We will continue on dexamethasone in the meantime and continue her on usual medication. Discussed with her daughter, Karla. They are waiting to discuss with Dr. Berto Rai. Rosana Palomino MD
[2018-03-04] MEDS: Albuterol-Ipratrop 3 mg / 0.5 (3 ml) UD IH SCH ×4 (02:04→20:14)
[2018-03-04] MEDS: Levothyroxine 25 MCG TAB PO SCH (05:30)
[2018-03-04] MEDS: Pantoprazole 40 mg EC Tab PO SCH (05:30)
[2018-03-04] MEDS: Budesonide 0.5 mg/2 ml Inhal Susp UD IH SCH ×2 (07:06→20:14)
--- NOTE | 2018-03-04 08:11 | CON ---
DATE: 03/03/2018 REASON FOR CONSULTATION: Lesion, L4 vertebral body. HISTORY OF PRESENT ILLNESS: Patient is a pleasant 82-year-old lady who has been complaining of left buttock pain for several weeks now. She has a history of stage IV lung cancer for which she has received radiation treatments. She refused any type of chemotherapy. The buttock pain does not radiate into her legs. She uses a walker to ambulate, but is ambulatory. She denies any loss of bowel or bladder control. PAST MEDICAL HISTORY: Significant for the lung cancer as already mentioned. She also has a history of hypertension, COPD, and hypothyroidism. MEDICATIONS: Listed on the chart. ALLERGIES: SHE IS ALLERGIC TO CODEINE. PHYSICAL EXAMINATION: NEUROLOGIC: She denies any pain in the back. She is just tender really in the sciatic notch area on the left side. Nothing on the right. She moves both lower extremities fully and actively. Her sensory exam is intact to light touch throughout. She has good motor strength throughout as well. Reflexes are intact and symmetrical. Good distal pulses. No clonus is present. LABORATORY DATA: Her MRI was reviewed and it shows a lesion in the L4 vertebral body. This would appear to be a very slow growing lesion as there is a rim around it within a vertebral body and the posterior cortex of the vertebral body is expanded, but no significant breakthrough, so again this would be indicative of something that is progressing very slowly. It is mildly effacing the thecal sac. It extends a little more towards the left than the right, but again no significant compression. The question is raised about a compressing left L4 root just on the study itself. IMPRESSION: Impression is that of probable metastatic lesion in the L4 vertebral body. However, the patient clinically does not appear to be symptomatic from this. She is complaining of some left buttock pain, but again there is nothing here that I can see that would be directly responsible for pain just in the left buttock. Review of her CAT scan showed significant facet degeneration hypertrophy on the left side at L5-S1. Certainly, this might be giving her some of the issues in her left buttock in terms of referred pain there. Sacroiliac joint and the bone on the left side of that appeared to be okay. If the feeling is that this lesion is most probably a metastatic lesion, then one could consider just doing some radiation treatments. If the nature of this in terms of being what appeared to be a slow growing lesion does not really conform with a metastatic lung lesion, then consideration for a CT-guided biopsy could be given and then plan treatment from there, again of a noninvasive nature. The only way of surgically treating this adequately would be to do a retroperitoneal approach to remove the entire vertebral body, but certainly she does not want anything that invasive given her lung condition, probably would not be able to tolerate it anyway. Thank you for allowing me to participate in the care of your patient and if you have any questions, please do not hesitate to contact me. Erick Dumont MD MTDD
[2018-03-04] MEDS: Verapamil 240 mg ER Tab PO SCH (10:25)
[2018-03-04] MEDS: Dexamethasone 4 mg/1 ml IVP SCH ×2 (10:26→22:22)
--- NOTE | 2018-03-04 14:08 | CP.PCM.CON ---
History of Present Illness - History of Present Illness History of Present Illness: Ms Gallardo is a 82 year old female with lung cancer diagnosed and treated in [place] in 2017 who now has increasing lower back pain from a bone metastases. She presented with a few day history of increasing lower back/left buttock pain. She came to [facility] for further evaluation and management. A CT of the abdomen and pelvis revealed a large lytic lesion in the L4 spine with extension to the canal. CT of the lumbar spine confirmed a large lytic lesion with extension to the ventral surface of the spine. A MRI of the lumbar spine revealed a 2.5 x 3.5cm L4 vertebral body lesion with extension to the canal. There was compression of the left nerve root. There was enhancement of the inferior L3. A CT of the chest revealed a large right upper lobe mass. She was seen by orthopedics who also recommended palliative radiation. She denies any lower extremity Review of Systems - Respiratory Respiratory: Cough, Dyspnea - Musculoskeletal Musculoskeletal: Back Pain Past Patient History - Infectious Disease Hx of Infectious Diseases: None - Past Social History Smoking Status: Former Smoker Alcohol: None Home Situation {Lives}: With Family - CARDIAC Hx Cardiac Disorders: Yes Hx Hypercholesterolemia: Yes Hx Hypertension: Yes - PULMONARY Hx Respiratory Disorders: Yes Hx Chronic Obstructive Pulmonary Disease (COPD): Yes - NEUROLOGICAL Hx Neurological Disorder: Yes Hx Seizures: Yes - HEENT Hx HEENT Problems: Yes Hx Cataracts: Yes (Removed) - RENAL Hx Chronic Kidney Disease: No - ENDOCRINE/METABOLIC Hx Endocrine Disorders: Yes Hx Hypothyroidism: Yes - HEMATOLOGICAL/ONCOLOGICAL Hx Cancer: Yes (h/o early stage lung cancer status post radiation in [place] in 2017) - INTEGUMENTARY Hx Dermatological Problems: No - MUSCULOSKELETAL/RHEUMATOLOGICAL Hx Falls: No - GASTROINTESTINAL Hx Gastrointestinal Disorders: No - GENITOURINARY/GYNECOLOGICAL Hx Genitourinary Disorders: No - PSYCHIATRIC Hx Psychophysiologic Disorder: Yes Hx Anxiety: Yes Hx Substance Use: No - SURGICAL HISTORY Hx Amputation: No Hx Appendectomy: No Hx Cholecystectomy: No Hx Gastric Bypass Surgery: No Hx Hysterectomy: No Hx Joint Replacement: No Hx Kidney Transplant: No Hx Liver Transplant: No Hx Mastectomy: No Hx Musculoskeletal Surgery: No Hx Open Heart Surgery: No Hx Orthopedic Surgery: No Hx Splenectomy: No Hx Valve Replacement: No Meds Allergies/Adverse Reactions: Allergies Allergy/AdvReac Type Severity Reaction Status Date / Time codeine Allergy ANAPHYLAXIS Verified 03/01/18 16:11 - Medications Medications: Current Medications Acetaminophen (Tylenol 325mg Tab) 650 mg PO Q6H PRN PRN Reason: Fever >100.4 F Last Admin: 03/02/18 05:13 Dose: 650 mg Albuterol/Ipratropium (Duoneb 3 Mg/0.5 Mg (3 Ml) Ud) 3 ml IH [id number] [facility] Last Admin: 03/04/18 13:38 Dose: 3 ml Albuterol/Ipratropium (Duoneb 3 Mg/0.5 Mg (3 Ml) Ud) 3 ml IH Q2H PRN PRN Reason: Shortness of Breath Aspirin (Ecotrin) 81 mg PO DAILY [facility] Last Admin: 03/04/18 10:25 Dose: 81 mg Atorvastatin Calcium (Lipitor) 20 mg PO DAILY [facility] Last Admin: 03/04/18 10:25 Dose: 20 mg Budesonide (Pulmicort Respules) 0.5 mg IH BIDRESP [facility] Last Admin: 03/04/18 07:06 Dose: 0.5 mg Dexamethasone (Decadron Inj) 4 mg IVP Q12H [facility] Last Admin: 03/04/18 10:26 Dose: 4 mg Isosorbide Mononitrate (Imdur Er) 30 mg PO DAILY [facility] Last Admin: 03/04/18 10:25 Dose: 30 mg Levetiracetam (Keppra) 500 mg PO BID [facility] Last Admin: 03/04/18 10:25 Dose: 500 mg Levothyroxine Sodium (Synthroid) 25 mcg PO 0600 [facility] Last Admin: 03/04/18 05:30 Dose: 25 mcg Morphine Sulfate (Morphine) 4 mg IVP Q4H PRN PRN Reason: Pain, moderate (4-7) Ondansetron HCl (Zofran Inj) 4 mg IVP Q6H PRN PRN Reason: Nausea/Vomiting Pantoprazole Sodium (Protonix Ec Tab) 40 mg PO 0630 [facility] Last Admin: 03/04/18 05:30 Dose: 40 mg Verapamil HCl (Calan Sr Tab) 240 mg PO DAILY [facility] Last Admin: 03/04/18 10:25 Dose: 240 mg Physical Exam - Head Exam Head Exam: NORMAL INSPECTION - Eye Exam Eye Exam: EOMI - ENT Exam ENT Exam: Mucous Membranes Moist - Respiratory Exam Respiratory Exam: Clear to Auscultation Bilateral - Cardiovascular Exam Cardiovascular Exam: REGULAR RHYTHM - GI/Abdominal Exam GI & Abdominal Exam: Normal Bowel Sounds - Neurological Exam Neurological exam: CN II-XII Intact, Oriented x3 Results - Vital Signs Recent Vital Signs: Last Vital Signs Temp 98.1 F 03/04/18 12:00 Pulse 76 03/04/18 12:00 Resp 20 03/04/18 12:00 BP 115/65 03/04/18 12:00 Pulse Ox 95 03/04/18 12:00 - Labs Result Diagrams: 03/01/18 20:43 03/01/18 20:43 Assessment & Plan - Assessment and Plan (Free Text) Assessment: Ms Gallardo is a 82 year old female with locally advanced lung cancer who now has increasing lower back pain from a L4 bone metastases We would concur that she would benefit from palliative radiation. We spoke to her and jose r about the radiation including the risks and benefits. Informed consent was obtained. We will schedule her for a simulation session tomorrow and begin as soon as possible.
--- NOTE | 2018-03-04 15:32 | PN ---
DATE: 03/04/2018 PULMONARY PROGRESS NOTE SUBJECTIVE: The patient was seen and examined sitting on the edge of the bed. She is not in respiratory distress. She reports shortness of breath only on physical exertion. PHYSICAL EXAMINATION: VITAL SIGNS: Temperature 97.4, pulse 86, respirations 20, pulse oximetry is 98 on nasal cannula, and 95 on room air, blood pressure 140/60. HEAD, EARS, NOSE AND THROAT: Within normal limits. NECK: Supple with no jugular vein distention. CARDIOVASCULAR: S1, S2, no S3. Regular. PULMONARY: Diminished breath sounds at both bases, otherwise clear. ABDOMEN: Soft, nontender, no organomegaly. EXTREMITIES: No pedal edema. SKIN: No acute skin rash. NEUROLOGICAL: Limited at present time. ASSESSMENT: 1. Exacerbation of chronic obstructive pulmonary disease. 2. Status post stage IV lung cancer with normal looking chest x-ray. 3. Lytic lesions in L5 vertebra suspicious for metastasis. PLAN: We will continue inhaler and bronchodilators and corticosteroids. No shortness of breath at rest, only on exertion. Chest x-ray did not reveal any additional abnormalities. We will confirm with Dr. Johnson, who is her Pulmonary, regular as far as plan is concerned, but her condition is stable. Paul Gutierres MD MTDD
--- NOTE | 2018-03-04 22:50 | PN ---
DATE: 03/04/2018 SUBJECTIVE: The patient is 82 years old, seen and examined. Still has left buttock pain, better than before. PHYSICAL EXAMINATION: VITAL SIGNS: She is afebrile, pulse 102, respiration 20, blood pressure 103/59. LUNGS: Bilateral fair airflow. No rhonchi or crackle. HEART: S1 and S2 audible. ABDOMEN: Soft, nontender. No rebound, no guarding. NEUROLOGICAL: The patient is awake, alert, oriented, communicative. EXTREMITIES: Bilateral leg, no edema. She is able to ambulate. No weakness or numbness in the legs. GENITOURINARY: No complaint of urine or bowel retention. ASSESSMENT: 1. Left buttock and left lower back pain. 2. Right upper lung cancer. 3. 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 4. Seizure disorder. 5. Hypertension. 6. Hypothyroidism. PLAN: I will order for left hip x-ray. Dr. Alicia has been requested for positive facet injections. Dr. Wellington also had been consulted for palliative radiation therapy to the site. I will discuss with the patient's daughter. I gave them the number to call me. I will make further recommendations after talking to the family. Rosana Palomino MD
--- NOTE | 2018-03-05 01:34 | CON ---
DATE: 03/04/2018 ONCOLOGY CONSULTATION HISTORY OF PRESENT ILLNESS: This is an 82-year-old woman with known carcinoma of the lung. She was initially treated in [place] about two years ago. She underwent lobectomy and I saw her about six months ago and she had progressive cancer at that time on the x-rays. We checked her for a certain targeted therapies with ALK, KRAS, and BRAF and these all came back negative, EGFR, and the decision was made that she was relatively asymptomatic at that time and we would not give chemotherapy. Patient has been able to stay home until this time. Now, she is admitted for a couple of weeks worth of low mild back pain and she was admitted for this. PHYSICAL EXAMINATION: SKIN: No petechiae, no bruises. HEENT: Anicteric. NODES: Nonpalpable in the axillary, cervical, supraclavicular, inguinal regions. LUNGS: Clear at present. Some tenderness, however, at the lumbar spine. HEART: S1, S2. ABDOMEN: Shows no liver, no spleen. No tenderness. No rebound. No ascites. EXTREMITIES: No edema. [employer]IDENT OF [employer]ALENT MANAGEMENT: No focal finding. Plantars are downward going bilaterally. ASSESSMENT AND PLAN: The patient has about a 9-cm right-sided lung mass that has grown since the last CAT scan a few months ago. She also has L4 metastasis with a lesion growing into it. She was put on Decadron as an IV since admission and she says that she now feels much more comfortable, much less pain, and a burning sensation in the mild lower back. So, patient is responding to it and I spoke with Dr. Wellington, the radiation oncologist and I asked her to see the patient to evaluate for palliative radiation therapy to the L4 region and she will do so today. From my perspective, especially on the Decadron, she is feeling much better. She will be able to receive the radiation therapy as an outpatient and they will be able to take her back and forth and she should stay on the Decadron 4 mg p.o. twice a day until the radiation therapy is completed, which would take about 10 days and then she should be encouraged to see me again as an outpatient. Michael Cortes MD [facility] # [phone]
[2018-03-05] MEDS: Albuterol-Ipratrop 3 mg / 0.5 (3 ml) UD IH SCH ×4 (02:36→19:25)
[2018-03-05] MEDS: Budesonide 0.5 mg/2 ml Inhal Susp UD IH SCH ×2 (07:40→19:25)
--- NOTE | 2018-03-05 07:40 | RAD ---
Date of service: 03/04/2018 PROCEDURE: Pelvis and left hip HISTORY: pain COMPARISON: TECHNIQUE: Three views FINDINGS: There is no fracture or bony abnormality. No significant degenerative changes IMPRESSION: Negative study
[2018-03-05] MEDS: Levothyroxine 25 MCG TAB PO SCH (11:19)
[2018-03-05] MEDS: Pantoprazole 40 mg EC Tab PO SCH (11:21)
[2018-03-05] MEDS: Verapamil 240 mg ER Tab PO SCH (11:21)
--- NOTE | 2018-03-05 13:10 | DS ---
HISTORY OF PRESENT ILLNESS: The patient is 82 years old, seen and examined. She states she has no pain anymore. Eating and tolerating. No nausea or vomiting. No diarrhea. PHYSICAL EXAMINATION: VITAL SIGNS: She is afebrile, pulse 74, respirations 20, blood pressure 135/70. LUNGS: Bilateral fair airflow. No rhonchi or crackle. HEART: S1 and S2 audible. ABDOMEN: Soft. Nontender. No rebound. No guarding. NEUROLOGICAL: She is awake, alert, oriented, communicative. LABORATORY EXAM: There is no new lab available today. However, her x-ray of the abdomen and pelvis is unremarkable. MRI shows mets to L4. ASSESSMENT AND PLAN: History of right upper lung mass, status post radiation treatment therapy. The patient refused chemotherapy. She was offered to have biopsy done for L4 metastasis. She does not want any intervention. She only would accept the radiation treatment, so she was mapped yesterday. She was evaluated by Dr. Wellington. She will get 10 rounds of radiation. The patient is clinically stable at this point. We will continue her on Decadron tapering dose where prescription has been given. She will be discharged either tonight if she has a round or tomorrow morning and she can continue her radiation as outpatient. Rosana Palomino MD
[2018-03-05] MEDS: Dexamethasone 4 mg/1 ml IVP SCH ×2 (13:22→21:45)
--- NOTE | 2018-03-05 19:02 | CON ---
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 MRI showing a lytic lesion of the posterior body of the L4. She can ambulate with very little neurologic deficit. She is being seen by spine surgeon and her stabilization procedure needs to begun. Orthopedically, not much I can do that offer her protection by ambulating with a walker and to maintain her muscle strength in her lower legs and follow her closely to make sure she does not fall and break anything or have another metastatic lesion somewhere. In the meantime, we will just follow her orthopedically to make sure she gets stronger and protects herself from falling, to be followed by a oncologist and a spine surgeon and medical Dr. Rich Alicia. 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 Rich Alicia DO
[2018-03-06] MEDS: Albuterol-Ipratrop 3 mg / 0.5 (3 ml) UD IH SCH ×3 (01:30→13:24)
[2018-03-06] MEDS: Pantoprazole 40 mg EC Tab PO SCH (05:30)
[2018-03-06] MEDS: Levothyroxine 25 MCG TAB PO SCH (05:30)
[2018-03-06] MEDS: Budesonide 0.5 mg/2 ml Inhal Susp UD IH SCH (07:33)
[2018-03-06 08:02] VITALS: BP 153/69; PULSE 71; RESP 20; TEMP 97.6; O2SAT 100
--- NOTE | 2018-03-06 09:58 | PN ---
DATE: 03/06/2018 PULMONARY PROGRESS NOTE SUBJECTIVE: The patient was seen and examined, sitting at the edge of a bed. She is not complaining of shortness of breath at rest. She states that she is short of breath only with physical exertion. PHYSICAL EXAMINATION: VITAL SIGNS: Her temperature is 97.6, pulse 80, respirations 20, pulse oximetry is 100 on nasal cannula, blood pressure 150/69. HEENT: Head normocephalic and atraumatic. NECK: Supple with no jugular vein distentions. No adenopathy. HEART: S1, S2. No S3. Regular. PULMONARY: Diminished breath sounds bilaterally with few expiratory rhonchi. No wheezing. GASTROINTESTINAL: Soft, nontender. No organomegaly. EXTREMITIES: No pedal edema. No cyanosis. NEUROLOGIC: No focal deficits. SKIN: Dry; intact LABORATORY DATA: There is no new laboratory data to review. ASSESSMENT: 1. Chronic obstructive pulmonary disease, improving. 2. Status post stage IV lung cancer. The latest chest x-ray did not reveal obvious disease. 3. Lytic lesion in L5 vertebra. Rule out metastatic disease. PLAN: The patient can be switched to her usual inhalers in preparation to discharge. She feels good. Her breathing is markedly improved and the chest x-ray is clear. There is no pneumonia. We will agree to discharge plans as per attending. Paul Gutierres MD ITA
[2018-03-06] MEDS: Dexamethasone 4 mg/1 ml IVP SCH (10:24)
[2018-03-06] MEDS: Verapamil 240 mg ER Tab PO SCH (10:25)
--- NOTE | 2018-03-07 22:21 | PN ---
DATE: 03/06/2018 HISTORY OF PRESENT ILLNESS: Ms. Gallardo is an 82-year-old female admitted to the hospital with back pain. She was diagnosed with lung cancer two years ago, treated in [place], underwent lobectomy. She has a large left lower lobe mass. She was started on radiation treatment for cord compression, tolerating it well. Today being discharged home. She has refused chemotherapy in the past. She has L4 metastatic lesion, past medical history of hypertension, blood pressure controlled with current medication, history of COPD, she is in mild respiratory distress, hypothyroidism, controlled on current medication. PAST MEDICAL HISTORY: Hypertension, COPD, carcinoma of the lung, hypothyroidism. ALLERGIES: ALLERGY TO CODEINE. SOCIAL HISTORY: Ex-smoker in the past. HOME MEDICATIONS: Lipitor, nebulizer, Keppra, verapamil, levothyroxine, isosorbide. REVIEW OF SYSTEMS: As per HPI. Rest of 12-point review of systems reviewed, negative. PHYSICAL EXAMINATION: GENERAL: Comfortable in chair, mild respiratory distress on oxygen by nasal cannula. HEENT: Pallor positive. NECK: No lymphadenopathy. CHEST: Air entry present, equal and bilateral. No added sounds. CARDIOVASCULAR: S1, S2 normal. No murmur. No gallop. ABDOMEN: Soft, nontender. No hepatosplenomegaly. EXTREMITIES: No edema. SPINE: Nontender. LABORATORY DATA: Reviewed. MEDICATIONS: Reviewed. ASSESSMENT AND PLAN: Stage IV lung cancer, left sided, right lung mass, L4 lesion in the spine, started on radiation. Continue radiation as outpatient to complete 2 weeks of radiation, treatment or chemotherapy will be taken as outpatient with her primary oncologist. Blood pressure controlled on current medication. Hypothyroidism controlled on current medication. Maine Alcaraz MD
== END 2018-03-06 14:39 | disposition home or self-care (01) | DRG 543 ==
LOC: ED 15:59 → ERH 20:44 → 5RNO 21:59
PROVIDERS: ADMIT Internal Medicine; ATTEND Internal Medicine
DX: C79.51 Secondary malignant neoplasm of bone (principal); C34.11 Malignant neoplasm of upper lobe, right bronchus or lung; C34.92 Malignant neoplasm of unspecified part of left bronchus or lung; J44.1 Chronic obstructive pulmonary disease with (acute) exacerbation; I10 Essential (primary) hypertension; G40.909 Epilepsy, unspecified, not intractable, without status epilepticus; M54.17 Radiculopathy, lumbosacral region; R09.02 Hypoxemia; E03.9 Hypothyroidism, unspecified; E78.00 Pure hypercholesterolemia, unspecified; Z79.82 Long term (current) use of aspirin; Z99.81 Dependence on supplemental oxygen; Z87.891 Personal history of nicotine dependence; Z88.5 Allergy status to narcotic agent; Z82.49 Family history of ischemic heart disease and other diseases of the circulatory system; Z92.3 Personal history of irradiation

== ENCOUNTER 2018-03-24 09:33 | Inpatient (IN) | payer MEDICARE, OTHER ==
[2018-03-24 09:35] VITALS: BMI 26.4
--- NOTE | 2018-03-24 09:56 | EDPD ---
HPI Stroke - General Time Seen by Provider: 03/24/18 09:39 Chief Complaint: Altered Mental Status Historian: Patient, Family - History of Present Illness Narrative History of Present Illness (Free Text): 03/24/18 12:38 Patient is an 82 yo female with past medical history of metastatic lung cancer, presents to the Emergency Department with daughter with sudden onset of difficulty speaking and altered mental status. The patient reportedly was in her typical state of health this morning, eating, ambulating at her baseline, when she "suddenly became confused and wouldn't talk". No fall or injury reported. Daughter states that patient appeared slightly more short of breath. No vomiting. No history of fevers. Patient had taken Tramadol for back pain prior to arrival although patient reportedly had taken this medication with no difficulty in the past. Symptoms occurred twenty minutes prior to arrival. rTPA Inclusion/Exclusion - Refusal of Treatment Patient Refused Treatment: Yes - Warning to TPA With Conditions Following Conditions Weighed Against Anticipated Benefit: Yes Condition: Stroke Serevity Too Mild, Rapid Improvement Past Medical History - Infectious Disease Hx of Infectious Diseases: None - Reproductive Menopause: Yes - Cardiac Hx Cardiac Disorders: Yes (high cholesterol) Hx Hypertension: Yes - Pulmonary Hx Chronic Obstructive Pulmonary Disease (COPD): Yes Hx Lung Cancer: Yes - Neurological Hx Neurological Disorder: No - HEENT Hx Cataracts: Yes (Removed) - Renal Hx Renal Disorder: No - Endocrine/Metabolic Hx Hypothyroidism: Yes - Hematological/Oncological Hx Cancer: Yes (Lung) - Integumentary Hx Dermatological Disorder: No - Musculoskeletal/Rheumatological Hx Falls: No Hx Unsteady Gait: Yes (uses walker) - Gastrointestinal Hx Gastrointestinal Disorders: No - Genitourinary/Gynecological Hx Genitourinary Disorders: No - Psychiatric Hx Anxiety: Yes Hx Substance Use: No - Surgical History Hx Amputation: No Hx Appendectomy: No Hx Cholecystectomy: No Hx Gastric Bypass Surgery: No Hx Hysterectomy: No Hx Joint Replacement: No Hx Kidney Transplant: No Hx Liver Transplant: No Hx Mastectomy: No Hx Musculoskeletal Surgery: No Hx Open Heart Surgery: No Hx Orthopedic Surgery: No Hx Splenectomy: No Hx Valve Replacement: No Allergies/Home Meds Allergies/Adverse Reactions: Allergies codeine Allergy (Verified 03/24/18 09:47) ANAPHYLAXIS Home Medications: Home Meds Medication Instructions Recorded Confirmed Aspirin [Ecotrin] 81 mg PO DAILY 09/22/17 03/24/18 Atorvastatin [Lipitor] 20 mg PO DAILY 09/22/17 03/24/18 Isosorbide Mononitrate [Isosorbide 30 mg PO DAILY 09/22/17 03/24/18 Mononitrate ER] Levetiracetam [Roweepra] 500 mg PO BID 09/22/17 03/24/18 Levothyroxine [Synthroid] 25 mcg PO DAILY 09/22/17 03/24/18 Losartan/Hydrochlorothiazide 100 tab PO DAILY 09/22/17 03/24/18 [Losartan-Hctz 100-25 mg Tab] Verapamil [Calan SR Tab] 240 mg PO DAILY 09/22/17 03/24/18 Review of Systems - Review of Systems Constitutional: Fatigue. absent: Fevers Eyes: Other (complains of twitching left eye). absent: Vision Changes Respiratory: SOB Cardiovascular: absent: Chest Pain Gastrointestinal: absent: Abdominal Pain Musculoskeletal: absent: Back Pain Skin: absent: Rash Neurological: Speech Changes. absent: Dizziness ED Stroke Physical Exam Vital Signs Reviewed: Yes Vital Signs Temp Pulse Resp BP Pulse Ox 03/24/18 09:34 98.2 F 100 H 20 137/57 L 95 Temperature: Afebrile Appearance: Positive for: Ill-Appearing Mental Status: Positive for: Confused Finger Stick Blood Glucose: 132 - Systems Exam Head: Present: Atraumatic Pupils: Present: Other (pupils slightly dilated but equal and reactive, no gaze palsy noted) Conjunctiva: No: Injected Mouth: Present: Moist Mucous Membranes Pharnyx: No: ERYTHEMA Nose (Internal): Present: Normal Inspection Neck: Present: Normal Range of Motion. No: Meningeal Signs Respiratory/Chest: Present: Clear to Auscultation. No: Respiratory Distress Cardiovascular: Present: Regular Rate and Rhythm, Murmurs Abdomen: No: Tenderness, Distention Back: No: CVA Tenderness Upper Extremity: No: Cyanosis Lower Extremity: No: Edema, CALF TENDERNESS Neurologic: Present: Other (on initial exam patient is aphasic, will follow commands slowly however, pronator drift noted in extremities) Skin: Present: Warm Psychiatric: Present: Alert Medical Decision Making ED Course and Treatment: 03/24/18 12:44 Patient evaluated immediately upon arrival history supplemented by daughter who is at bedside and witnessed acute change in mental status 20 minutes prior to arrival. Patient is awake and follows commands, will move all extremities slowly although appears to have difficulty speaking. Symptoms acute onset. No hypoxia or respiratory distress noted. No trauma reported. No recent acute illness reported. CODE STROKE called for acute onset of AMS, aphasia. Case and intial exam reviewed with Dr. Radha orlando neurologist and initial Head CT reading reviewed with radiologist, unremarkable. On re-exam upon return from CT she is starting to speak better and at 1200 she is conversant, alert, speaking on phone and near her baseline speech and mental status as per daughter. Patient is NOT a tpa candidate as there is rapid resolution of symptoms. Patient TOOK aspirin PRIOR TO ARRIVAL as per daughter. Will admit for serial neuro exams, patient's PMD requests admission to hospitalist service. Family and patient updated with treatment plan. Limitations of CT reviewed with patient and family. - RAD Interpretation Narrative RAD Interpretations (Text): 03/24/18 12:[address] reviewed by radiologist, shows: No intracranial mass, hemorrhage or evidence of acute infarct. Mild chronic sphenoid sinusitis. Lila left mastoid effusion, nonspecific. The findings this examination were discussed, by telephone, with Dr. Hargrove at 10: 02 a.m. on 03/24/2018 Dr. Garrick Goetz 03/24/18 10:04 Chest X-ray reviewed by radiologist, shows: Small left pleural effusion. Dr. Viv Rojas 03/24/18 10:35 Radiology Orders: 03/24/18 09:52 HEAD W/O (CODE STROKE) [CT] Stat CHEST PORTABLE [RAD] Stat Audiovisual Librarian: Radiologist - EKG Interpretation EKG Interpretation (Text): 03/24/18 12:53 EKG at 0943 normal sinusrhythm with first degree av block wtih pvcs, nonspecific t wave abnormality Interpreted by ED Physician: Yes Type: 12 lead EKG NIHSS Scale([place]) 2 Time Performed: 12:00 - How Severe is the Stoke Baseline Level of Consciousness: 0=Alert LOC to Questions: 0=Both comments correct LOC to commands: 0=Obeys both correctly Best Gaze: 0=Normal Visual: 0=No visual loss Facial: 0=Normal Motor Arm - Left: 0=No drift Motor Arm - Right: 0=No drift Motor Leg - Left: 0=No drift Motor Leg - Right: 0=No drift Limb Ataxia: 0=Absent Sensory: 0=Normal Best Language: 0=No aphasia Dysarthia: 0=Normal articulation Extinction & Inattention (Neglect): 0=Normal, no object Score: 0 Risk Level: No Stroke Risk NIHSS Scale ([place]) Time Performed: 09:56 - How Severe is the Stoke Baseline Level of Consciousness: 0=Alert LOC to Questions: 0=Both comments correct LOC to commands: 0=Obeys both correctly Best Gaze: 0=Normal Visual: 0=No visual loss Facial: 0=Normal Motor Arm - Left: 0=No drift Motor Arm - Right: 0=No drift Motor Leg - Left: 1=Drift before 5 sec Motor Leg - Right: 1=Drift before 5 sec Limb Ataxia: 0=Absent Sensory: 0=Normal Best Language: 1=Mild to moderate aphasia Dysarthia: 1=Mild to moderate slurring Extinction & Inattention (Neglect): 0=Normal, no object Score: 4 Risk Level: Minor Stroke Risk Disposition/Present on Arrival - Present on Arrival Any Indicators Present on Arrival: No History of DVT/PE: No History of Uncontrolled Diabetes: No Urinary Catheter: No History of Decub. Ulcer: No History Surgical Site Infection Following: None - Disposition Have Diagnosis and Disposition been Completed?: Yes Diagnosis: Lung cancer, Leukocytosis, TIA (transient ischemic attack), Pleural effusion, left Disposition: HOSPITALIZED Disposition Time: 11:00 Patient Plan: Admission, Telemetry Patient Problems: Current Active Problems Problem Status Onset Leukocytosis Acute Lung cancer Acute Pleural effusion, left Acute TIA (transient ischemic attack) Acute Condition: SERIOUS
--- NOTE | 2018-03-24 10:06 | CT ---
Date of service: 03/24/2018 PROCEDURE: CT HEAD WITHOUT CONTRAST. HISTORY: Code Stroke COMPARISON: None available. TECHNIQUE: Axial computed tomography images were obtained through the head/brain without intravenous contrast. Radiation dose: Total exam DLP = 852.61 mGy-cm. This CT exam was performed using one or more of the following dose reduction techniques: Automated exposure control, adjustment of the mA and/or kV according to patient size, and/or use of iterative reconstruction technique. FINDINGS: HEMORRHAGE: No intracranial hemorrhage. BRAIN: No mass effect or edema. Minimal atrophy. Mild chronic periventricular white matter lucency consistent with microvascular ischemic change. Patchy deep/ subcortical white matter lucency. Old bilateral basal ganglia lacunar infarcts. Old right thalamic lacunar infarct. Small old right cerebellar hemispheric infarct. No evidence of acute infarct. VENTRICLES: Unremarkable. No hydrocephalus. CALVARIUM: Unremarkable. PARANASAL SINUSES: Mild chronic sphenoid sinusitis. MASTOID AIR CELLS: Minimal left mastoid effusion, nonspecific. No fluid in middle ear cavity. . OTHER FINDINGS: None. IMPRESSION: No intracranial mass, hemorrhage or evidence of acute infarct. Mild chronic sphenoid sinusitis. Minimal left mastoid effusion, nonspecific. The findings this examination were discussed, by telephone, with Dr. Hargrove at 10:02 a.m. on 03/24/2018.
[2018-03-24 10:17] LABS: EOS % 0.1 % (1.5-5.0); GRAN # 13.23 (1.4-6.5); GRAN % 87.8 % (50.0-68.0); HEMOGLOBIN 10.5 g/dL (12.0-16.0); LYMPH # 0.8 (1.2-3.4); LYMPH % 5.6 % (22.0-35.0); MEAN CELL VOLUME 87.8 fl (80.0-105.0); MEAN CORPUSCULAR HEMOGLOBIN 27.9 pg (25.0-35.0); MEAN CORPUSCULAR HGB CONC 31.8 g/dl (31.0-37.0); MEAN PLATELET VOLUME 9.4 fl (7.0-11.0); MONO % 6.5 % (1.0-6.0); RBC 3.76 10^6/uL (3.5-6.1); RED CELL DISTRIBUTION WIDTH 16.3 % (11.5-14.5); WHITE BLOOD COUNT 15.1 10^3/ul (4.5-11.0)
[2018-03-24 10:22] LABS: INR 0.97; PROTHROMBIN TIME 11.2 SECONDS (9.4-12.5)
[2018-03-24 10:25] LABS: ALB/GLOB RATIO 1.2 (1.1-1.8); ALBUMIN 3.1 g/dL (3.0-4.8); ALT/SGPT 28 U/L (7-56); AST/SGOT 17 U/L (14-36); BLOOD UREA NITROGEN 19 mg/dL (7-21); GFR AFRICAN-AMERICAN > 60; GFR NON-AFRICAN AMERICAN > 60; HDL CHOLESTEROL 57 mg/dL (29-60); PARTIAL THROMBOPLASTIN TIME 24.8 Seconds (25.1-36.5)
[2018-03-24 10:34] LABS: TROPONIN I < 0.01 ng/mL
[2018-03-24 10:35] LABS: LDL CHOLESTEROL 55 mg/dL (0-129)
--- NOTE | 2018-03-24 10:37 | RAD ---
Date of service: 03/24/2018 PROCEDURE: CHEST RADIOGRAPH, 1 VIEW HISTORY: Code Stroke COMPARISON: 03/02/2018 FINDINGS: LUNGS: Clear. PLEURA: Small left pleural effusion CARDIOVASCULAR: Normal. OSSEOUS STRUCTURES: No significant abnormalities. VISUALIZED UPPER ABDOMEN: Normal. OTHER FINDINGS: None. IMPRESSION: Small left pleural effusion
--- NOTE | 2018-03-24 13:08 | CP.PCM.HP ---
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 History obtained by both the patient and her daughter, Ruth, who is patient's health care proxy at bedside. The patient does not recall the events that took place. The daughter states she gave her mother a tramadol to take for her back pain this morning, when the patient "froze" keeping the pill in her mouth, kept her eyes open, and would not respond to any commands. The patient then was speaking but what she was saying did not make any sense. Daughter states the patient did not lose consciousness, have any facial droop, limb weakness, jerking movements, have any urinary incontinence, tongue biting, foaming from the mouth or any other additional symptoms at that time. Patient was then immediately brought into the ED. Patient states she ate her breakfast this morning as usual and denied any abnormal or unusual symptoms before the aforementioned incident and said she felt like her normal self. Currently she denies any focal weakness, chest pain, palpitations, shortness of breath, urinary incontinence, abdominal pain, nausea, vomiting, fever, chills, headache , vision changes, sick contacts or any other complaints at this time. 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 Patient lives at home with her daughter and uses walker to ambulate. Meds: Keppra 500 BID, Lipitor 10, Losartan/HCTZ 100-25 daily, verapamil 240mg, Isosorbide mon ER 30mg, Levothyroxine 25mcg, Pulmicort, Home O2 @4L PMD: Dr. Candelario Dash Onc: Eliz Heme/Onc: Dr. Cortes Neurosurgery: Dr. Lin Ortho: Mastromonaco Present on Admission - Present on Admission Any Indicators Present on Admission: No Review of Systems - Constitutional Constitutional: absent: Chills, Excessive Sweating, Fatigue, Fever, Headache, Weakness - EENT Eyes: absent: Blurred Vision, Change in Vision Ears: absent: Decreased Hearing, Dizziness Nose/Mouth/Throat: absent: Nasal Congestion, Nasal Discharge - Cardiovascular Cardiovascular: absent: Chest Pain, Dyspnea, Edema, Irregular Heart Rhythm, Lightheadedness, Orthopnea, Paroxysmal Nocturnal Dyspnea, Syncope - Respiratory Respiratory: absent: Cough, Dyspnea, Dyspnea on Exertion, Wheezing, Chest Congestion - Gastrointestinal Gastrointestinal: absent: Abdominal Pain, Change in Bowel Habits, Change in Stool Character, Constipation, Diarrhea, Nausea, Vomiting - Genitourinary Genitourinary: absent: Change in Urinary Stream, Difficulty Urinating, Dysuria, Hematuria, Pyuria - Musculoskeletal Musculoskeletal: Back Pain, Radiating Pain into Limb. absent: Numbness, Stiffness, Tingling - Integumentary Integumentary: absent: New Lesions, Sores - Neurological Neurological: absent: Abnormal Gait, Abnormal Speech, Burning Sensations, Confusion, Convulsions, Disequilibrium, Dizziness, Numbness, Focal Weakness, Paresthesias, Syncope, Tingling, Tremor, Vertigo, Weakness, Other Visual Disturbances - Endocrine Endocrine: absent: Excessive Sweating Past Patient History - Infectious Disease Hx of Infectious Diseases: None - Past Social History Smoking Status: Former Smoker - CARDIAC Hx Cardiac Disorders: Yes (high cholesterol) Hx Hypertension: Yes - PULMONARY Hx Chronic Obstructive Pulmonary Disease (COPD): Yes Hx Lung Cancer: Yes - NEUROLOGICAL Hx Neurological Disorder: No - HEENT Hx Cataracts: Yes (Removed) - RENAL Hx Chronic Kidney Disease: No - ENDOCRINE/METABOLIC Hx Hypothyroidism: Yes - HEMATOLOGICAL/ONCOLOGICAL Hx Cancer: Yes (Lung) - INTEGUMENTARY Hx Dermatological Problems: No - MUSCULOSKELETAL/RHEUMATOLOGICAL Hx Falls: No Hx Unsteady Gait: Yes (uses walker) - GASTROINTESTINAL Hx Gastrointestinal Disorders: No - GENITOURINARY/GYNECOLOGICAL Hx Genitourinary Disorders: No - PSYCHIATRIC Hx Anxiety: Yes Hx Substance Use: No - SURGICAL HISTORY Hx Amputation: No Hx Appendectomy: No Hx Cholecystectomy: No Hx Gastric Bypass Surgery: No Hx Hysterectomy: No Hx Joint Replacement: No Hx Kidney Transplant: No Hx Liver Transplant: No Hx Mastectomy: No Hx Musculoskeletal Surgery: No Hx Open Heart Surgery: No Hx Orthopedic Surgery: No Hx Splenectomy: No Hx Valve Replacement: No Meds Allergies/Adverse Reactions: Allergies Allergy/AdvReac Type Severity Reaction Status Date / Time codeine Allergy ANAPHYLAXIS Verified 03/24/18 09:47 Physical Exam - Constitutional Appears: Well, Non-toxic, No Acute Distress - Head Exam Head Exam: ATRAUMATIC, NORMAL INSPECTION, NORMOCEPHALIC - Eye Exam Eye Exam: EOMI, Normal appearance, PERRL Pupil Exam: NORMAL ACCOMODATION, PERRL - ENT Exam ENT Exam: Mucous Membranes Moist, Normal Exam - Neck Exam Neck exam: Positive for: Normal Inspection - Respiratory Exam Respiratory Exam: NORMAL BREATHING PATTERN - Cardiovascular Exam Cardiovascular Exam: REGULAR RHYTHM, +S1, +S2 - GI/Abdominal Exam GI & Abdominal Exam: Normal Bowel Sounds, Soft. absent: Distended, Guarding, Tenderness - Extremities Exam Extremities exam: Positive for: full ROM, normal inspection, pedal pulses present. Negative for: calf tenderness, joint swelling, pedal edema, tenderness - Neurological Exam Neurological exam: Alert, CN II-XII Intact, Normal Gait, Oriented x3, Reflexes Normal - Expanded Neurological Exam Expanded Cranial nerves: EOM's Intact: Normal, Facial Palsey w/Forehead Movement: Normal , Facial Palsey w/o Forehead Movement: Normal, Facial Sensation: Normal, Tongue Deviation: Normal Ataxia: No Cerebellar Function: Finger to Nose: Normal, Heel to Vinson: Normal, Romberg: Normal Upper motor neuron: Babinski Sign: Normal, Lui Neglect: Normal, Pronator Drift : Normal, Sensory Extinction: Normal Sensory exam: Lower Extremity 2 Point Discrimination: Normal, Lower Extremity Light Touch: Normal, Lower Extremity Pin Prick: Normal, Lower Extremity Temperature: Normal, Upper Extremity 2 Point Discrimination: Normal, Upper Extremity Light Touch: Normal, Upper Extremity Pin Prick: Normal, Upper Extremity Temperature: Normal Neuro motor strength exam: Left Upper Extremity: 5, Right Upper Extremity: 5, Left Lower Extremity: 4, Right Lower Extremity: 5 Results - Vital Signs Recent Vital Signs: Last Vital Signs Temp 98.2 F 03/24/18 09:34 Pulse 95 H 03/24/18 11:40 Resp 18 03/24/18 11:40 BP 154/62 H 03/24/18 11:40 Pulse Ox 96 03/24/18 11:40 - Labs Result Diagrams: 03/24/18 09:50 03/24/18 09:50 Assessment & Plan - Assessment and Plan (Free Text) Assessment: 82 year old female with 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 CT head was negative for any acute bleed. Plan: TIA -NIHSS stroke score of 4 initially in ED -code stroke called in ED -Aspirin given, continue -Head CT: No intracranial mass, hemorrhage or evidence of acute infarct. Mild chronic sphenoid sinusitis. Minimal left mastoid effusion, nonspecific. -EKG: NSR with first degree av block -Chest xray: small left pleural effusion -troponin negative -currently no focal deficits -neurology consulted, Dr. Garcia, follow recs -continue home aspirin, lipitor -seizure precautions -fall precautions HTN-chronic -BP 154/62 -continue home meds -continue to monitor COPD-chronic -pulmicort PRN -oxygen Hypothyroidism -continue home synthroid -TSH pending Seizures-Chronic -continue home Keppra -seizure precautions Stage 4 Lung Cancer with metastases to L4 vertebra -status post radiation therapy -pain medication PRN GI Prophylaxis: protonix DVT Prophylaxis: <Inge Harvey - Last Filed: 03/25/18 18:09> Results - Vital Signs Recent Vital Signs: Last Vital Signs Temp 97.9 F 03/25/18 12:00 Pulse 72 03/25/18 14:00 Resp 17 03/25/18 12:00 BP 142/64 03/25/18 12:00 Pulse Ox 100 03/25/18 00:01 - Labs Result Diagrams: 03/25/18 06:30 03/25/18 06:30 Labs: Laboratory Results - last 24 hr 03/24/18 03/25/18 03/25/18 21:46 06:30 06:30 WBC 12.0 H D RBC 3.64 Hgb 10.0 L Hct 31.5 L MCV 86.5 MCH 27.5 MCHC 31.7 RDW 16.6 H Plt Count 177 MPV 9.0 Gran % 89.6 H Lymph % (Auto) 5.6 L [place] % (Auto) 4.8 Eos % (Auto) 0.0 L Baso % (Auto) 0.0 Gran # 10.79 H Lymph # (Auto) 0.7 L [place] # (Auto) 0.6 Eos # (Auto) 0.0 Baso # (Auto) 0.00 Sodium 134 Potassium 4.2 Chloride 95 L Carbon Dioxide 32 Anion Gap 11 BUN 17 Creatinine 0.6 L Est GFR ( Amer) > 60 Est GFR (Non-Af Amer) > 60 POC Glucose (mg/dL) 141 H Random Glucose 120 H Calcium 9.3 Total Bilirubin 0.4 AST 11 L D ALT 30 Alkaline Phosphatase 60 Total Protein 4.9 L Albumin 2.6 L Globulin 2.2 Albumin/Globulin Ratio 1.2 Triglycerides 105 Cholesterol 140 LDL Cholesterol Direct 61 HDL Cholesterol 62 H 03/25/18 03/25/18 03/25/18 08:26 11:18 16:07 WBC RBC Hgb Hct MCV MCH MCHC RDW Plt Count MPV Gran % Lymph % (Auto) [place] % (Auto) Eos % (Auto) Baso % (Auto) Gran # Lymph # (Auto) [place] # (Auto) Eos # (Auto) Baso # (Auto) Sodium Potassium Chloride Carbon Dioxide Anion Gap BUN Creatinine Est GFR ( Amer) Est GFR (Non-Af Amer) POC Glucose (mg/dL) 95 104 151 H Random Glucose Calcium Total Bilirubin AST ALT Alkaline Phosphatase Total Protein Albumin Globulin Albumin/Globulin Ratio Triglycerides Cholesterol LDL Cholesterol Direct HDL Cholesterol Attending/Attestation - Attestation I have personally seen and examined this patient.: Yes I have fully participated in the care of the patient.: Yes I have reviewed all pertinent clinical information: Yes Notes (Text): 03/25/18 18:06 attending note; Patient seen and examined with resident in ER. Patient's daughter by the bedside. Patient is a 82 year old female with stage 4 Lung Cancer(status post radiation therapy 2015) with metastasis to the spine (post radiation treatment to spine February 2017), COPD with home oxygen, HTN, hypothyroidism, seizures on Keppra presents to the ED after her family witnessed her having "stroke like symptoms" this morning around 9:30 am. patient has brief of confusion and questionable aphasia. Code stroke called. Patient already took aspirin. currently patient is completely alert and awake. CT head is negative.Neurology evaluation requested speech and swallow evaluation requested. Continue home medication for blood pressure control. history of stage IV lung cancer; patient completed radiation therapy for spinal metastases. Refused chemotherapy. Follows up with Dr. Cortes as outpatient. Ambulates with walker at home. EKG showed normal sinus rhythm. Chest x-ray is negative for any infiltrate. physical therapy evaluation requested. Monitor patient closely in telemetry. diagnosis and treatment option discussed with patient and patient's daughter in detail. 03/25/18 18:08
--- NOTE | 2018-03-24 14:19 | CP.PCM.CON ---
<Michael Gonzalez - Last Filed: 03/24/18 18:49> History of Present Illness - History of Present Illness History of Present Illness: Michael Gonzalez PGY2 Neurology Consult Note for Dr. Garcia Ms. Gallardo is an 82 year old female with a PMH of lung CA (diagnosed in 2015) w/ mets to spine s/p radiation (finished 10 sessions last Friday03/18/18 w/ Dr. Wellington), seizure (x1 in 2012), COPD, HTN, HLD, and hypothyroidism who is brought in by daughter for confusion and being non-responsive. CODE STROKE was called and neurology was consulted for evaluation. Initially, the patient seemed confused and was not answering questions appropriately. Per daughter ( Ruth) who is bedside, the patient was with her and her for breakfast, when they got in the car and were driving when the patient seemed confused; she was given Tramadol for her back pain (last one 5AM today) but she held it in her hand and did not know what to do with it; Tramadol is written for her by Dr. Cortes and recommdended by a relative who is a neurologist. Daughter states the patient did not lose consciousness, have any facial droop, limb weakness, jerking movements, have any urinary incontinence, tongue biting, foaming from the mouth or any other additional symptoms at that time. The symptoms persisted for half an hour in the ED, after which they resolved and the patient has been back to baseline. The patient has an appointment with Dr. Cortes in 3 weeks for possible continuation of radiation therapy. The patient denies any recent illness, sick contacts, fevers/chills, chest pain or shortness of breath, or abdominal pain. She does not take chemotherapy. When reevaluated, the patient is alert and oriented 3, has no focal deficits and has normal recall. However, she does not recall the events from after leaving the restaurant to being in the ED. At time of exam, the patient is asymptomatic and has no complaints and a normal neuro exam. 12-pt ROS was reviewed and is unremarkable. In ED, CT Head showed no intracranial mass, hemorrhage or evidence of acute infarct and mild chronic sphenoid sinusitis w/ minimal left mastoid effusion. CXR showed small left pleural effusion. PMD: Dr. Payne (only see [place]) Oncology (Dr. Cortes PMH: As above PSH: None Meds: As per OCT Allergies: Codeine SHx: smoked tobacco from age 14 to 62 heavily, quit in 1993, denies any alcohol or illicit drug use. Patient lives at home with her daughter and uses walker to ambulate. FHx: reviewed and non contributory Past Patient History - Infectious Disease Hx of Infectious Diseases: None - Past Social History Smoking Status: Former Smoker - CARDIAC Hx Cardiac Disorders: Yes (high cholesterol) Hx Hypertension: Yes - PULMONARY Hx Chronic Obstructive Pulmonary Disease (COPD): Yes Hx Lung Cancer: Yes - NEUROLOGICAL Hx Neurological Disorder: No - HEENT Hx Cataracts: Yes (Removed) - RENAL Hx Chronic Kidney Disease: No - ENDOCRINE/METABOLIC Hx Hypothyroidism: Yes - HEMATOLOGICAL/ONCOLOGICAL Hx Cancer: Yes (Lung) - INTEGUMENTARY Hx Dermatological Problems: No - MUSCULOSKELETAL/RHEUMATOLOGICAL Hx Falls: No Hx Unsteady Gait: Yes (uses walker) - GASTROINTESTINAL Hx Gastrointestinal Disorders: No - GENITOURINARY/GYNECOLOGICAL Hx Genitourinary Disorders: No - PSYCHIATRIC Hx Anxiety: Yes Hx Substance Use: No - SURGICAL HISTORY Hx Amputation: No Hx Appendectomy: No Hx Cholecystectomy: No Hx Gastric Bypass Surgery: No Hx Hysterectomy: No Hx Joint Replacement: No Hx Kidney Transplant: No Hx Liver Transplant: No Hx Mastectomy: No Hx Musculoskeletal Surgery: No Hx Open Heart Surgery: No Hx Orthopedic Surgery: No Hx Splenectomy: No Hx Valve Replacement: No Meds Allergies/Adverse Reactions: Allergies Allergy/AdvReac Type Severity Reaction Status Date / Time codeine Allergy ANAPHYLAXIS Verified 03/24/18 09:47 - Medications Medications: Current Medications Albuterol/Ipratropium (Duoneb 3 Mg/0.5 Mg (3 Ml) Ud) 3 ml IH Q6H [facility] Aspirin (Ecotrin) 81 mg PO DAILY [facility] Atorvastatin Calcium (Lipitor) 20 mg PO DAILY [facility] Heparin Sodium (Porcine) (Heparin) 5,000 units SC Q12 KATE PRN Reason: Protocol Hydrochlorothiazide (Hydrodiuril) 25 mg PO DAILY [facility] Insulin Human Lispro (Humalog Low) 0 units SC ACHS KATE PRN Reason: Protocol Isosorbide Mononitrate (Imdur Er) 30 mg PO DAILY [facility] Levetiracetam (Keppra) 500 mg PO BID [facility] Levothyroxine Sodium (Synthroid) 25 mcg PO DAILY [facility] Losartan Potassium (Cozaar) 100 mg PO DAILY [facility] Pantoprazole Sodium (Protonix Ec Tab) 40 mg PO 0600 KATE Tramadol HCl (Ultram) 50 mg PO TID PRN PRN Reason: Pain, Mild (1-3) Verapamil HCl (Calan Sr Tab) 240 mg PO DAILY [facility] Results - Vital Signs Recent Vital Signs: Last Vital Signs Temp 98.2 F 03/24/18 09:34 Pulse 95 H 03/24/18 11:40 Resp 18 03/24/18 11:40 BP 154/62 H 03/24/18 11:40 Pulse Ox 96 03/24/18 11:40 - Labs Result Diagrams: 03/24/18 09:50 03/24/18 09:50 Assessment & Plan - Assessment and Plan (Free Text) Assessment: 82-year-old female with a PMH of lung CA with metastases to spine S/P radiation , COPD, HTN, HLD and hypothyroidism who presented for an acute episode of confusion, which spontaneously resolved. CODE STROKE was called, but patient was not a candidate for tPA. Likely cause is TIA versus seizure w/ post-ictal state. Infectious and metabolic causes of delerium should be also ruled out. Plan: Acute delerium, resolved - Admit to telemetry floor - Neurochecks - MRI w/ and w/o ordered to r/o mets to brain - EEG ordered to r/o possible post-ictal state - Speech & Swallow eval, cleared for PO intake - Continue Keppra 500 mg twice daily - PT - Seizure precautions - UA, Ucx and Bcx to r/o infectious cause of delerium - leukocytosis could be due to outpatient steroid use - monitor for changes of mental status - Further recs per Dr. Garcia Case was reviewed and discussed with attending, Dr. Garcia <Jett Garcia - Last Filed: 03/24/18 21:02> Meds - Medications Medications: Current Medications Albuterol/Ipratropium (Duoneb 3 Mg/0.5 Mg (3 Ml) Ud) 3 ml IH Q6H [facility] Last Admin: 03/24/18 19:22 Dose: 3 ml Aspirin (Ecotrin) 81 mg PO DAILY [facility] Atorvastatin Calcium (Lipitor) 20 mg PO DAILY [facility] Heparin Sodium (Porcine) (Heparin) 5,000 units SC Q12 KATE PRN Reason: Protocol Hydrochlorothiazide (Hydrodiuril) 25 mg PO DAILY [facility] Insulin Human Lispro (Humalog Low) 0 units SC ACHS KATE PRN Reason: Protocol Last Admin: 03/24/18 16:30 Dose: Not Given Isosorbide Mononitrate (Imdur Er) 30 mg PO DAILY [facility] Levetiracetam (Keppra) 500 mg PO BID [facility] Last Admin: 03/24/18 18:05 Dose: 500 mg Levothyroxine Sodium (Synthroid) 25 mcg PO DAILY [facility] Losartan Potassium (Cozaar) 100 mg PO DAILY [facility] Metoprolol Tartrate (Lopressor) 5 mg IVP Q6 PRN PRN Reason: Heart rate Pantoprazole Sodium (Protonix Ec Tab) 40 mg PO 0600 KATE Tramadol HCl (Ultram) 50 mg PO TID PRN PRN Reason: Pain, Mild (1-3) Verapamil HCl (Calan Sr Tab) 240 mg PO DAILY [facility] Results - Vital Signs Recent Vital Signs: Last Vital Signs Temp 99 F 03/24/18 18:54 Pulse 100 H 03/24/18 19:23 Resp 18 03/24/18 18:54 BP 131/63 03/24/18 18:54 Pulse Ox 97 03/24/18 17:51 - Labs Result Diagrams: 03/24/18 09:50 03/24/18 09:50 Labs: Laboratory Results - last 24 hr 03/24/18 03/24/18 16:27 17:15 POC Glucose (mg/dL) 137 H Urine Color Yellow Urine Appearance Clear Urine pH 8.5 Ur Specific [place] 1.015 Urine Protein Negative Urine Glucose (UA) Negative Urine Ketones Negative Urine Blood Negative Urine Nitrate Negative Urine Bilirubin Negative Urine Urobilinogen 0.2 Ur Leukocyte Esterase Trace H Urine RBC Negative Urine WBC 0 - 2 Ur Epithelial Cells 0 - 2 Amorphous Sediment Small Assessment & Plan (1) Seizure Assessment and Plan: The patient has no recollection of today's event and afterward she was aphasic. This was likely a post-ictal state. Currently, the patient is speaking fluently. I would like to start her on Keppra 500 mg BID for seizure prophylaxis. Status: Acute Priority: Medium Attending/Attestation - Attestation I have personally seen and examined this patient.: Yes I have fully participated in the care of the patient.: Yes I have reviewed all pertinent clinical information: Yes Notes (Text): 03/24/18 21:01 I personally examined the patient and find the following: AAOX3, speech is fluent, no aphasia or dysarthria. CN 2-12 intact. Moves all extremities symmetrically. Sensation is intact. Reflexes are normal. Plantar responses are downgoing.
[2018-03-24] MEDS ORDERED: levETIRAcetam 500 MG in Sodium Chloride 0.9% 100 ML IV ONE (15:30)
--- NOTE | 2018-03-24 15:33 | CARD ---
APPROVED REPORT Date of service: 03/24/2018 EKG Measurement Heart [id number] <Conclusion> Sinus rhythm with 1st degree AV block with occasional premature ventricular complexes Nonspecific T wave abnormality Abnormal ECG
[2018-03-24] MEDS ORDERED: Metoprolol 1 mg/ml Inj IVP PRN (15:40)
[2018-03-24] MEDS: Insulin Lispro (humaLOG) LOW Coverage SC SCH ×2 (16:30→23:58)
[2018-03-24 17:29] LABS: PH,URINE 8.5 (4.7-8.0); URINE BILIRUBIN NEGATIVE (NEGATIVE); URINE BLOOD NEGATIVE (NEGATIVE); URINE GLUCOSE (UA) NEGATIVE (NEGATIVE); URINE LEUKOCYTE ESTERASE TRACE Leu/uL (NEGATIVE); URINE PROTEIN NEGATIVE mg/dL (<30 mg/dL); URINE UROBILINOGEN 0.2 E.U./dL (<1 E.U./dL)
[2018-03-24 17:30] LABS: URINE APPEARANCE CLEAR (CLEAR); URINE COLOR YELLOW (YELLOW)
[2018-03-24 17:32] LABS: URINE EPITHELIAL CELLS 0 - 2 /hpf (0-5); URINE RBC NEGATIVE /hpf (0-2); URINE WBC 0 - 2 /hpf (0-6)
[2018-03-24 17:33] LABS: URINE AMORPHOUS SEDIMENT SMALL
[2018-03-24] MEDS: Albuterol-Ipratrop 3 mg / 0.5 (3 ml) UD IH SCH (19:22)
[2018-03-25] MEDS: Albuterol-Ipratrop 3 mg / 0.5 (3 ml) UD IH SCH ×4 (02:18→19:49)
[2018-03-25 07:05] LABS: GRAN # 10.79 (1.4-6.5); GRAN % 89.6 % (50.0-68.0); LYMPH # 0.7 (1.2-3.4); LYMPH % 5.6 % (22.0-35.0); MEAN CELL VOLUME 86.5 fl (80.0-105.0); MEAN CORPUSCULAR HEMOGLOBIN 27.5 pg (25.0-35.0); MEAN CORPUSCULAR HGB CONC 31.7 g/dl (31.0-37.0); MONO # 0.6 (0.1-0.6); MONO % 4.8 % (1.0-6.0); RBC 3.64 10^6/uL (3.5-6.1); RED CELL DISTRIBUTION WIDTH 16.6 % (11.5-14.5)
[2018-03-25 07:17] LABS: LDL CHOLESTEROL 61 mg/dL (0-129)
[2018-03-25 07:18] LABS: ALB/GLOB RATIO 1.2 (1.1-1.8); ALBUMIN 2.6 g/dL (3.0-4.8); ALT/SGPT 30 U/L (7-56); AST/SGOT 11 U/L (14-36); BLOOD UREA NITROGEN 17 mg/dL (7-21); CALCIUM 9.3 mg/dL (8.4-10.5); GFR AFRICAN-AMERICAN > 60; GFR NON-AFRICAN AMERICAN > 60; HDL CHOLESTEROL 62 mg/dL (29-60)
[2018-03-25] MEDS: Levothyroxine 25 MCG TAB PO SCH (09:22)
[2018-03-25] MEDS: Verapamil 240 mg ER Tab PO SCH (09:23)
[2018-03-25] MEDS: Insulin Lispro (humaLOG) LOW Coverage SC SCH ×4 (09:30→23:07)
[2018-03-25] MEDS ORDERED: HYDROCHLOROTHIAZIDE PO SCH (10:00)
[2018-03-25] MEDS ORDERED: [UNRECOGNIZED DRUG - OTHER] PO SCH (10:00)
[2018-03-25] MEDS ORDERED: LOSARTAN PO SCH (10:00)
--- NOTE | 2018-03-25 11:12 | CP.PCM.PN ---
Subjective - Date & Time of Evaluation Date of Evaluation: 03/25/18 Time of Evaluation: 10:12 - Subjective Subjective: Michael Gonzalez PGY 2 [address] Progress Note [address] Dr[address] Joe Patient was seen and examined at bedside. She denies any overnight symptoms of confusion, dizziness, headaches, changes in vision or hearing, gait instability or any focal weakness or slurring of speech. She is alert and oriented and per nursing staff there were no acute overnight events. The patient had an EEG done this morning. Regarding her MRI, the patient has been refusing to have it done. We had discussion with patient regarding importance of MRI in diagnosing possible brain metastasis, and offered medication while undergoing MRI. The patient refused MRI, and states understanding of importance and of the information it can provide but at this time would not like to undergo examination. The patient states "I know what it is going to show, and I do not want to know that." Objective - Vital Signs/Intake and Output Vital Signs (last 24 hours): Temp Pulse Resp BP Pulse Ox 97.9 F 80 20 143/70 100 03/25/18 00:01 03/25/18 09:23 03/25/18 00:01 03/25/18 09:23 03/25/18 00:01 Intake and Output: 03/25/18 03/25/18 06:59 18:59 Intake Total 300 Output Total 1050 Balance -750 - Medications Medications: Current Medications Albuterol/Ipratropium (Duoneb 3 Mg/0.5 Mg (3 Ml) Ud) 3 ml IH Q6H [facility] Last Admin: 03/25/18 09:28 Dose: Not Given Aspirin (Ecotrin) 81 mg PO DAILY [facility] Last Admin: 03/25/18 09:22 Dose: 81 mg Atorvastatin Calcium (Lipitor) 20 mg PO DAILY [facility] Last Admin: 03/25/18 09:22 Dose: 20 mg Heparin Sodium (Porcine) (Heparin) 5,000 units SC Q12 [facility] PRN Reason: Protocol Last Admin: 03/25/18 09:21 Dose: 5,000 units Hydrochlorothiazide (Hydrodiuril) 25 mg PO DAILY [facility] Last Admin: 03/25/18 09:22 Dose: 25 mg Insulin Human Lispro (Humalog Low) 0 units SC ACHS [facility] PRN Reason: Protocol Last Admin: 03/25/18 09:30 Dose: Not Given Isosorbide Mononitrate (Imdur Er) 30 mg PO DAILY [facility] Last Admin: 03/25/18 09:23 Dose: 30 mg Levetiracetam (Keppra) 500 mg PO BID [facility] Last Admin: 03/25/18 09:22 Dose: 500 mg Levothyroxine Sodium (Synthroid) 25 mcg PO DAILY [facility] Last Admin: 03/25/18 09:22 Dose: 25 mcg Losartan Potassium (Cozaar) 100 mg PO DAILY [facility] Last Admin: 03/25/18 09:23 Dose: 100 mg Metoprolol Tartrate (Lopressor) 5 mg IVP Q6 PRN PRN Reason: Heart rate Pantoprazole Sodium (Protonix Ec Tab) 40 mg PO 0600 [facility] Tramadol HCl (Ultram) 50 mg PO TID PRN PRN Reason: Pain, Mild (1-3) Verapamil HCl (Calan Sr Tab) 240 mg PO DAILY [facility] Last Admin: 03/25/18 09:23 Dose: 240 mg - Labs Labs: 03/25/18 06:30 03/25/18 06:30 PT 11.2 SECONDS (9.4-12.5) 03/24/18 09:50 INR 0.97 03/24/18 09:50 APTT 24.8 Seconds (25.1-36.5) L 03/24/18 09:50 - Constitutional Appears: Well, Non-toxic, No Acute Distress - Head Exam Head Exam: ATRAUMATIC, NORMAL INSPECTION, NORMOCEPHALIC - Eye Exam Eye Exam: EOMI, Normal appearance, PERRL Pupil Exam: NORMAL ACCOMODATION - ENT Exam ENT Exam: Mucous Membranes Moist - Neck Exam Neck Exam: Normal Inspection - Respiratory Exam Respiratory Exam: Clear to Ausculation Bilateral, NORMAL BREATHING PATTERN. absent: Rales, Rhonchi, Wheezes, Respiratory Distress - Cardiovascular Exam Cardiovascular Exam: RRR, +S1, +S2. absent: Murmur - GI/Abdominal Exam GI & Abdominal Exam: Soft, Normal Bowel Sounds. absent: Distended, Tenderness - Extremities Exam Extremities Exam: Full ROM, Normal Inspection. 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 CODE STROKE was called, but patient was not a candidate for tPA. Likely cause is seizure w/ post-ictal state. Infectious and metabolic causes of delerium should be also ruled out. Brain metastasis is possible, however, patient is refusing MRI at this time because she'd rather not know, despite education about risks including . Plan: Acute delerium, resolved - Neurochecks - MRI w/ and w/o ordered to r/o mets to brain; patient has refused - EEG ordered to r/o possible post-ictal state; done, pending official read - Continue Keppra 500 mg twice daily - PT - Seizure precautions - depending on EEG, patient might require increased dose of Keppra, but at this time, should continue 500mg BID - Further recs per Dr. Joe Case was reviewed and discussed with attending, Dr. Joe
--- NOTE | 2018-03-25 13:47 | CP.PCM.PN ---
<Demetris Kearney - Last Filed: 03/25/18 15:48> Subjective - Date & Time of Evaluation Date of Evaluation: 03/25/18 Time of Evaluation: 09:00 - Subjective Subjective: Demetris Kearney PGY1 Internal Medicine Progress Note for Dr. Harvey 82F seen and evaluated at bedside this morning. Patient was awake in bed, resting comfortably. No acute events overnight. No complaints this morning. Patient is tolerating her diet and medications. She is speaking fluently. She has difficulty ambulating because of pain in the left leg. Patient continues to refuse MRI of the brain. Denies any confusion, headache, dizziness, or loss of consciousness. She denies any fever, chills, shortness of breath, chest pain, palpitations, nausea, vomiting, diarrhea, constipation, or abdominal pain. Objective - Vital Signs/Intake and Output Vital Signs (last 24 hours): Temp Pulse Resp BP Pulse Ox 97.9 F 76 17 142/64 100 03/25/18 12:00 03/25/18 12:00 03/25/18 12:00 03/25/18 12:00 03/25/18 00:01 Intake and Output: 03/25/18 03/25/18 06:59 18:59 Intake Total 300 Output Total 1050 Balance -750 - Medications Medications: Current Medications Albuterol/Ipratropium (Duoneb 3 Mg/0.5 Mg (3 Ml) Ud) [address] [facility] Last Admin: 03/25/18 09:28 Dose: Not Given Aspirin (Ecotrin) [address] [facility] Last Admin: 03/25/18 09:22 Dose: 81 mg Atorvastatin Calcium (Lipitor) [address] [facility] Last Admin: 03/25/18 09:22 Dose: 20 mg Heparin Sodium (Porcine) (Heparin) 5,[address] [facility] PRN Reason: Protocol Last Admin: 03/25/18 09:21 Dose: 5,000 units Hydrochlorothiazide (Hydrodiuril) [address] [facility] Last Admin: 03/25/18 09:22 Dose: 25 mg Insulin Human Lispro (Humalog Low) [address] [facility] PRN Reason: Protocol Last Admin: 03/25/18 09:30 Dose: Not Given Isosorbide Mononitrate (Imdur Er) [address] [facility] Last Admin: 03/25/18 09:23 Dose: 30 mg Levetiracetam (Keppra) [address] [facility] Last Admin: 03/25/18 09:22 Dose: 500 mg Levothyroxine Sodium (Synthroid) [address] [facility] Last Admin: 03/25/18 09:22 Dose: 25 mcg Losartan Potassium (Cozaar) [address] [facility] Last Admin: 03/25/18 09:23 Dose: 100 mg Metoprolol Tartrate (Lopressor) 5 mg IVP Q6 PRN PRN Reason: Heart rate Pantoprazole Sodium (Protonix Ec Tab) [address] [facility] Tramadol HCl (Ultram) 50 mg PO TID PRN PRN Reason: Pain, Mild (1-3) Verapamil HCl (Calan Sr Tab) [address] [facility] Last Admin: 03/25/18 09:23 Dose: 240 mg - Labs Labs: 03/25/18 06:30 03/25/18 06:30 PT 11.2 SECONDS (9.4-12.5) 03/24/18 09:50 INR 0.97 03/24/18 09:50 APTT 24.8 Seconds (25.1-36.5) L 03/24/18 09:50 - Constitutional Appears: Well, Non-toxic, No Acute Distress - Head Exam Head Exam: ATRAUMATIC, NORMAL INSPECTION, NORMOCEPHALIC - Eye Exam Eye Exam: EOMI, Normal appearance - ENT Exam ENT Exam: Mucous Membranes Moist - Respiratory Exam Respiratory Exam: Clear to Ausculation Bilateral, NORMAL BREATHING PATTERN - Cardiovascular Exam Cardiovascular Exam: REGULAR RHYTHM, +S1, +S2. absent: Murmur - GI/Abdominal Exam GI & Abdominal Exam: Soft, Normal Bowel Sounds. absent: Tenderness - Rectal Exam Rectal Exam: Deferred - Extremities Exam Additional comments: Left extremity limited range of motion and muscle strength compared to right - Neurological Exam Neurological Exam: Alert, Awake, CN II-XII Intact, Oriented x3 - Psychiatric Exam Psychiatric exam: Normal Affect, Normal Mood - Skin Skin Exam: Dry, Intact, Normal Color, Warm Assessment and Plan - Assessment and Plan (Free Text) Assessment: 82 year old female with stage 4 Lung Cancer (status post radiation therapy 2015 ) with metastasis to the spine (post radiation treatment to spine February 2017), COPD with home oxygen, HTN, hypothyroidism, seizures on Keppra presented to the ED with TIA. Plan: 1. Acute Delirium vs. Seizure -Head CT: No intracranial mass, hemorrhage or evidence of acute infarct. Mild chronic sphenoid sinusitis. Minimal left mastoid effusion, nonspecific. -Patient continues to refuse an MRI of the brain -EEG pending read -Neurology consulted, Dr. Garcia/Heath, recommendations appreciated -Continue Keppra 500mg BID -Continue home Aspirin and Lipitor -Neuro checks -Seizure precautions -Fall precautions -PT evaluation pending 2. HTN -Continue home medications -Continue to monitor 3. COPD -Pulmicort PRN -Oxygen (Nasal Canula) 4. Hypothyroidism -Continue home synthroid -TSH 2.46 5. 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 Harvey. Demetris Kearney PGY1 <Inge Harvey - Last Filed: 03/26/18 16:30> Objective - Vital Signs/Intake and Output Vital Signs (last 24 hours): Temp Pulse Resp BP Pulse Ox 97.9 F 72 17 142/64 100 03/25/18 12:00 03/25/18 14:00 03/25/18 12:00 03/25/18 12:00 03/25/18 00:01 Intake and Output: 03/25/18 03/25/18 06:59 18:59 Intake Total 300 Output Total 1050 Balance -750 - Medications Medications: Current Medications Al Hydrox/Mg Hydrox/Simethicone (Maalox Plus 30 Ml) 30 ml PO Q12 [facility] Albuterol/Ipratropium (Duoneb 3 Mg/0.5 Mg (3 Ml) Ud) [address] [facility] Last Admin: 03/25/18 14:05 Dose: 3 ml Aspirin (Ecotrin) 81 mg PO DAILY [facility] Last Admin: 03/25/18 09:22 Dose: 81 mg Atorvastatin Calcium (Lipitor) [address] [facility] Last Admin: 03/25/18 09:22 Dose: 20 mg Enoxaparin Sodium (Lovenox) 70 mg SC Q12H [facility] PRN Reason: Protocol Last Admin: 03/25/18 17:35 Dose: 70 mg Hydrochlorothiazide (Hydrodiuril) [address] [facility] Last Admin: 03/25/18 09:22 Dose: 25 mg Insulin Human Lispro (Humalog Low) [address] [facility] PRN Reason: Protocol Last Admin: 03/25/18 17:30 Dose: 1 unit Isosorbide Mononitrate (Imdur Er) [address] [facility] Last Admin: 03/25/18 09:23 Dose: 30 mg Levetiracetam (Keppra) [address] [facility] Last Admin: 03/25/18 17:35 Dose: 500 mg Levothyroxine Sodium (Synthroid) [address] [facility] Last Admin: 03/25/18 09:22 Dose: 25 mcg Losartan Potassium (Cozaar) [address] [facility] Last Admin: 03/25/18 09:23 Dose: 100 mg Metoprolol Tartrate (Lopressor) 5 mg IVP Q6 PRN PRN Reason: Heart rate Pantoprazole Sodium (Protonix Ec Tab) [address] [facility] Tramadol HCl (Ultram) 50 mg PO TID PRN PRN Reason: Pain, Mild (1-3) Last Admin: 03/25/18 14:10 Dose: 50 mg Verapamil HCl (Calan Sr Tab) [address] [facility] Last Admin: 03/25/18 09:23 Dose: 240 mg - Labs Labs: 03/25/18 06:30 03/25/18 06:30 PT 11.2 SECONDS (9.4-12.5) 03/24/18 09:50 INR 0.97 03/24/18 09:50 APTT 24.8 Seconds (25.1-36.5) L 03/24/18 09:50 Attending/Attestation - Attestation I have personally seen and examined this patient.: Yes I have fully participated in the care of the patient.: Yes I have reviewed all pertinent clinical information, including history, physical exam and plan: Yes Notes (Text): 03/25/18 18:11 attending note; Patient seen and examined with resident. patient is alert and awake. Denies any chest pain, shortness of breath. denies any back pain. Patient is a 82 year old female with stage 4 Lung Cancer(status post radiation therapy 2015) with metastasis to the spine (post radiation treatment to spine February 2017), COPD with home oxygen, HTN, hypothyroidism, seizures on Keppra presents to the ED after her family witnessed her having "stroke like symptoms" patient has brief of confusion and questionable aphasia. Code stroke called. CT head is negative.Neurology evaluation appreciated. We will speech and swallow evaluation appreciated. Tolerating diet well. history of stage IV lung cancer; patient completed radiation therapy for spinal metastases. Refused chemotherapy. Follows up with Dr. Cortes as outpatient. Ambulates with walker at home. EKG showed normal sinus rhythm. Chest x-ray is negative for any infiltrate. physical therapy evaluation appreciated. diagnosis and treatment option discussed with patient and patient's daughter in detail. Addendum; Patient had an episode of atrial fibrillation rate controlled. Vitals stable. EKG showed A. fib. Patient denied any history of atrial fibrillation in the past. Patient started on subcutaneous Lovenox . Echocardiogram was requested .cardiology evaluation requested . The diagnosis and treatment plan discussed with patient and patient's daughter in detail by the bedside .
--- NOTE | 2018-03-25 17:12 | CARD ---
APPROVED REPORT Date of service: 03/25/2018 EKG Measurement Heart [id number] <Conclusion> Atrial fibrillation Nonspecific T wave abnormality, probably digitalis effect Abnormal ECG
[2018-03-25] MEDS: Enoxaparin 80 mg Syringe SC SCH (17:35)
[2018-03-25] MEDS: Alum-Mag Hydrox-Simethicone Susp (30 mL) PO SCH (23:19)
[2018-03-26] MEDS: Albuterol-Ipratrop 3 mg / 0.5 (3 ml) UD IH SCH ×4 (00:54→20:15)
[2018-03-26] MEDS: Pantoprazole 40 mg EC Tab PO SCH (05:59)
[2018-03-26] MEDS: Enoxaparin 80 mg Syringe SC SCH (06:00)
[2018-03-26 06:39] LABS: BASO # 0.01 K/mm3 (0.0-2.0); BASO % 0.1 % (0.0-3.0); EOS # 0.1 (0.0-0.7); EOS % 0.7 % (1.5-5.0); GRAN # 8.69 (1.4-6.5); GRAN % 78.9 % (50.0-68.0); HEMOGLOBIN 10.5 g/dL (12.0-16.0); LYMPH # 0.9 (1.2-3.4); LYMPH % 8.2 % (22.0-35.0); MEAN CELL VOLUME 87.1 fl (80.0-105.0); MEAN CORPUSCULAR HEMOGLOBIN 27.6 pg (25.0-35.0); MEAN CORPUSCULAR HGB CONC 31.6 g/dl (31.0-37.0); MEAN PLATELET VOLUME 8.9 fl (7.0-11.0); MONO # 1.3 (0.1-0.6); MONO % 12.1 % (1.0-6.0); RBC 3.81 10^6/uL (3.5-6.1); RED CELL DISTRIBUTION WIDTH 17.1 % (11.5-14.5)
[2018-03-26 06:50] LABS: ALB/GLOB RATIO 1.2 (1.1-1.8); ALBUMIN 2.9 g/dL (3.0-4.8); ALT/SGPT 29 U/L (7-56); AST/SGOT 14 U/L (14-36); BLOOD UREA NITROGEN 18 mg/dL (7-21); CALCIUM 9.7 mg/dL (8.4-10.5); GFR AFRICAN-AMERICAN > 60; GFR NON-AFRICAN AMERICAN > 60
[2018-03-26 06:56] LABS: TROPONIN I < 0.01 ng/mL
--- NOTE | 2018-03-26 07:39 | CP.PCM.PN ---
<Demetris Kearney - Last Filed: 03/26/18 16:13> Subjective - Date & Time of Evaluation Date of Evaluation: 03/26/18 Time of Evaluation: 07:38 - Subjective Subjective: Demetris Soliz PGY1 Internal Medicine Progress Note for Dr. Harvey 82 year old female seen and evaluated at bedside this morning. Patient resting comfortably in bed. Patient converted to Afib last night, subsequently started on lovenox. She was monitored on telemetry and did not experience another episode of Afib and remained in NSR. Admits to an occasional headache that comes and goes. Denies fever, chills, dizziness, confusion, shortness of breath , chest pain, palpitations, nausea, vomit, abdominal pain. Objective - Vital Signs/Intake and Output Vital Signs (last 24 hours): Temp Pulse Resp BP Pulse Ox 98.4 F 80 16 140/56 L 100 03/26/18 06:00 03/26/18 06:00 03/26/18 06:00 03/26/18 06:00 03/26/18 06:00 Intake and Output: 03/26/18 03/26/18 06:59 18:59 Output Total 1100 Balance -1100 - Medications Medications: Current Medications Al Hydrox/Mg Hydrox/Simethicone (Maalox Plus 30 Ml) 30 ml PO Q12 [facility] Last Admin: 03/25/18 23:19 Dose: 30 ml Albuterol/Ipratropium (Duoneb 3 Mg/0.5 Mg (3 Ml) Ud) 3 ml IH Q6H [facility] Last Admin: 03/26/18 07:34 Dose: 3 ml Aspirin (Ecotrin) 81 mg PO DAILY [facility] Last Admin: 03/25/18 09:22 Dose: 81 mg Atorvastatin Calcium (Lipitor) 20 mg PO DAILY [facility] Last Admin: 03/25/18 09:22 Dose: 20 mg Enoxaparin Sodium (Lovenox) 70 mg SC Q12H [facility] PRN Reason: Protocol Last Admin: 03/26/18 06:00 Dose: 70 mg Hydrochlorothiazide (Hydrodiuril) 25 mg PO DAILY [facility] Last Admin: 03/25/18 09:22 Dose: 25 mg Insulin Human Lispro (Humalog Low) 0 units SC ACHS [facility] PRN Reason: Protocol Last Admin: 03/25/18 23:07 Dose: Not Given Isosorbide Mononitrate (Imdur Er) 30 mg PO DAILY [facility] Last Admin: 03/25/18 09:23 Dose: 30 mg Levetiracetam (Keppra) 500 mg PO BID [facility] Last Admin: 03/25/18 17:35 Dose: 500 mg Levothyroxine Sodium (Synthroid) 25 mcg PO DAILY [facility] Last Admin: 03/25/18 09:22 Dose: 25 mcg Losartan Potassium (Cozaar) 100 mg PO DAILY [facility] Last Admin: 03/25/18 09:23 Dose: 100 mg Metoprolol Tartrate (Lopressor) 5 mg IVP Q6 PRN PRN Reason: Heart rate Pantoprazole Sodium (Protonix Ec Tab) 40 mg PO 0600 [facility] Last Admin: 03/26/18 05:59 Dose: 40 mg Tramadol HCl (Ultram) 50 mg PO TID PRN PRN Reason: Pain, Mild (1-3) Last Admin: 03/26/18 04:20 Dose: 50 mg Verapamil HCl (Calan Sr Tab) 240 mg PO DAILY [facility] Last Admin: 03/25/18 09:23 Dose: 240 mg - Labs Labs: 03/26/18 06:00 03/26/18 06:00 PT 11.2 SECONDS (9.4-12.5) 03/24/18 09:50 INR 0.97 03/24/18 09:50 APTT 24.8 Seconds (25.1-36.5) L 03/24/18 09:50 - Constitutional Appears: Well, Non-toxic, No Acute Distress - Head Exam Head Exam: ATRAUMATIC, NORMAL INSPECTION, NORMOCEPHALIC - Eye Exam Eye Exam: EOMI, PERRL - ENT Exam ENT Exam: Mucous Membranes Moist - Respiratory Exam Respiratory Exam: Clear to Ausculation Bilateral, NORMAL BREATHING PATTERN. absent: Accessory Muscle Use, Wheezes, Respiratory Distress - Cardiovascular Exam Cardiovascular Exam: REGULAR RHYTHM, +S1, +S2. absent: Murmur - GI/Abdominal Exam GI & Abdominal Exam: Soft, Normal Bowel Sounds. absent: Tenderness - Neurological Exam Neurological Exam: Alert, Awake, CN II-XII Intact, Oriented x3 - Psychiatric Exam Psychiatric exam: Normal Affect, Normal Mood Assessment and Plan - Assessment and Plan (Free Text) Assessment: 82 year old female with stage 4 Lung Cancer (status post radiation therapy 2015 ) with metastasis to the spine (post radiation treatment to spine February 2017), COPD with home oxygen, HTN, hypothyroidism, seizures on Keppra admitted for suspected TIA. Plan: 1. Acute Delirium vs. Seizure -Head CT: No intracranial mass, hemorrhage or evidence of acute infarct. Mild chronic sphenoid sinusitis. Minimal left mastoid effusion, nonspecific. -Patient continues to refuse an MRI of the brain -EEG pending read -Neurology consulted, Dr. Garcia/Heath, recommendations appreciated -Continue Keppra 500mg BID -Continue home Aspirin and Lipitor -Seizure precautions -Fall precautions -PT recommends JOHN 2. New Onset Atrial Fibrillation - Patient may have paroxysmal atrial fibrillation that was a precursor to her presenting symptoms in the ED - Cardiology consulted - Dr. Rich: Repeat 12 lead EKG pending, started on Calan 240 mg daily, ECHO pending, will determine if patient needs long-term anticoagulation 3. HTN -Continue home medications -Continue to monitor 4. COPD -Pulmicort PRN -Oxygen (Nasal Canula) 5. Hypothyroidism -Continue home synthroid -TSH 2.46 6. Stage 4 Lung Cancer with metastases to L4 vertebra -Status post radiation therapy -Pain medication PRN GI Prophylaxis: Protonix DVT Prophylaxis: Lovenox Heart Healthy Diet Dispo: PT recommends subacute rehab Plan discussed with Dr. Harvey. Demetris Kearney PGY1 <Inge Harvey - Last Filed: 03/26/18 16:33> Objective - Vital Signs/Intake and Output Vital Signs (last 24 hours): Temp Pulse Resp BP Pulse Ox 97.7 F 82 18 124/58 L 100 03/26/18 12:00 03/26/18 12:00 03/26/18 12:00 03/26/18 12:00 03/26/18 11:26 Intake and Output: 03/26/18 03/26/18 06:59 18:59 Output Total 1100 Balance -1100 - Medications Medications: Current Medications Al Hydrox/Mg Hydrox/Simethicone (Maalox Plus 30 Ml) 30 ml PO Q12 [facility] Last Admin: 03/26/18 10:38 Dose: 30 ml Albuterol/Ipratropium (Duoneb 3 Mg/0.5 Mg (3 Ml) Ud) 3 ml IH Q6H [facility] Last Admin: 03/26/18 13:26 Dose: 3 ml Aspirin (Ecotrin) 81 mg PO DAILY [facility] Last Admin: 03/26/18 10:36 Dose: 81 mg Atorvastatin Calcium (Lipitor) 20 mg PO DAILY [facility] Last Admin: 03/26/18 10:37 Dose: 20 mg Hydrochlorothiazide (Hydrodiuril) 25 mg PO DAILY [facility] Last Admin: 03/26/18 10:37 Dose: 25 mg Insulin Human Lispro (Humalog Low) 0 units SC ACHS [facility] PRN Reason: Protocol Last Admin: 03/26/18 12:49 Dose: Not Given Isosorbide Mononitrate (Imdur Er) 30 mg PO DAILY [facility] Last Admin: 03/26/18 10:37 Dose: 30 mg Levetiracetam (Keppra) 500 mg PO BID [facility] Last Admin: 03/26/18 10:37 Dose: 500 mg Levothyroxine Sodium (Synthroid) 25 mcg PO DAILY [facility] Last Admin: 03/26/18 10:37 Dose: 25 mcg Losartan Potassium (Cozaar) 100 mg PO DAILY [facility] Last Admin: 03/26/18 10:36 Dose: 100 mg Metoprolol Tartrate (Lopressor) 5 mg IVP Q6 PRN PRN Reason: Heart rate Pantoprazole Sodium (Protonix Ec Tab) 40 mg PO 0600 [facility] Last Admin: 03/26/18 05:59 Dose: 40 mg Tramadol HCl (Ultram) 50 mg PO TID PRN PRN Reason: Pain, Mild (1-3) Last Admin: 03/26/18 04:20 Dose: 50 mg Verapamil HCl (Calan Sr Tab) 240 mg PO DAILY [facility] Last Admin: 03/26/18 12:01 Dose: 240 mg - Labs Labs: 03/26/18 06:00 03/26/18 06:00 PT 11.2 SECONDS (9.4-12.5) 03/24/18 09:50 INR 0.97 03/24/18 09:50 APTT 24.8 Seconds (25.1-36.5) L 03/24/18 09:50 Attending/Attestation - Attestation I have personally seen and examined this patient.: Yes I have fully participated in the care of the patient.: Yes I have reviewed all pertinent clinical information, including history, physical exam and plan: Yes Notes (Text): 03/26/18 16:31 attending note; Patient seen and examined with resident. patient is alert and awake. Denies any chest pain, shortness of breath. denies any back pain. Patient had an episode of atrial fibrillation yesterday. Currently in normal sinus rhythm. Patient is a 82 year old female with stage 4 Lung Cancer(status post radiation therapy 2015) with metastasis to the spine (post radiation treatment to spine February 2017), COPD with home oxygen, HTN, hypothyroidism, seizures on Keppra presents to the ED after her family witnessed her having "stroke like symptoms" patient has brief of confusion and questionable aphasia. CT head is negative.Neurology evaluation appreciated. speech and swallow evaluation appreciated. Tolerating diet well. history of stage IV lung cancer; patient completed radiation therapy for spinal metastases. Refused chemotherapy. Follows up with Dr. Cortes as outpatient. Ambulates with walker at home. paroxysmal Atrial fibrillation ; EKG showed normal sinus rhythm today. Case discussed with custom designer in detail. Started on Eliquis. Echocardiogram showed normal ejection fraction. physical therapy evaluation appreciated. Subacute rehabilitation recommended. Pending authorization. Case discussed with case management social worker in detail. diagnosis and treatment option discussed with patient and patient's daughter in detail.
--- NOTE | 2018-03-26 09:26 | CP.PCM.PN ---
Subjective - Date & Time of Evaluation Date of Evaluation: 03/26/18 Time of Evaluation: 09:22 - Subjective Subjective: Michael Gonzalez PGY 2 Neurology Progress Note for Dr. Joe Patient was seen and examined at bedside. Yesterday, the patient was noted to be in AFib (new onset), and Cardiology was consulted and patient was started on therapeutic Lovenox. This morning, the patient is back in sinus rhythm and she has no complaints of shortness of breath, chest pain, any seizure like activity , confusion or focal weakness. she also denies dysuria, urgency or hematuria. she is able to get out of bed with assistance. Objective - Vital Signs/Intake and Output Vital Signs (last 24 hours): Temp Pulse Resp BP Pulse Ox 98.4 F 80 16 140/56 L 100 03/26/18 06:00 03/26/18 06:00 03/26/18 06:00 03/26/18 06:00 03/26/18 06:00 Intake and Output: 03/26/18 03/26/18 06:59 18:59 Output Total 1100 Balance -1100 - Medications Medications: Current Medications Al Hydrox/Mg Hydrox/Simethicone (Maalox Plus 30 Ml) 30 ml PO Q12 [facility] Last Admin: 03/25/18 23:19 Dose: 30 ml Albuterol/Ipratropium (Duoneb 3 Mg/0.5 Mg (3 Ml) Ud) 3 ml IH Q6H [facility] Last Admin: 03/26/18 07:34 Dose: 3 ml Aspirin (Ecotrin) 81 mg PO DAILY [facility] Last Admin: 03/25/18 09:22 Dose: 81 mg Atorvastatin Calcium (Lipitor) 20 mg PO DAILY [facility] Last Admin: 03/25/18 09:22 Dose: 20 mg Enoxaparin Sodium (Lovenox) 70 mg SC Q12H [facility] PRN Reason: Protocol Last Admin: 03/26/18 06:00 Dose: 70 mg Hydrochlorothiazide (Hydrodiuril) 25 mg PO DAILY [facility] Last Admin: 03/25/18 09:22 Dose: 25 mg Insulin Human Lispro (Humalog Low) 0 units SC ACHS [facility] PRN Reason: Protocol Last Admin: 03/25/18 23:07 Dose: Not Given Isosorbide Mononitrate (Imdur Er) 30 mg PO DAILY [facility] Last Admin: 03/25/18 09:23 Dose: 30 mg Levetiracetam (Keppra) 500 mg PO BID [facility] Last Admin: 03/25/18 17:35 Dose: 500 mg Levothyroxine Sodium (Synthroid) 25 mcg PO DAILY [facility] Last Admin: 03/25/18 09:22 Dose: 25 mcg Losartan Potassium (Cozaar) 100 mg PO DAILY [facility] Last Admin: 03/25/18 09:23 Dose: 100 mg Metoprolol Tartrate (Lopressor) 5 mg IVP Q6 PRN PRN Reason: Heart rate Pantoprazole Sodium (Protonix Ec Tab) 40 mg PO 0600 [facility] Last Admin: 03/26/18 05:59 Dose: 40 mg Tramadol HCl (Ultram) 50 mg PO TID PRN PRN Reason: Pain, Mild (1-3) Last Admin: 03/26/18 04:20 Dose: 50 mg Verapamil HCl (Calan Sr Tab) 240 mg PO DAILY [facility] Last Admin: 03/25/18 09:23 Dose: 240 mg - Labs Labs: 03/26/18 06:00 03/26/18 06:00 PT 11.2 SECONDS (9.4-12.5) 03/24/18 09:50 INR 0.97 03/24/18 09:50 APTT 24.8 Seconds (25.1-36.5) L 03/24/18 09:50 - Additional Findings Additional findings: - Constitutional Appears: Well, Non-toxic, No Acute Distress - Head Exam Head Exam: ATRAUMATIC, NORMAL INSPECTION, NORMOCEPHALIC - Eye Exam Eye Exam: EOMI, Normal appearance, PERRL Pupil Exam: NORMAL ACCOMODATION - ENT Exam ENT Exam: Mucous Membranes Moist - Neck Exam Neck Exam: Normal Inspection - Respiratory Exam Respiratory Exam: Clear to Ausculation Bilateral, NORMAL BREATHING PATTERN. absent: Rales, Rhonchi, Wheezes, Respiratory Distress - Cardiovascular Exam Cardiovascular Exam: RRR, +S1, +S2. absent: Murmur - GI/Abdominal Exam GI & Abdominal Exam: Soft, Normal Bowel Sounds. absent: Distended, Tenderness - Extremities Exam Extremities Exam: Full ROM, Normal Inspection. 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 CODE STROKE was called, but patient was not a candidate for tPA. Likely cause is seizure w/ post-ictal state vs UTI. Urine culture growing gram neg rods. Brain metastasis is possible, however , patient is refusing MRI at this time because she'd rather not know, despite education about risks including . Plan: Acute delerium, resolved - Continue Keppra 500 mg twice daily - PT/OT; recommending JOHN at discharge - out of bed w/ assistance - Seizure precautions - Neurochecks - MRI w/ and w/o ordered to r/o mets to brain; patient has refused - EEG ordered to r/o possible post-ictal state; done, pending official read - depending on EEG, patient might require increased dose of Keppra, but at this time, should continue 500mg BID - Further recs per Dr. Joe Case was reviewed and discussed with attending, Dr. Joe
[2018-03-26] MEDS: Insulin Lispro (humaLOG) LOW Coverage SC SCH ×4 (10:12→22:31)
[2018-03-26] MEDS: Levothyroxine 25 MCG TAB PO SCH (10:37)
[2018-03-26] MEDS: Alum-Mag Hydrox-Simethicone Susp (30 mL) PO SCH ×2 (10:38→21:13)
--- NOTE | 2018-03-26 11:46 | CP.PCM.CON ---
History of Present Illness - History of Present Illness History of Present Illness: Awake, alert, no distress Reason for consultation: Cardiac evaluation for new onset Atrial fibrillation Brief history of present illness: An 82 year old female who was admitted to the hospital due to stroke like symptoms. 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 A 12 lead EKG showed Atrial fibrillation controlled rate at 92/min. Non specific T wave abnormality. Seen and examined by me and Dr. Rich Review of Systems - Review of Systems All systems: reviewed and no additional remarkable complaints except Review of Systems: as per HPI Past Patient History - Infectious Disease Hx of Infectious Diseases: None - Past Social History Smoking Status: Former Smoker - CARDIAC Hx Hypertension: Yes - PULMONARY Hx Chronic Obstructive Pulmonary Disease (COPD): Yes - NEUROLOGICAL Hx Neurological Disorder: No - HEENT Hx Cataracts: Yes (Removed) - RENAL Hx Chronic Kidney Disease: No - ENDOCRINE/METABOLIC Hx Hypothyroidism: Yes - HEMATOLOGICAL/ONCOLOGICAL Hx Cancer: Yes (Lung) - INTEGUMENTARY Hx Dermatological Problems: No - MUSCULOSKELETAL/RHEUMATOLOGICAL Hx Falls: No Hx Unsteady Gait: Yes (uses walker) - GASTROINTESTINAL Hx Gastrointestinal Disorders: No - GENITOURINARY/GYNECOLOGICAL Hx Genitourinary Disorders: No - PSYCHIATRIC Hx Anxiety: Yes Hx Substance Use: No - SURGICAL HISTORY Hx Amputation: No Hx Appendectomy: No Hx Cholecystectomy: No Hx Gastric Bypass Surgery: No Hx Hysterectomy: No Hx Joint Replacement: No Hx Kidney Transplant: No Hx Liver Transplant: No Hx Mastectomy: No Hx Musculoskeletal Surgery: No Hx Open Heart Surgery: No Hx Orthopedic Surgery: No Hx Splenectomy: No Hx Valve Replacement: No Meds Allergies/Adverse Reactions: Allergies Allergy/AdvReac Type Severity Reaction Status Date / Time codeine Allergy ANAPHYLAXIS Verified 03/24/18 09:47 - Medications Medications: Current Medications Al Hydrox/Mg Hydrox/Simethicone (Maalox Plus 30 Ml) 30 ml PO Q12 [facility] Last Admin: 03/26/18 10:38 Dose: 30 ml Albuterol/Ipratropium (Duoneb 3 Mg/0.5 Mg (3 Ml) Ud) 3 ml IH Q6H [facility] Last Admin: 03/26/18 07:34 Dose: 3 ml Aspirin (Ecotrin) 81 mg PO DAILY [facility] Last Admin: 03/26/18 10:36 Dose: 81 mg Atorvastatin Calcium (Lipitor) 20 mg PO DAILY [facility] Last Admin: 03/26/18 10:37 Dose: 20 mg Enoxaparin Sodium (Lovenox) 70 mg SC Q12H [facility] PRN Reason: Protocol Last Admin: 03/26/18 06:00 Dose: 70 mg Hydrochlorothiazide (Hydrodiuril) 25 mg PO DAILY [facility] Last Admin: 03/26/18 10:37 Dose: 25 mg Insulin Human Lispro (Humalog Low) 0 units SC ACHS [facility] PRN Reason: Protocol Last Admin: 03/26/18 10:12 Dose: Not Given Isosorbide Mononitrate (Imdur Er) 30 mg PO DAILY [facility] Last Admin: 03/26/18 10:37 Dose: 30 mg Levetiracetam (Keppra) 500 mg PO BID [facility] Last Admin: 03/26/18 10:37 Dose: 500 mg Levothyroxine Sodium (Synthroid) 25 mcg PO DAILY [facility] Last Admin: 03/26/18 10:37 Dose: 25 mcg Losartan Potassium (Cozaar) 100 mg PO DAILY [facility] Last Admin: 03/26/18 10:36 Dose: 100 mg Metoprolol Tartrate (Lopressor) 5 mg IVP Q6 PRN PRN Reason: Heart rate Pantoprazole Sodium (Protonix Ec Tab) 40 mg PO 0600 [facility] Last Admin: 03/26/18 05:59 Dose: 40 mg Tramadol HCl (Ultram) 50 mg PO TID PRN PRN Reason: Pain, Mild (1-3) Last Admin: 03/26/18 04:20 Dose: 50 mg Verapamil HCl (Calan Sr Tab) 240 mg PO DAILY [facility] Last Admin: 03/25/18 09:23 Dose: 240 mg Physical Exam - Constitutional Appears: No Acute Distress - Eye Exam Eye Exam: Normal appearance - ENT Exam ENT Exam: Mucous Membranes Moist - Respiratory Exam Respiratory Exam: Decreased Breath Sounds, NORMAL BREATHING PATTERN - Cardiovascular Exam Cardiovascular Exam: +S1, +S2 - GI/Abdominal Exam GI & Abdominal Exam: Normal Bowel Sounds, Soft - Extremities Exam Extremities exam: Positive for: normal capillary refill - Neurological Exam Neurological exam: Alert, Oriented x3 - Psychiatric Exam Psychiatric exam: Normal Affect - Skin Skin Exam: Intact, Warm Results - Vital Signs Recent Vital Signs: Last Vital Signs Temp 98.4 F 03/26/18 06:00 Pulse 80 03/26/18 06:00 Resp 16 03/26/18 06:00 BP 140/56 L 03/26/18 06:00 Pulse Ox 100 03/26/18 06:00 - Labs Result Diagrams: 03/26/18 06:00 03/26/18 06:00 Labs: Laboratory Results - last 24 hr 03/25/18 03/25/18 03/25/18 11:18 16:07 21:30 WBC RBC Hgb Hct MCV MCH MCHC RDW Plt Count MPV Gran % Lymph % (Auto) Charles % (Auto) Eos % (Auto) Baso % (Auto) Gran # Lymph # (Auto) Charles # (Auto) Eos # (Auto) Baso # (Auto) Sodium Potassium Chloride Carbon Dioxide Anion Gap BUN Creatinine Est GFR ( Amer) Est GFR (Non-Af Amer) POC Glucose (mg/dL) 104 151 H 115 H Random Glucose Calcium Total Bilirubin AST ALT Alkaline Phosphatase Lactate Dehydrogenase Total Creatine Kinase Troponin I Total Protein Albumin Globulin Albumin/Globulin Ratio 03/26/18 03/26/18 03/26/18 06:00 06:00 07:05 WBC 11.0 RBC 3.81 Hgb 10.5 L Hct 33.2 L MCV 87.1 MCH 27.6 MCHC 31.6 RDW 17.1 H Plt Count 169 MPV 8.9 Gran % 78.9 H Lymph % (Auto) 8.2 L Charles % (Auto) 12.1 H Eos % (Auto) 0.7 L Baso % (Auto) 0.1 Gran # 8.69 H Lymph # (Auto) 0.9 L Charles # (Auto) 1.3 H Eos # (Auto) 0.1 Baso # (Auto) 0.01 Sodium 133 Potassium 4.1 Chloride 94 L Carbon Dioxide 34 H Anion Gap 9 L BUN 18 Creatinine 0.6 L Est GFR ( Amer) > 60 Est GFR (Non-Af Amer) > 60 POC Glucose (mg/dL) 99 Random Glucose 101 Calcium 9.7 Total Bilirubin 0.7 AST 14 D ALT 29 Alkaline Phosphatase 66 Lactate Dehydrogenase 314 L Total Creatine Kinase < 20 L Troponin I < 0.01 Total Protein 5.3 L Albumin 2.9 L Globulin 2.4 Albumin/Globulin Ratio 1.2 Assessment & Plan - Assessment and Plan (Free Text) Assessment: An 82 year old female who was admitted to the hospital due to stroke like symptoms. 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 12 lead EKG showed Atrial fibrillation controlled rate at 92/min. Non specific T wave abnormality. Cardiac consult was called for to evaluate new onset atrial fibrillation. Patient aymptomatic, denies chest pain or shortness of breath. Telemetry now NSR rate of 70/min. Review of previous cardiac work up: No cardiac work up done at [facility] Plan: Now on NSR at 70/min Repeat 12 lead EKG Started on Calan 240 mg daily On ASA 81 mg daily,Lipitor 20 mg daily,Hydrodiuril 25 mg daily, Imdur ER 30 mg daily, Synthroid 25 mcg daily, Cozaar 100 mg daily Calan 240 mg daily Neuro on consult, work up in progress Continue current medications Continue current treatment Will order ECHO to evaluate LV function Will reassess during hospital course if needed anticoagulation Will follow up Plan and treatment discussed with Dr. Rich Thank you Dr. Havrey for the opportunity of taking care of Ms. Julee Gallardo - Date & Time Date: 03/26/18 Time: 07:30
[2018-03-26] MEDS: Verapamil 240 mg ER Tab PO SCH (12:01)
--- NOTE | 2018-03-26 13:54 | CARD ---
APPROVED REPORT Date of service: 03/26/2018 EKG Measurement Heart [id number] ID [id number] <Conclusion> Sinus rhythm with premature atrial complexes Otherwise normal ECG
--- NOTE | 2018-03-26 14:15 | CARD ---
APPROVED REPORT Date of service: 03/26/2018 EXAM: Two-dimensional and M-mode echocardiogram with Doppler and color Doppler. INDICATION NEW A-FIB/LVFX 2D DIMENSIONS Left Atrium (2D)4.1 (1.6-4.0cm)IVSd1.3 (0.7-1.1cm) LVDd4.3 (3.9-5.9cm)PWd1.2 (0.7-1.1cm) LVDs3.1 (2.5-4.0cm)FS (%) 29.3 % LVEF (%)56.5 (>50%) M-Mode DIMENSIONS Aortic Root3.30 (2.2-3.7cm)Aortic Cusp Exc.1.50 (1.5-2.0cm) Aortic Valve AoV Peak Wlpbkrlm338.0cm/sAoV VTI31.0cmAO Peak GR.11mmHg LVOT Peak Epquvmbz187.0cm/sLVOT VTI20.60cmAO Mean GR.6mmHg Mitral Valve MV E Kzovwikh27.5cm/sMV A Iatxevtn02.3cm/sE/A ratio0.8 TDI Lateral E' Peak V6.34cm/sMedial E' Peak V4.68cm/sE/Lateral E'12.1 E/Medial E'16.3 Pulmonary Valve PV Peak Kpeucngs82.1cm/sPV Peak Grad.2mmHg Tricuspid Valve TR Peak Uunjujlk924ju/sRAP [id number] Peak Gr.40mmHg [id number] LEFT VENTRICLE The left ventricle is normal size. There is borderline concentric left ventricular hypertrophy. The left ventricular ejection fraction is within the normal range. Septal hypokinesis Transmitral Doppler flow pattern is Grade I-abnormal relaxation pattern. RIGHT VENTRICLE The right ventricle is normal size. There is normal right ventricular wall thickness. The right ventricular systolic function is normal. ATRIA The left atrium is borderline dilated. The right atrium size is normal. AORTIC VALVE The aortic valve is moderately sclerotic. MITRAL VALVE The mitral valve is mildly thickened. There is no mitral valve regurgitation noted. There is no mitral valve stenosis. TRICUSPID VALVE The tricuspid valve is normal in structure. There is mild tricuspid regurgitation. There is moderate pulmonary hypertension. PULMONIC VALVE The pulmonary valve is normal in structure. There is trace pulmonic valvular regurgitation. GREAT VESSELS The aortic root is normal in size. PERICARDIAL EFFUSION There is a small-moderate loculated anterior pericardial effusion. <Conclusion> The left ventricle is normal size. There is borderline concentric left ventricular hypertrophy. The left ventricular ejection fraction is within the normal range. Septal hypokinesis Transmitral Doppler flow pattern is Grade I-abnormal relaxation pattern. The aortic valve is moderately sclerotic. There is mild tricuspid regurgitation. There is moderate pulmonary hypertension. There is a small-moderate loculated anterior pericardial effusion.
[2018-03-27] MEDS: Albuterol-Ipratrop 3 mg / 0.5 (3 ml) UD IH SCH ×4 (01:22→20:10)
[2018-03-27] MEDS: Pantoprazole 40 mg EC Tab PO SCH (05:17)
[2018-03-27 06:25] VITALS: O2SAT 98
[2018-03-27 07:07] LABS: BASO # 0.01 K/mm3 (0.0-2.0); BASO % 0.1 % (0.0-3.0); EOS # 0.2 (0.0-0.7); EOS % 2.3 % (1.5-5.0); GRAN # 8.09 (1.4-6.5); LYMPH # 1.1 (1.2-3.4); LYMPH % 10.9 % (22.0-35.0); MEAN CELL VOLUME 87.3 fl (80.0-105.0); MEAN CORPUSCULAR HEMOGLOBIN 27.7 pg (25.0-35.0); MEAN CORPUSCULAR HGB CONC 31.7 g/dl (31.0-37.0); MEAN PLATELET VOLUME 9.2 fl (7.0-11.0); MONO # 0.8 (0.1-0.6); MONO % 7.7 % (1.0-6.0); RBC 3.61 10^6/uL (3.5-6.1); RED CELL DISTRIBUTION WIDTH 17.1 % (11.5-14.5); WHITE BLOOD COUNT 10.3 10^3/ul (4.5-11.0)
[2018-03-27 07:43] LABS: ALB/GLOB RATIO 1.1 (1.1-1.8); ALBUMIN 2.7 g/dL (3.0-4.8); ALT/SGPT 34 U/L (7-56); AST/SGOT 15 U/L (14-36); BLOOD UREA NITROGEN 14 mg/dL (7-21); CALCIUM 8.7 mg/dL (8.4-10.5); GFR AFRICAN-AMERICAN > 60; GFR NON-AFRICAN AMERICAN > 60
--- NOTE | 2018-03-27 07:53 | CP.PCM.PN ---
<Demetris Kearney - Last Filed: 03/27/18 15:28> Subjective - Date & Time of Evaluation Date of Evaluation: 03/27/18 Time of Evaluation: 07:49 - Subjective Subjective: Demetris Kearney PGY1 Internal Medicine Progress Note for Dr. Harvey 82F seen and evaluated at bedside this morning. No acute events overnight. On telemetry, normal sinus rhythm overnight. No complaints this morning except for mild left leg pain which was relieved by a dose of Tramadol overnight. She is not able to ambulate. Tolerating her diet. Denies fever, chills, nausea, vomiting, diarrhea, shortness of breath, headache, dizziness, cough, chest pain , palpitations, or urinary symptoms. Objective - Vital Signs/Intake and Output Vital Signs (last 24 hours): Temp Pulse Resp BP Pulse Ox 98.0 F 73 20 156/61 H 98 03/27/18 06:00 03/27/18 06:00 03/27/18 06:00 03/27/18 06:00 03/27/18 06:00 Intake and Output: 03/27/18 03/27/18 06:59 18:59 Intake Total 420 Output Total 500 Balance -80 - Medications Medications: Current Medications Al Hydrox/Mg Hydrox/Simethicone (Maalox Plus 30 Ml) 30 ml PO Q12 [facility] Last Admin: 03/26/18 21:13 Dose: 30 ml Albuterol/Ipratropium (Duoneb 3 Mg/0.5 Mg (3 Ml) Ud) 3 ml IH Q6H [facility] Last Admin: 03/27/18 01:22 Dose: 3 ml Aspirin (Ecotrin) 81 mg PO DAILY [facility] Last Admin: 03/26/18 10:36 Dose: 81 mg Atorvastatin Calcium (Lipitor) 20 mg PO DAILY [facility] Last Admin: 03/26/18 10:37 Dose: 20 mg Hydrochlorothiazide (Hydrodiuril) 25 mg PO DAILY [facility] Last Admin: 03/26/18 10:37 Dose: 25 mg Insulin Human Lispro (Humalog Low) 0 units SC ACHS [facility] PRN Reason: Protocol Last Admin: 03/26/18 22:31 Dose: Not Given Isosorbide Mononitrate (Imdur Er) 30 mg PO DAILY [facility] Last Admin: 03/26/18 10:37 Dose: 30 mg Levetiracetam (Keppra) 500 mg PO BID [facility] Last Admin: 03/26/18 18:10 Dose: 500 mg Levothyroxine Sodium (Synthroid) 25 mcg PO DAILY [facility] Last Admin: 03/26/18 10:37 Dose: 25 mcg Losartan Potassium (Cozaar) 100 mg PO DAILY [facility] Last Admin: 03/26/18 10:36 Dose: 100 mg Metoprolol Tartrate (Lopressor) 5 mg IVP Q6 PRN PRN Reason: Heart rate Pantoprazole Sodium (Protonix Ec Tab) 40 mg PO 0600 [facility] Last Admin: 03/27/18 05:17 Dose: 40 mg Tramadol HCl (Ultram) 50 mg PO TID PRN PRN Reason: Pain, Mild (1-3) Last Admin: 03/26/18 18:07 Dose: 50 mg Verapamil HCl (Calan Sr Tab) 240 mg PO DAILY [facility] Last Admin: 03/26/18 12:01 Dose: 240 mg - Labs Labs: 03/27/18 06:30 03/27/18 06:30 PT 11.2 SECONDS (9.4-12.5) 03/24/18 09:50 INR 0.97 03/24/18 09:50 APTT 24.8 Seconds (25.1-36.5) L 03/24/18 09:50 - Constitutional Appears: Well, Non-toxic, No Acute Distress - Head Exam Head Exam: ATRAUMATIC, NORMAL INSPECTION, NORMOCEPHALIC - Eye Exam Eye Exam: EOMI, PERRL - ENT Exam ENT Exam: Mucous Membranes Moist - Respiratory Exam Respiratory Exam: Clear to Ausculation Bilateral, NORMAL BREATHING PATTERN - Cardiovascular Exam Cardiovascular Exam: REGULAR RHYTHM, +S1, +S2. absent: Murmur - GI/Abdominal Exam GI & Abdominal Exam: Soft, Normal Bowel Sounds. absent: Tenderness - Neurological Exam Neurological Exam: Alert, Awake, Oriented x3 - Psychiatric Exam Psychiatric exam: Normal Affect, Normal Mood Assessment and Plan - Assessment and Plan (Free Text) Assessment: 82 year old female with stage 4 Lung Cancer (status post radiation therapy 2015 ) with metastasis to the spine (post radiation treatment to spine February 2017), COPD with home oxygen, HTN, hypothyroidism, seizures on Keppra admitted for suspected TIA. Plan: 1. Acute Delirium vs. Seizure -Head CT: No intracranial mass, hemorrhage or evidence of acute infarct. Mild chronic sphenoid sinusitis. Minimal left mastoid effusion, nonspecific. -Patient continues to refuse an MRI of the brain -EEG negative -Neurology consulted, Dr. Garcia/Heath, recommendations appreciated -Continue Keppra 500mg BID -Continue home Aspirin and Lipitor -Seizure precautions -Fall precautions -PT recommends JOHN 2. New Onset Atrial Fibrillation - Patient may have paroxysmal atrial fibrillation that was a precursor to her presenting symptoms in the ED - Cardiology consulted - Dr. Rich: Repeat 12 lead EKG pending, started on Calan 240 mg daily - ECHO: Moderate concentric left ventricular hypertrophy, EF 56%, mild pulmonary hypertension, small pericardial effusion - Telemetry: normal sinus rhythm overnight - Because ECHO showed small pericardial effusion and patients unsteady gait/ high risk of fall, decision was made to not start her on anticoagulation 3. HTN -Continue home medications -Continue to monitor 4. COPD -Pulmicort PRN -Oxygen (Nasal Canula) 5. Hypothyroidism -Continue home synthroid -TSH 2.46 6. 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 Daughter interested in facility in [place]. Plan discussed with Dr. Harvey. Demetris Kearney PGY1 <Inge Harvey - Last Filed: 03/28/18 13:30> Objective - Vital Signs/Intake and Output Vital Signs (last 24 hours): Temp Pulse Resp BP Pulse Ox 98.4 F 87 20 90/52 L 98 03/27/18 17:37 03/27/18 17:37 03/27/18 17:37 03/27/18 17:37 03/27/18 06:00 - Labs Labs: 03/27/18 06:30 03/27/18 06:30 PT 11.2 SECONDS (9.4-12.5) 03/24/18 09:50 INR 0.97 03/24/18 09:50 APTT 24.8 Seconds (25.1-36.5) L 03/24/18 09:50 Attending/Attestation - Attestation I have personally seen and examined this patient.: Yes I have fully participated in the care of the patient.: Yes I have reviewed all pertinent clinical information, including history, physical exam and plan: Yes Notes (Text): 03/28/18 13:28 attending note; Patient seen and examined with resident. patient is alert and awake. Denies any chest pain, shortness of breath. denies any back pain. Patient is a 82 year old female with stage 4 Lung Cancer(status post radiation therapy 2015) with metastasis to the spine (post radiation treatment to spine February 2017), COPD with home oxygen, HTN, hypothyroidism, seizures on Keppra presents to the ED after her family witnessed her having "stroke like symptoms" patient has brief of confusion and questionable aphasia. CT head is negative.Neurology evaluation appreciated. speech and swallow evaluation appreciated. Tolerating diet well. history of stage IV lung cancer; patient completed radiation therapy for spinal metastases. Refused chemotherapy. Follows up with Dr. Cortes as outpatient. Ambulates with walker at home. paroxysmal Atrial fibrillation ; EKG showed normal sinus rhythm today. Case discussed with rotary shear operator in detail. Eliquis stopped. on aspirin. Echocardiogram showed normal ejection fraction. physical therapy evaluation appreciated. Subacute rehabilitation recommended. Pending authorization. Case discussed with case specialist in detail. diagnosis and treatment option discussed with patient and patient's daughter in detail.
[2018-03-27] MEDS: Insulin Lispro (humaLOG) LOW Coverage SC SCH ×3 (08:29→17:48)
[2018-03-27] MEDS: Alum-Mag Hydrox-Simethicone Susp (30 mL) PO SCH (10:25)
[2018-03-27] MEDS: Verapamil 240 mg ER Tab PO SCH (10:30)
[2018-03-27] MEDS: Levothyroxine 25 MCG TAB PO SCH (10:34)
--- NOTE | 2018-03-27 12:53 | CP.PCM.PCO ---
Addendum Addendum: EEG was reviewed with Dr. Joe and showed no epileptic activity. Please continue current dose of Keppra.
--- NOTE | 2018-03-27 14:34 | PN ---
Copied To: Treasure Rich MD Attending MD: Treasure Rich MD DATE: 03/27/2018 OBJECTIVE: GENERAL: Not in apparent distress. VITAL SIGNS: Temperature afebrile, heart rate heart rate 79, blood pressure 156/61. HEENT: PERRLA, intact. NECK: Supple. No carotid bruit. No thyromegaly. CHEST: Clear to auscultation. HEART: S1 and S2 regular. ABDOMEN: Soft. EXTREMITIES: Clubbing and cyanosis negative. LABORATORY DATA: Blood workup as follows: WBC 10.3, hemoglobin 10, hematocrit 31.5, platelet count 161. Chemistry shows sodium 133, potassium 4.2, chloride 96, carbon dioxide 34, anion gap 7, BUN 14, creatinine 0.7, total protein 5.1, albumin , albumin and globulin ratio 1.1. EKG repeated yesterday. The patient is back to normal sinus. The patient had echocardiography done yesterday that showed LV hypertrophy, normal ejection fraction, calculated ejection fraction 55%. Moderate aortic sclerosis. Mild tricuspid regurgitation. Right ventricular systolic pressure of 50. Small loculated anterior pericardial effusion noted. IMPRESSION: An 82-year-old female with past medical history of lung carcinoma stage IV, radiation with metastasis to the spine radiation; chronic obstructive pulmonary disease, on home oxygen; hypertension; hypothyroidism; seizure disorder. Admitting EKG, atrial fibrillation. Because of the overall setup, the patient is high risk for pulmonary embolism as well. Eliquis was started, but after because of the localized pericardial effusion, Eliquis discontinued. Since the patient is converted to normal sinus and also, the patient has unsteady gait, we will hold anticoagulation. We will discuss with the resident taking care of this. For now, continue verapamil 240 mg daily. Continue losartan. Continue isosorbide dinitrate. No evidence of acute myocardial infarction. We will follow with you. Thank you, Dr. Harvey, for providing us the opportunity in taking care of the patient, Julee Gallardo. Treasure Rich MD [facility] # [id number]
--- NOTE | 2018-03-27 15:51 | CP.PCM.DIS ---
<Demetris Kearney - Last Filed: 03/29/18 17:42> Provider - Provider Date of Admission: 03/24/18 11:38 Attending physician: Inge Harvey MD Primary care physician: Miriam Payne MD Consults: Cardiology - Dr. Rich Neurology - Dr. Joe Time Spent in preparation of Discharge (in minutes): 100 Hospital Course - Lab Results Lab Results: Micro Results 03/24/18 17:13 Blood-Venous Blood Culture - Preliminary NO GROWTH AFTER 48 HOURS 03/24/18 17:13 Blood-Venous Blood Culture - Preliminary NO GROWTH AFTER 48 HOURS 03/24/18 17:15 Urine,Clean Catch Urine Culture - Final Gram Negative Jack Most Recent Lab Values WBC 10.3 10^3/ul (4.5-11.0) 03/27/18 06:30 RBC 3.61 10^6/uL (3.5-6.1) 03/27/18 06:30 Hgb 10.0 g/dL (12.0-16.0) L 03/27/18 06:30 Hct 31.5 % (36.0-48.0) L 03/27/18 06:30 MCV 87.3 fl (80.0-105.0) 03/27/18 06:30 MCH 27.7 pg (25.0-35.0) 03/27/18 06:30 MCHC 31.7 g/dl (31.0-37.0) 03/27/18 06:30 RDW 17.1 % (11.5-14.5) H 03/27/18 06:30 Plt Count 161 10^3/uL (120.0-450.0) 03/27/18 06:30 MPV 9.2 fl (7.0-11.0) 03/27/18 06:30 Gran % 79.0 % (50.0-68.0) H 03/27/18 06:30 Lymph % (Auto) 10.9 % (22.0-35.0) L 03/27/18 06:30 [place] % (Auto) 7.7 % (1.0-6.0) H 03/27/18 06:30 Eos % (Auto) 2.3 % (1.5-5.0) 03/27/18 06:30 Baso % (Auto) 0.1 % (0.0-3.0) 03/27/18 06:30 Gran # 8.09 (1.4-6.5) H 03/27/18 06:30 Lymph # (Auto) 1.1 (1.2-3.4) L 03/27/18 06:30 [place] # (Auto) 0.8 (0.1-0.6) H 03/27/18 06:30 Eos # (Auto) 0.2 (0.0-0.7) 03/27/18 06:30 Baso # (Auto) 0.01 K/mm3 (0.0-2.0) 03/27/18 06:30 PT 11.2 SECONDS (9.4-12.5) 03/24/18 09:50 INR 0.97 03/24/18 09:50 APTT 24.8 Seconds (25.1-36.5) L 03/24/18 09:50 Sodium 133 mmol/L (132-148) 03/27/18 06:30 Potassium 4.1 mmol/L (3.6-5.0) 03/27/18 06:30 Chloride 96 mmol/L (98-107) L 03/27/18 06:30 Carbon Dioxide 34 mmol/L (21-33) H 03/27/18 06:30 Anion Gap 7 (10-20) L 03/27/18 06:30 BUN 14 mg/dL (7-21) 03/27/18 06:30 Creatinine 0.7 mg/dl (0.7-1.2) 03/27/18 06:30 Est GFR ( Amer) > 60 03/27/18 06:30 Est GFR (Non-Af Amer) > 60 03/27/18 06:30 POC Glucose (mg/dL) 90 mg/dL (65-110) 03/27/18 11:34 Random Glucose 91 mg/dL (70-110) 03/27/18 06:30 Hemoglobin A1c 5.7 % (4.2-6.5) 03/24/18 09:50 Calcium 8.7 mg/dL (8.4-10.5) 03/27/18 06:30 Total Bilirubin 0.5 mg/dL (0.2-1.3) 03/27/18 06:30 AST 15 U/L (14-36) 03/27/18 06:30 ALT 34 U/L (7-56) 03/27/18 06:30 Alkaline Phosphatase 66 U/L (38-126) 03/27/18 06:30 Lactate Dehydrogenase 314 U/L (333-699) L 03/26/18 06:00 Total Creatine Kinase < 20 U/L (35-230) L 03/26/18 06:00 Troponin I < 0.01 ng/mL 03/26/18 06:00 Total Protein 5.1 g/dL (5.8-8.3) L 03/27/18 06:30 Albumin 2.7 g/dL (3.0-4.8) L 03/27/18 06:30 Globulin 2.4 gm/dL 03/27/18 06:30 Albumin/Globulin Ratio 1.1 (1.1-1.8) 03/27/18 06:30 Triglycerides 105 mg/dL (35-160) 03/25/18 06:30 Cholesterol 140 mg/dL (130-200) 03/25/18 06:30 LDL Cholesterol Direct 61 mg/dL (0-129) 03/25/18 06:30 HDL Cholesterol 62 mg/dL (29-60) H 03/25/18 06:30 TSH 3rd Generation 2.46 mIU/mL (0.46-4.68) 03/24/18 09:50 Urine Color Yellow (YELLOW) 03/24/18 17:15 Urine Appearance Clear (CLEAR) 03/24/18 17:15 Urine pH 8.5 (4.7-8.0) 03/24/18 17:15 Ur Specific [place] 1.015 (1.005-1.035) 03/24/18 17:15 Urine Protein Negative mg/dL (<30 mg/dL) 03/24/18 17:15 Urine Glucose (UA) Negative mg/dL (NEGATIVE) 03/24/18 17:15 Urine Ketones Negative mg/dL (NEGATIVE) 03/24/18 17:15 Urine Blood Negative (NEGATIVE) 03/24/18 17:15 Urine Nitrate Negative (NEGATIVE) 03/24/18 17:15 Urine Bilirubin Negative (NEGATIVE) 03/24/18 17:15 Urine Urobilinogen 0.2 E.U./dL (<1 E.U./dL) 03/24/18 17:15 Ur Leukocyte Esterase Trace [place]/uL (NEGATIVE) H 03/24/18 17:15 Urine RBC Negative /hpf (0-2) 03/24/18 17:15 Urine WBC 0 - 2 /hpf (0-6) 03/24/18 17:15 Ur Epithelial Cells 0 - 2 /hpf (0-5) 03/24/18 17:15 Amorphous Sediment Small 03/24/18 17:15 - Hospital Course Hospital Course: 82 year old female with past medical history of 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 In the emergency department, code stroke was called. Initial NIHSS score was 4. Head CT was negative for an acute bleed. Chest X-ray showed a small pleural effusion. EKG showed a normal sinus rhythm with first degree AV block. Troponins were negative. Aspirin was given. Seizure and fall precautions were inititiated. No focal neurological deficits were appreciated. Neurology was consulted and recommended MRI of the brain and EEG. Patient refused an MRI during her entire admission. EEG was read on 03/27/18 and was negative. Neurology reommended to continue her current Keppra dosage. Physical therapy evaluated her and recommended a subacute rehab. On 03/26/18, patient had an episode of atrial fibrillation overnight that converted to normal sinus rhythm and remained in normal sinus for the duration of her admission. Cardiology was consulted. ECHO of the heart showed and EF of 56% and a small pericardial effusion. Because of the effusion and unsteady gait/high risk of fall, patient was not started on anticoagulation therapy. Of note, patient refuses any treatment pertaining to the lung malignancy. Home medications for COPD, HTN, seizures, and hypothyroidism were continued. Patient tolerated diet. GI and DVT prophylaxis was administered. On 03/27/18 patient was accepted and was discharged to subacute rehab for further treatment. - Date & Time of H&P Date of H&P: 03/24/18 Time of H&P: 12:55 Discharge Exam - Head Exam Head Exam: ATRAUMATIC, NORMAL INSPECTION, NORMOCEPHALIC - Eye Exam Eye Exam: EOMI, Normal appearance - Respiratory Exam Respiratory Exam: Clear to PA & Lateral, NORMAL BREATHING PATTERN. absent: Respiratory Distress - Cardiovascular Exam Cardiovascular Exam: REGULAR RHYTHM, +S1, +S2. absent: Systolic Murmur - GI/Abdominal Exam GI & Abdominal Exam: Normal Bowel Sounds, Soft. absent: Tenderness - Neurological Exam Neurological exam: Alert, CN II-XII Intact, Oriented x3 - Psychiatric Exam Psychiatric exam: Normal Affect, Normal Mood - Skin Skin Exam: Dry, Intact, Normal Color, Warm Discharge Plan - Follow Up Plan Condition: STABLE Disposition: TRANSF TO SNF Instructions: Transient Ischemic Attack, Heart Healthy Diet, Soft Diet Additional Instructions: Please follow up with your primary medical doctor, Dr. Palomino within 3-5 days. Please follow up with your radiation Oncologist, Dr Wellington, as scheduled. Please follow up with your oncologist, Dr. Cortes, as scheduled. Upon discharge, please continue your home medications as prescribed. If symptoms reoccur please return to the emergency department. Discharge to [facility] - for strengthening and physical therapy. Please call for assistance to reduce your risk of falls and please utilize a walker for assistance with ambulation. Patient states she is up to date with regards to the flu and the pneumococcal vaccines. Diet: Heart Healthy, soft and thin liquid diet Referrals: Miriam Payne MD [Primary Care Provider] - <Inge Harvey - Last Filed: 03/29/18 18:35> Provider - Provider Date of Admission: 03/24/18 11:38 Attending physician: Inge Harvey MD Primary care physician: Miriam Payne MD Hospital Course - Lab Results Lab Results: Micro Results 03/24/18 17:13 Blood-Venous Blood Culture - Final NO GROWTH AFTER 5 DAYS 03/24/18 17:13 Blood-Venous Gram Stain - Final TEST NOT PERFORMED 03/24/18 17:13 Blood-Venous Blood Culture - Final NO GROWTH AFTER 5 DAYS 03/24/18 17:13 Blood-Venous Gram Stain - Final TEST NOT PERFORMED 03/24/18 17:15 Urine,Clean Catch Urine Culture - Final Gram Negative Jack Most Recent Lab Values WBC 10.3 10^3/ul (4.5-11.0) 03/27/18 06:30 RBC 3.61 10^6/uL (3.5-6.1) 03/27/18 06:30 Hgb 10.0 g/dL (12.0-16.0) L 03/27/18 06:30 Hct 31.5 % (36.0-48.0) L 03/27/18 06:30 MCV 87.3 fl (80.0-105.0) 03/27/18 06:30 MCH 27.7 pg (25.0-35.0) 03/27/18 06:30 MCHC 31.7 g/dl (31.0-37.0) 03/27/18 06:30 RDW 17.1 % (11.5-14.5) H 03/27/18 06:30 Plt Count 161 10^3/uL (120.0-450.0) 03/27/18 06:30 MPV 9.2 fl (7.0-11.0) 03/27/18 06:30 Gran % 79.0 % (50.0-68.0) H 03/27/18 06:30 Lymph % (Auto) 10.9 % (22.0-35.0) L 03/27/18 06:30 [place] % (Auto) 7.7 % (1.0-6.0) H 03/27/18 06:30 Eos % (Auto) 2.3 % (1.5-5.0) 03/27/18 06:30 Baso % (Auto) 0.1 % (0.0-3.0) 03/27/18 06:30 Gran # 8.09 (1.4-6.5) H 03/27/18 06:30 Lymph # (Auto) 1.1 (1.2-3.4) L 03/27/18 06:30 [place] # (Auto) 0.8 (0.1-0.6) H 03/27/18 06:30 Eos # (Auto) 0.2 (0.0-0.7) 03/27/18 06:30 Baso # (Auto) 0.01 K/mm3 (0.0-2.0) 03/27/18 06:30 PT 11.2 SECONDS (9.4-12.5) 03/24/18 09:50 INR 0.97 03/24/18 09:50 APTT 24.8 Seconds (25.1-36.5) L 03/24/18 09:50 Sodium 133 mmol/L (132-148) 03/27/18 06:30 Potassium 4.1 mmol/L (3.6-5.0) 03/27/18 06:30 Chloride 96 mmol/L (98-107) L 03/27/18 06:30 Carbon Dioxide 34 mmol/L (21-33) H 03/27/18 06:30 Anion Gap 7 (10-20) L 03/27/18 06:30 BUN 14 mg/dL (7-21) 03/27/18 06:30 Creatinine 0.7 mg/dl (0.7-1.2) 03/27/18 06:30 Est GFR ( Amer) > 60 03/27/18 06:30 Est GFR (Non-Af Amer) > 60 03/27/18 06:30 POC Glucose (mg/dL) 90 mg/dL (65-110) 03/27/18 11:34 Random Glucose 91 mg/dL (70-110) 03/27/18 06:30 Hemoglobin A1c 5.7 % (4.2-6.5) 03/24/18 09:50 Calcium 8.7 mg/dL (8.4-10.5) 03/27/18 06:30 Total Bilirubin 0.5 mg/dL (0.2-1.3) 03/27/18 06:30 AST 15 U/L (14-36) 03/27/18 06:30 ALT 34 U/L (7-56) 03/27/18 06:30 Alkaline Phosphatase 66 U/L (38-126) 03/27/18 06:30 Lactate Dehydrogenase 314 U/L (333-699) L 03/26/18 06:00 Total Creatine Kinase < 20 U/L (35-230) L 03/26/18 06:00 Troponin I < 0.01 ng/mL 03/26/18 06:00 Total Protein 5.1 g/dL (5.8-8.3) L 03/27/18 06:30 Albumin 2.7 g/dL (3.0-4.8) L 03/27/18 06:30 Globulin 2.4 gm/dL 03/27/18 06:30 Albumin/Globulin Ratio 1.1 (1.1-1.8) 03/27/18 06:30 Triglycerides 105 mg/dL (35-160) 03/25/18 06:30 Cholesterol 140 mg/dL (130-200) 03/25/18 06:30 LDL Cholesterol Direct 61 mg/dL (0-129) 03/25/18 06:30 HDL Cholesterol 62 mg/dL (29-60) H 03/25/18 06:30 TSH 3rd Generation 2.46 mIU/mL (0.46-4.68) 03/24/18 09:50 Urine Color Yellow (YELLOW) 03/24/18 17:15 Urine Appearance Clear (CLEAR) 03/24/18 17:15 Urine pH 8.5 (4.7-8.0) 03/24/18 17:15 Ur Specific [place] 1.015 (1.005-1.035) 03/24/18 17:15 Urine Protein Negative mg/dL (<30 mg/dL) 03/24/18 17:15 Urine Glucose (UA) Negative mg/dL (NEGATIVE) 03/24/18 17:15 Urine Ketones Negative mg/dL (NEGATIVE) 03/24/18 17:15 Urine Blood Negative (NEGATIVE) 03/24/18 17:15 Urine Nitrate Negative (NEGATIVE) 03/24/18 17:15 Urine Bilirubin Negative (NEGATIVE) 03/24/18 17:15 Urine Urobilinogen 0.2 E.U./dL (<1 E.U./dL) 03/24/18 17:15 Ur Leukocyte Esterase Trace [place]/uL (NEGATIVE) H 03/24/18 17:15 Urine RBC Negative /hpf (0-2) 03/24/18 17:15 Urine WBC 0 - 2 /hpf (0-6) 03/24/18 17:15 Ur Epithelial Cells 0 - 2 /hpf (0-5) 03/24/18 17:15 Amorphous Sediment Small 03/24/18 17:15 Attending/Attestation - Attestation I have personally seen and examined this patient.: Yes I have fully participated in the care of the patient.: Yes I have reviewed all pertinent clinical information, including history, physical exam and plan: Yes Notes (Text): 03/29/18 18:34 attending note; Patient seen and examined with resident. patient is alert and awake. Denies any chest pain, shortness of breath. denies any back pain. Patient is a 82 year old female with stage 4 Lung Cancer(status post radiation therapy 2015) with metastasis to the spine (post radiation treatment to spine February 2017), COPD with home oxygen, HTN, hypothyroidism, seizures on Keppra presents to the ED after her family witnessed her having "stroke like symptoms" patient has brief of confusion and questionable aphasia. CT head is negative.Neurology evaluation appreciated. speech and swallow evaluation appreciated. Tolerating diet well. history of stage IV lung cancer; patient completed radiation therapy for spinal metastases. Refused chemotherapy. Follows up with Dr. Cortes as outpatient. Ambulates with walker at home. paroxysmal Atrial fibrillation ; EKG showed normal sinus rhythm today. Case discussed with farmworker fruit in detail. on aspirin. Echocardiogram showed normal ejection fraction with small pericardial effusion. physical therapy evaluation appreciated. Subacute rehabilitation recommended. transfer to rehabilitation today. Case discussed with senior case manager in detail. diagnosis and treatment option discussed with patient and patient's daughter in detail.
[2018-03-27 17:38] VITALS: BP 90/52; PULSE 87; RESP 20; TEMP 98.4
== END 2018-03-27 21:16 | DRG 101 ==
LOC: ED 09:33 → ERH 11:38 → 2RSO 15:20
PROVIDERS: ADMIT Internal Medicine; ATTEND Internal Medicine
DX: G40.89 Other seizures (principal); C79.51 Secondary malignant neoplasm of bone; I31.3 Pericardial effusion (noninflammatory); J90 Pleural effusion, not elsewhere classified; I10 Essential (primary) hypertension; J44.9 Chronic obstructive pulmonary disease, unspecified; I48.0 Paroxysmal atrial fibrillation; E78.5 Hyperlipidemia, unspecified; E03.9 Hypothyroidism, unspecified; E78.00 Pure hypercholesterolemia, unspecified; I44.0 Atrioventricular block, first degree; R41.0 Disorientation, unspecified; I27.20 Pulmonary hypertension, unspecified; J32.3 Chronic sphenoidal sinusitis; Z88.5 Allergy status to narcotic agent; Z85.118 Personal history of other malignant neoplasm of bronchus and lung; Z79.82 Long term (current) use of aspirin; Z92.3 Personal history of irradiation; Z87.891 Personal history of nicotine dependence; Z99.81 Dependence on supplemental oxygen

== ENCOUNTER 2018-05-02 21:39 | Inpatient (IN) | payer MEDICARE, BC ==
[2018-05-02 22:07] VITALS: BMI 24.0
--- NOTE | 2018-05-02 22:30 | ED PDOC ---
Arrival/HPI - General Chief Complaint: Shortness Of Breath Time Seen by Provider: 05/02/18 21:50 Historian: Patient - History of Present Illness Narrative History of Present Illness (Text): 05/02/18 22:26 An 82 year old female, whose past medical history includes Stage 3 Lung CA, is [facility] department [facility] for a complaint of 1 day duration, worsening shortness of breath. As per patient's daughters, the patient is unaware of her CA diagnosis. The patient denies fevers, chills, headache, dizziness, sore throat, cough, chest pain, dyspnea on exertion, abdominal pain, nausea, vomiting, diarrhea, neck/back pain, urinary/bowel changes or any other complaint. PMD: Dr. Palomino Time/Duration: Other (1 day) Symptom Onset: Sudden Symptom Course: Unchanged Activities at Onset: Rest, Light Context: Home Past Medical History - Provider Review Nursing Documentation Reviewed: Yes - Infectious Disease Hx of Infectious Diseases: None - Cardiac Hx Hypertension: Yes - Pulmonary Hx Chronic Obstructive Pulmonary Disease (COPD): Yes - Neurological Hx Neurological Disorder: No - HEENT Hx Cataracts: Yes (Removed) - Renal Hx Renal Disorder: No - Endocrine/Metabolic Hx Hypothyroidism: Yes - Hematological/Oncological Hx Cancer: Yes (Lung) - Integumentary Hx Dermatological Disorder: No - Musculoskeletal/Rheumatological Hx Falls: No Hx Unsteady Gait: Yes (uses walker) - Gastrointestinal Hx Gastrointestinal Disorders: No - Genitourinary/Gynecological Hx Genitourinary Disorders: No - Psychiatric Hx Anxiety: Yes Hx Substance Use: No - Surgical History Hx Amputation: No Hx Appendectomy: No Hx Cholecystectomy: No Hx Gastric Bypass Surgery: No Hx Hysterectomy: No Hx Joint Replacement: No Hx Kidney Transplant: No Hx Liver Transplant: No Hx Mastectomy: No Hx Musculoskeletal Surgery: No Hx Open Heart Surgery: No Hx Orthopedic Surgery: No Hx Splenectomy: No Hx Valve Replacement: No Family/Social History - Physician Review Nursing Documentation Reviewed: Yes Family/Social History: No Known Family HX Smoking Status: Former Smoker Hx Alcohol Use: No Hx Substance Use: No Allergies/Home Meds Allergies/Adverse Reactions: Allergies codeine Allergy (Verified 05/02/18 21:47) ANAPHYLAXIS Home Medications: Home Meds Medication Instructions Recorded Confirmed Aspirin [Ecotrin] 81 mg PO DAILY 09/22/17 05/02/18 Atorvastatin [Lipitor] 20 mg PO DAILY 09/22/17 05/02/18 Isosorbide Mononitrate [Isosorbide 30 mg PO DAILY 09/22/17 05/02/18 Mononitrate ER] Levetiracetam [Roweepra] 500 mg PO BID 09/22/17 05/02/18 Levothyroxine [Synthroid] 25 mcg PO DAILY 09/22/17 05/02/18 Losartan/Hydrochlorothiazide 100 tab PO DAILY 09/22/17 05/02/18 [Losartan-Hctz 100-25 mg Tab] Verapamil [Calan SR Tab] 240 mg PO DAILY 09/22/17 05/02/18 Review of Systems - Physician Review All systems were reviewed & negative as marked: Yes - Review of Systems Constitutional: absent: Fevers ENT: absent: Sore Throat Respiratory: SOB. absent: Cough Cardiovascular: absent: Chest Pain, HAWKINS Gastrointestinal: absent: Abdominal Pain, Stool Changes, Diarrhea, Nausea, Vomiting Genitourinary Female: absent: Urine Output Changes Musculoskeletal: absent: Back Pain, Neck Pain Neurological: absent: Headache, Dizziness Physical Exam Vital Signs Reviewed: Yes Vital Signs Temp Pulse Resp BP Pulse Ox 05/03/18 01:30 98 H 18 137/74 98 05/02/18 22:15 22 98 05/02/18 21:50 98.1 F 95 H 20 121/80 100 Temperature: Afebrile Blood Pressure: Normal Pulse: Tachycardic Respiratory Rate: Normal Appearance: Positive for: Well-Appearing, Non-Toxic, Comfortable Pain Distress: None Mental Status: Positive for: Alert and Oriented X 3 - Systems Exam Head: Present: Atraumatic, Normocephalic Pupils: Present: PERRL Extroacular Muscles: Present: EOMI Conjunctiva: Present: Normal Mouth: Present: Moist Mucous Membranes Neck: Present: Normal Range of Motion Respiratory/Chest: No: Good Air Exchange (Poor air entry bilaterally), Respiratory Distress, Accessory Muscle Use Cardiovascular: Present: Regular Rate and Rhythm, Normal S1, S2. No: Murmurs Abdomen: No: Tenderness, Distention, Peritoneal Signs Back: Present: Normal Inspection Upper Extremity: Present: Normal Inspection. No: Cyanosis, Edema Lower Extremity: Present: Normal Inspection. No: Edema Neurological: Present: GCS=15, CN II-XII Intact, Speech Normal Skin: Present: Warm, Dry, Normal Color. No: Rashes Psychiatric: Present: Alert, Oriented x 3, Normal Insight, Normal Concentration Medical Decision Making ED Course and Treatment: 05/02/18 22:32 Impression: An 82 year old female presents to the emergency department with a complaint of shortness of breath. Plan: -- EKG -- Chest X-ray -- Bood Culture -- Labs -- Reassess and disposition Prior Visits: Notes and results from previous visits were reviewed. Progress Notes: 05/02/18 22:46: Chest X-ray read and interpreted by me shows no pneumonia. 05/02/18 22:47 EKG: Ordered, reviewed, and independently interpreted the EKG. Rate : 103 BPM Rhythm : Sinus Tachycardia Interpretation: 1st degree AV block. Non- specific ST- T changes. 05/03/18 12:51: Case discussed in detail with Dr. Davis, covering for Dr. Palomino who accepts patient to her service. - Lab Interpretations Microbiology Results: Microbiology Results 05/02/18 22:15 Blood-Venous Blood Culture - Preliminary NO GROWTH AFTER 24 HOURS 05/02/18 22:00 Blood-Venous Blood Culture - Preliminary NO GROWTH AFTER 24 HOURS Lab Results: 05/02/18 22:15 05/02/18 22:15 Lab Results 05/02/18 22:15: Sodium 133, Potassium 3.4 L, Chloride 89 L, Carbon Dioxide 37 H , Anion Gap 10, BUN 11, Creatinine 0.6 L, Est GFR ( Amer) > 60, Est GFR ( Non-Af Amer) > 60, Random Glucose 98, Calcium 10.5, Magnesium 1.5 L, Total Bilirubin 0.5, AST 40 H D, ALT 26, Alkaline Phosphatase 115, Lactate Dehydrogenase 394, Total Creatine Kinase < 20 L, Troponin I < 0.01, NT-Pro-B Natriuret Pep 279, Total Protein 6.3, Albumin 3.2, Globulin 3.1, Albumin/ Globulin Ratio 1.0 L 05/02/18 22:15: PT 12.1, INR 1.06, APTT 29.7 05/02/18 22:15: WBC 10.9, RBC 4.09, Hgb 11.2 L, Hct 35.7 L, MCV 87.3, MCH 27.4, MCHC 31.4, RDW 15.6 H, Plt Count 469 H, MPV 8.8, Gran % 73.8 H, Lymph % (Auto) 11.8 L, [place] % (Auto) 13.5 H, Eos % (Auto) 0.8 L, Baso % (Auto) 0.1, Gran # 8.07 H, Lymph # (Auto) 1.3, [place] # (Auto) 1.5 H, Eos # (Auto) 0.1, Baso # (Auto ) 0.01 I have reviewed the lab results: Yes - RAD Interpretation Radiology Orders: 05/02/18 22:03 CHEST PORTABLE [RAD] Stat - EKG Interpretation Interpreted by ED Physician: Yes Type: 12 lead EKG - Medication Orders Current Medication Orders: Acetaminophen (Tylenol 325mg Tab) 650 mg PO Q4H PRN PRN Reason: Pain, Mild (1-3) Albuterol/Ipratropium (Duoneb 3 Mg/0.5 Mg (3 Ml) Ud) 3 ml IH Q4H PRN PRN Reason: Shortness of Breath Albuterol/Ipratropium (Duoneb 3 Mg/0.5 Mg (3 Ml) Ud) 3 ml IH TIDRESP [facility] Last Admin: 05/03/18 19:34 Dose: 3 ml Aspirin (Ecotrin) 81 mg PO DAILY [facility] Last Admin: 05/03/18 09:59 Dose: 81 mg Atorvastatin Calcium (Lipitor) 20 mg PO DAILY [facility] Last Admin: 05/03/18 09:59 Dose: 20 mg Isosorbide Mononitrate (Imdur Er) 30 mg PO DAILY [facility] Last Admin: 05/03/18 10:00 Dose: 30 mg Levetiracetam (Keppra) 500 mg PO BID [facility] Last Admin: 05/03/18 18:32 Dose: 500 mg Levothyroxine Sodium (Synthroid) 25 mcg PO 0600 [facility] Last Admin: 05/03/18 06:48 Dose: 25 mcg Magnesium Oxide (Mag-Ox) 400 mg PO BID [facility] Stop: 05/06/18 11:16 Last Admin: 05/03/18 18:32 Dose: 400 mg Methylprednisolone (Solu-Medrol) 40 mg IVP Q12 [facility] Last Admin: 05/03/18 21:40 Dose: 40 mg IVP Administration Document 05/03/18 21:40 KOS (Rec: 05/03/18 21:40 KOS [id number]) Charges for Administration # of IVP Administrations 1 Verapamil HCl (Calan Sr Tab) 240 mg PO DAILY KATE Last Admin: 05/03/18 10:00 Dose: 240 mg MAR Pulse and Blood Pressure Document 05/03/18 10:00 KL (Rec: 05/03/18 10:00 KL [id number]) Pulse Pulse Rate (60-90) 94 Blood Pressure Blood Pressure (100/60-150/90) 163/91 Discontinued Medications Albuterol/Ipratropium (Duoneb 3 Mg/0.5 Mg (3 Ml) Ud) 3 ml IH Q15M KATE Stop: 05/02/18 23:31 Last Admin: 05/02/18 23:30 Dose: 3 ml Sodium Chloride (Sodium Chloride 0.9%) 1,000 mls @ 100 mls/hr IV .Q10H STA Stop: 05/03/18 09:45 Last Admin: 05/03/18 00:01 Dose: 100 mls/hr eMAR Start Stop Document 05/03/18 00:01 AD (Rec: 05/03/18 00:01 AD [id number]) Intravenous Solution Start Date 05/03/18 Start Time 00:01 Magnesium Oxide (Mag-Ox) 400 mg PO STAT STA Stop: 05/02/18 23:08 Last Admin: 05/02/18 23:15 Dose: 400 mg Methylprednisolone (Solu-Medrol) 125 mg IVP ONCE ONE Stop: 05/02/18 23:47 Last Admin: 05/03/18 00:00 Dose: 125 mg IVP Administration Document 05/03/18 00:00 AD (Rec: 05/03/18 00:00 AD [id number]) Charges for Administration # of IVP Administrations 1 Potassium Chloride (K-Dur 20 Meq Er Tab) 40 meq PO STAT STA Stop: 05/02/18 23:08 Last Admin: 05/02/18 23:15 Dose: 40 meq - Scribe Statement The provider has reviewed the documentation as recorded by the Nancyibelroy Bonilla Provider Scribe Attestation: All medical record entries made by the Scribe were at my direction and personally dictated by me. I have reviewed the chart and agree that the record accurately reflects my personal performance of the history, physical exam, medical decision making, and the department course for this patient. I have also personally directed, reviewed, and agree with the discharge instructions and disposition. Disposition/Present on Arrival - Present on Arrival Any Indicators Present on Arrival: No History of DVT/PE: No History of Uncontrolled Diabetes: No Urinary Catheter: No History of Decub. Ulcer: No History Surgical Site Infection Following: None - Disposition Have Diagnosis and Disposition been Completed?: Yes Diagnosis: COPD exacerbation, Lung cancer Disposition: HOSPITALIZED Disposition Time: 23:20 Condition: FAIR
[2018-05-02 22:46] LABS: BASO # 0.01 K/mm3 (0.0-2.0); BASO % 0.1 % (0.0-3.0); EOS # 0.1 (0.0-0.7); EOS % 0.8 % (1.5-5.0); GRAN # 8.07 (1.4-6.5); GRAN % 73.8 % (50.0-68.0); HEMOGLOBIN 11.2 g/dL (12.0-16.0); LYMPH # 1.3 (1.2-3.4); LYMPH % 11.8 % (22.0-35.0); MEAN CELL VOLUME 87.3 fl (80.0-105.0); MEAN CORPUSCULAR HEMOGLOBIN 27.4 pg (25.0-35.0); MEAN CORPUSCULAR HGB CONC 31.4 g/dl (31.0-37.0); MEAN PLATELET VOLUME 8.8 fl (7.0-11.0); MONO # 1.5 (0.1-0.6); MONO % 13.5 % (1.0-6.0); RBC 4.09 10^6/uL (3.5-6.1); RED CELL DISTRIBUTION WIDTH 15.6 % (11.5-14.5); WHITE BLOOD COUNT 10.9 10^3/ul (4.5-11.0)
[2018-05-02 22:51] LABS: INR 1.06; PARTIAL THROMBOPLASTIN TIME 29.7 Seconds (25.1-36.5); PROTHROMBIN TIME 12.1 SECONDS (9.4-12.5)
[2018-05-02 22:53] LABS: ALBUMIN 3.2 g/dL (3.0-4.8); ALT/SGPT 26 U/L (7-56); AST/SGOT 40 U/L (14-36); BLOOD UREA NITROGEN 11 mg/dL (7-21); CALCIUM 10.5 mg/dL (8.4-10.5); GFR NON-AFRICAN AMERICAN > 60
[2018-05-02] MEDS: Albuterol-Ipratrop 3 mg / 0.5 (3 ml) UD IH SCH ×3 (23:00→23:30)
[2018-05-02 23:04] LABS: B-TYPE NATRIURETIC PEPTIDE 279 pg/mL (0-450); TROPONIN I < 0.01 ng/mL
[2018-05-02] MEDS ORDERED: Magnesium Oxide 400 mg Tab UD PO STA (23:07)
[2018-05-02] MEDS ORDERED: Potassium Chloride 20 mEq ER Tab PO STA (23:07)
[2018-05-02] MEDS ORDERED: Sodium Chloride 0.9% 1,000 ML IV STA (23:46)
[2018-05-03] MEDS ORDERED: Albuterol-Ipratrop 3 mg / 0.5 (3 ml) UD IH PRN (00:10)
[2018-05-03] MEDS: Levothyroxine 25 MCG TAB PO SCH (06:48)
[2018-05-03] MEDS: Albuterol-Ipratrop 3 mg / 0.5 (3 ml) UD IH SCH ×3 (08:19→19:34)
[2018-05-03] MEDS: MethylPREDNISolone 40 mg Vial IVP SCH ×2 (09:59→21:40)
[2018-05-03] MEDS: Verapamil 240 mg ER Tab PO SCH (10:00)
--- NOTE | 2018-05-03 10:07 | RAD ---
Date of service: 05/02/2018 HISTORY: sob COMPARISON: 03/24/2018 FINDINGS: LUNGS: There is consolidation in the medial aspect of the right upper lobe probably related to treatment of previously identified tumor. PLEURA: Small left pleural effusion CARDIOVASCULAR: Normal. OSSEOUS STRUCTURES: No significant abnormalities. VISUALIZED UPPER ABDOMEN: Normal. OTHER FINDINGS: None. IMPRESSION: There is consolidation in the medial aspect of the right upper lobe probably related to treatment of previously identified tumor. Small pleural effusion on the left
[2018-05-03] MEDS: Magnesium Oxide 400 mg Tab UD PO SCH ×2 (11:46→18:32)
--- NOTE | 2018-05-03 12:08 | CARD ---
APPROVED REPORT Date of service: 05/02/2018 EKG Measurement Heart [id number] <Conclusion> Sinus tachycardia with 1st degree AV block Nonspecific ST and T wave abnormality Abnormal ECG
--- NOTE | 2018-05-03 18:27 | HP ---
HISTORY OF PRESENT ILLNESS: This is an 82-year-old female who is coming into the hospital with complaints of shortness of breath. The patient was in [facility] and was having worsening shortness of breath, so she was sent to the ER for further evaluation. The patient has stage 3 lung cancer and has been getting physical therapy at her subacute rehab. The patient is complaining of worsening shortness of breath and so was brought here for further evaluation. The patient has no complaints of any chest pain. No headaches. No dizziness. No nausea. No vomiting. No dysuria or frequency. She states she is breathing better. PAST MEDICAL HISTORY: 1. 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 2. COPD on home O2. 3. Hypertension. 4. Hypothyroidism. 5. Seizures on Keppra. HOME MEDICATIONS: Has been reviewed. FAMILY HISTORY: Noncontributory. SOCIAL HISTORY: She did smoke for 63 years, quit in 1993. She denies alcohol or drugs. PAST SURGICAL HISTORY: Cataracts. Patient's Oncologist is Dr. Cortes. PHYSICAL EXAMINATION: VITAL SIGNS: Temperature is 97.8, pulse 102, blood pressure 137/72, respiration 19, O2 saturation 94%. GENERAL: The patient lying in bed, uncomfortable, and in no acute distress. HEENT: Atraumatic and normocephalic. Anicteric sclerae. Moist mucosa. Morrill conjunctivae. No oral lesions. NECK: No JVD, anterior and posterior adenopathy, thyromegaly, or bruits. CARDIOVASCULAR: S1 and S2 regular. No murmur, rubs, or gallop. LUNGS: Good bilateral air entry, bilateral wheezing, mild. No rhonchi. No rales. ABDOMEN: Bowel sounds are positive. Soft, nontender and nondistended. No hepatosplenomegaly. No rebound and no guarding EXTREMITIES: No cyanosis, clubbing, or edema. NEUROLOGIC: No facial asymmetry. Tongue is midline. No uvula deviation. Power is 5/5 upper extremity and lower extremity. Sensation intact in upper extremity and lower extremity. PSYCHIATRIC: She is awake, alert and oriented x3. No anxiety or depression. She has normal affect. GENITOURINARY: No CVA tenderness. VASCULAR: 2+ pulses in the carotid pulses and pedal pulses. SKIN: No erythema or nodules SPINE: Shows normal curvature. LABORATORY DATA AND IMAGING: White count of 10.9, hemoglobin 11.2, platelet count is 469. Chemistry shows potassium of 3.4. She has a magnesium of 1.5. Chest x-ray done shows consolidation in the medial aspect of the right upper lobe probably related to tumor. ASSESSMENT: 1. Acute chronic obstructive pulmonary disease. 2. Lung cancer, stage 4. 3. Hypertension. 4. Hypothyroidism. 6. Seizure disorder on Keppra. 7. Hypomagnesemia and hypokalemia. PLAN: The patient is admitted to the hospital because of an acute COPD exacerbation. The patient is going to be on IV steroids and nebulizer treatments. She states she is feeling better. She states she has mild wheezing. The patient has been placed on verapamil. She is going to continue with aspirin. She is on steroids. She is on Synthroid for hypothyroidism. She is going to be on home O2. She has blood cultures that were done and are pending. She is currently feeling better. The patient's potassium was replaced. Patient will also be placed on magnesium. I will recheck her blood work tomorrow. Waldo Davis MD
[2018-05-04] MEDS: Levothyroxine 25 MCG TAB PO SCH (06:50)
[2018-05-04 06:56] LABS: ALT/SGPT 25 U/L (7-56); AST/SGOT 32 U/L (14-36); BLOOD UREA NITROGEN 11 mg/dL (7-21); CALCIUM 10.1 mg/dL (8.4-10.5); GFR NON-AFRICAN AMERICAN > 60; HEMOGLOBIN 10.3 g/dL (12.0-16.0); MEAN CELL VOLUME 86.8 fl (80.0-105.0); MEAN CORPUSCULAR HEMOGLOBIN 26.7 pg (25.0-35.0); MEAN CORPUSCULAR HGB CONC 30.7 g/dl (31.0-37.0); MEAN PLATELET VOLUME 8.6 fl (7.0-11.0); RBC 3.86 10^6/uL (3.5-6.1); RED CELL DISTRIBUTION WIDTH 16.1 % (11.5-14.5); WHITE BLOOD COUNT 11.5 10^3/ul (4.5-11.0)
[2018-05-04] MEDS: Albuterol-Ipratrop 3 mg / 0.5 (3 ml) UD IH SCH ×3 (07:29→19:48)
[2018-05-04] MEDS: MethylPREDNISolone 40 mg Vial IVP SCH ×2 (10:15→22:10)
[2018-05-04] MEDS: Magnesium Oxide 400 mg Tab UD PO SCH ×2 (10:16→18:56)
[2018-05-04] MEDS: Verapamil 240 mg ER Tab PO SCH (10:16)
[2018-05-04] MEDS: Lidocaine 5% Patch TD SCH (12:08)
[2018-05-04] MEDS: TraMADol/Apap 37.5/325 mg Tab PO SCH ×2 (12:09→22:09)
--- NOTE | 2018-05-04 13:27 | PN ---
DATE: 05/04/2018 SUBJECTIVE: The patient is 82 years old, seen and examined. Still has shortness of breath. Complained of pain in the left lower back area. The patient started to say that she was in rehab and she was without oxygen for a couple of hours. She was having difficulty breathing. Her legs were getting purple. So she asked the nursing staff for help and she was transferred to emergency room. She still complained of shortness of breath and lower back pain, but better than before. No fever or chills. No nausea or vomiting. PHYSICAL EXAMINATION: VITAL SIGNS: She is afebrile, pulse 86, respirations 20, blood pressure 144/65. LUNGS: Bilateral diffusely decreased breath sound. HEART: S1 and S2 audible. ABDOMEN: Soft. Nontender. No rebound. No guarding. NEUROLOGICAL: She is awake, alert, oriented, communicative. MUSCULOSKELETAL: She has stage II ulcer in her lower sacral area and she complained of pain in the left ring of ilium area and left lower back. Hurts to move in the bed. LABORATORY EXAM: WBC is 11.5, hemoglobin 10.3, hematocrit 33.5, platelet 397. Chemistry: Sodium 134, potassium 45, chloride 93, CO2 of 37, BUN 11, creatinine 0.6, blood sugar 135. Blood cultures are negative. ASSESSMENT: 1. Chronic obstructive pulmonary disease exacerbation. 2. Right upper lung mass, status post radiation. 3. Hypertension. 4. Hypothyroidism. 5. Seizure disorder. 6. Electrolyte imbalance. 7. Small left pleural effusion. PLAN: Currently, the patient is on verapamil. She is getting nebulizer treatment. She is on aspirin 81 daily. She is on isosorbide and Keppra. She is on small dose of steroid. She is getting nebulizers. She is on levothyroxine. I tapered down her prednisone to 30 every 12 as per Physical Therapy evaluation. We will watch her another 24 hours. If she started to improve, we will make discharge plan in the a.m. Rosana Palomino MD
[2018-05-05] MEDS: Levothyroxine 25 MCG TAB PO SCH (05:56)
[2018-05-05] MEDS: Albuterol-Ipratrop 3 mg / 0.5 (3 ml) UD IH SCH ×3 (07:24→19:15)
--- NOTE | 2018-05-05 08:14 | CON ---
DATE: 05/05/2018 ONCOLOGY CONSULTATION HISTORY OF PRESENT ILLNESS: This is an 82-year-old woman with a right upper lobe lung cancer. This was treated in [place] about 3 to 4 years ago with radiation therapy. I saw her about a year ago. 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 We worked up at that time and the decision was made not to give her any treatment so she has been on no further treatment whatsoever since the radiation therapy. She came in a couple of months ago for postobstructive pneumonia that got better. She had been in the rehab for less period of time with an increasing shortness of breath and decreased appetite. PHYSICAL EXAMINATION: SKIN: No petechiae. No bruises. HEENT: Anicteric. NODES: Nonpalpable in the axillary, cervical, supraclavicular or inguinal regions. LUNGS: Show decreased breath sounds bilaterally emphysema, but no rhonchi or wheezing or rubs. HEART: S1 and S2. ABDOMEN: Shows no liver, no spleen, no tenderness. EXTREMITIES: No edema. JANITORIAL TECH: No focal findings. DATA: Laboratory findings are really not that bad. No hypercalcemia. No severe anemia. The chest x-ray shows the consolidation in the radiation therapy field. ASSESSMENT: If I remember correctly there is progressive cancer within that radiation therapy field, but in any event, there is no mets to the opposite lung or to account for some of shortness of breath other than her age, other than her debilitated state and other than her underlying emphysema secondary to severe smoking for many years. At this point, there is no treatment plan for the lung cancer or further workup for the lung cancer. The most of these symptoms are coming from the lungs in terms of emphysema, etc. and we will leave it to Pulmonary, etc. to maximize her condition. I have spoken to the daughter yesterday and I will speak to her again this week. Michael Cortes MD
[2018-05-05] MEDS: Magnesium Oxide 400 mg Tab UD PO SCH ×2 (10:23→17:19)
[2018-05-05] MEDS: Verapamil 240 mg ER Tab PO SCH (10:23)
[2018-05-05] MEDS: Lidocaine 5% Patch TD SCH (10:24)
[2018-05-05] MEDS: MethylPREDNISolone 40 mg Vial IVP SCH ×2 (10:24→21:45)
--- NOTE | 2018-05-05 12:46 | PN ---
DATE: 05/05/2018 SUBJECTIVE: The patient is 82 years old, seen and examined, lying in bed. Seemed to be having mild shortness of breath. No nausea or vomiting. Complained of generalized weakness. PHYSICAL EXAMINATION: VITAL SIGNS: She is afebrile, pulse 84, respirations 18, blood pressure 132/76. LUNGS: Bilateral expiratory rhonchi, more so in the right upper lung region. HEART: S1 and S2 audible. ABDOMEN: Soft. Nontender. No rebound. No guarding. NEUROLOGICAL: The patient is awake, alert, oriented, able to communicate. EXTREMITIES: Bilateral leg, no edema. LABORATORY EXAM: There is no new lab available today. ASSESSMENT AND PLAN: 1. Chronic obstructive pulmonary disease exacerbation. 2. Bronchospasm. 3. Hypoxia. 4. History of cancer of lung. 5. Seizure disorder. 6. Hypothyroidism. 7. Electrolyte imbalance. Currently, the patient is on verapamil. She is getting nebulizer treatment. She is on aspirin. We will continue Keppra and isosorbide. We will continue IV steroid. We will reevaluate in the a.m. If continue to improve, we will discharge plan. Rosana Palomino MD
[2018-05-05] MEDS: TraMADol/Apap 37.5/325 mg Tab PO SCH ×2 (13:14→19:23)
[2018-05-06] MEDS: TraMADol/Apap 37.5/325 mg Tab PO SCH ×3 (03:45→19:45)
[2018-05-06] MEDS: Levothyroxine 25 MCG TAB PO SCH (06:10)
[2018-05-06] MEDS: Albuterol-Ipratrop 3 mg / 0.5 (3 ml) UD IH SCH ×3 (07:52→19:27)
[2018-05-06] MEDS: Magnesium Oxide 400 mg Tab UD PO SCH (09:31)
[2018-05-06] MEDS: Verapamil 240 mg ER Tab PO SCH (09:31)
[2018-05-06] MEDS: MethylPREDNISolone 40 mg Vial IVP SCH (09:31)
[2018-05-06] MEDS: Lidocaine 5% Patch TD SCH (09:32)
[2018-05-06] MEDS ORDERED: guaiFENesin 100 mg/5 ml Syrup UD PO PRN (11:07)
[2018-05-06] MEDS: POLYETHYLENE GLYCOL 3350 17 GM/Dose PACKET PO SCH (12:49)
--- NOTE | 2018-05-06 13:35 | DS ---
HISTORY OF PRESENT ILLNESS: The patient is 82 years old, seen and examined. The patient's daughter states she was in rehab and her color was getting orellana and she was short of breath. So she was brought to emergency room. The patient is known for having COPD, hypertension and right lung mass. So that she got radiation therapy, but she was never in favor of getting chemotherapy. The patient was evaluated by Dr. Cortes, who discussed with the patient and agreed at this point she is not a candidate for any aggressive intervention given her age and another comorbidities; however, the patient was given steroid and antibiotic. Doing well. PHYSICAL EXAMINATION: GENERAL: She is awake, alert, oriented. Gets short of breath on walking, but stable otherwise. VITAL SIGNS: She is afebrile, pulse 90, respirations 18, blood pressure 138/67. LUNGS: Bilateral fair airflow. Decreased at bases and posteriorly. HEART: S1 and S2 audible. ABDOMEN: Soft. Nontender. No rebound. No guarding. NEUROLOGICAL: The patient is awake, alert, oriented, communicative. Able to ambulate. SKIN: She has stage II sacral decubitus. ASSESSMENT: 1. Chronic obstructive pulmonary disease exacerbation. 2. Bronchospasm. 3. Right lung mass, status post radiation a year and a half ago. Evaluated by Dr. Cortes. Decision is to not do any aggressive intervention. 4. Chronic obstructive pulmonary disease. 5. Seizure disorder. PLAN: The patient is being discharged back to rehab. on verapamil, losartan, levothyroxine. We will change her medication to prednisone 20 mg twice a day for 5 more days. She will be transferred back to rehab. She will follow up with me when she is discharged from rehab. Rosana Palomino MD
[2018-05-06 21:13] VITALS: RESP 18
[2018-05-07] MEDS: TraMADol/Apap 37.5/325 mg Tab PO SCH ×2 (03:45→11:51)
[2018-05-07] MEDS: Levothyroxine 25 MCG TAB PO SCH (06:42)
[2018-05-07] MEDS: Albuterol-Ipratrop 3 mg / 0.5 (3 ml) UD IH SCH ×2 (07:25→13:06)
[2018-05-07 09:19] VITALS: BP 167/78; PULSE 86; TEMP 97.6; O2SAT 95
[2018-05-07] MEDS: POLYETHYLENE GLYCOL 3350 17 GM/Dose PACKET PO SCH (10:04)
[2018-05-07] MEDS: Lidocaine 5% Patch TD SCH (10:04)
[2018-05-07] MEDS: Verapamil 240 mg ER Tab PO SCH (10:04)
--- NOTE | 2018-05-08 10:50 | DS ---
Copied To: Rosana Palomino MD Attending MD: Rosana Palomino MD HISTORY OF PRESENT ILLNESS: The patient is 82 years old, who was admitted with increasing shortness of breath and was discharged today [facility], doing well, was given IV steroids and nebulizer treatment, feeling fine, ready to be transferred to rehab again. PHYSICAL EXAMINATION: VITAL SIGNS: She is afebrile, pulse 86, respirations 18, blood pressure 167/78. LUNGS: Bilateral fair airflow. No rhonchi or crackle. HEART: S1 and S2 audible. ABDOMEN: Soft, nontender. No rebound. No guarding. NEUROLOGIC: The patient is awake, alert, oriented, and communicative. Able to ambulate with minimal assistance. ASSESSMENT AND PLAN: 1. Right upper lung mass, status post radiation therapy. 2. Hypertension. 3. Hyperlipidemia. 4. Seizure disorder. 5. Chronic obstructive pulmonary disease. PLAN: We will switch her prednisone to p.o. The patient will be discharged home and I will follow up when she is . Rosana Palomino MD
== END 2018-05-07 15:55 | DRG 191 ==
LOC: ED 21:39 → ERH 23:45 → 2RNO 05-03 01:43 → OBSVTOIN 05-04 11:52 → 5RSO 05-04 17:34
PROVIDERS: ADMIT Internal Medicine; ATTEND Internal Medicine
DX: J44.1 Chronic obstructive pulmonary disease with (acute) exacerbation (principal); C79.51 Secondary malignant neoplasm of bone; C34.11 Malignant neoplasm of upper lobe, right bronchus or lung; C77.9 Secondary and unspecified malignant neoplasm of lymph node, unspecified; J90 Pleural effusion, not elsewhere classified; I10 Essential (primary) hypertension; L89.152 Pressure ulcer of sacral region, stage 2; E03.9 Hypothyroidism, unspecified; G40.909 Epilepsy, unspecified, not intractable, without status epilepticus; E87.6 Hypokalemia; E83.42 Hypomagnesemia; R09.02 Hypoxemia; M54.5 Low back pain; Z92.3 Personal history of irradiation; Z87.891 Personal history of nicotine dependence; Z99.81 Dependence on supplemental oxygen; Z79.82 Long term (current) use of aspirin; Z88.5 Allergy status to narcotic agent